=== PATIENT | male | born 1955 | race Caucasian/White ===

== ENCOUNTER 2019-06-03 15:12 | Emergency (ER) | payer OTHER ==
[2019-06-03] MEDS ORDERED: PANTOPRAZOLE 40 MG INJ ONE (15:32)
[2019-06-03] MEDS ORDERED: SUCRALFATE 1 GM TABLET ONE (15:32)
[2019-06-03 15:42] LABS: Absolute Lymphocytes (CBC) 1.7 K/uL (0.7-4.9); Basophils % 0.4 % (0-1.3); Hematocrit 38.8 % (39.6-49.0); Lymphocytes % 14.1 % (15.3-44.8); MPV 7.9 fL (7.6-11.3); RBC Red Blood Cell Count 4.26 M/uL (4.33-5.43)
[2019-06-03 15:44] LABS: Protime INR 1.07
[2019-06-03 16:00] LABS: ALT/SGPT 15 U/L (12-78); AST/SGOT 21 U/L (15-37); Albumin 3.8 g/dL (3.4-5.0); Alkaline Phosphatase 114 U/L (45-117); BUN Blood Urea Nitrogen 15 mg/dL (7-18); Bicarbonate 23 mmol/L (21-32); Bilirubin Direct 0.1 mg/dL (0-0.2); Bilirubin Total 0.3 mg/dL (0.2-1.0); Glucose Level 90 mg/dL (74-106); Potassium 3.5 mmol/L (3.5-5.1); Protein, Total 8.6 g/dL (6.4-8.2); Sodium Level 140 mmol/L (136-145)
[2019-06-03 16:01] LABS: Magnesium 2.2 mg/dL (1.8-2.4); NT PRO-BNP 96 pg/mL (<125); Troponin (Emerg Dept Use Only) < 0.02 ng/mL (0.0-0.045)
--- NOTE | 2019-06-03 16:53 | RAD REPORT ---
EXAM DESCRIPTION: [place] Single View06/03/2019 4:02 pm CLINICAL HISTORY: Chest pain COMPARISON: 2017 FINDINGS: The lungs appear clear of acute infiltrate. The heart is normal size. Elevation right hemidiaphragm is unchanged IMPRESSION: No acute abnormalities displayed
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
[2019-06-03 19:38] VITALS: TEMP 98.2
[2019-06-03 19:42] VITALS: BP 167/98; O2SAT 98
--- NOTE | 2019-06-05 11:47 | EKG ---
Test Date: 2019-06-03 Test Time: 15:18:06 Synchro Assembler: OMAIRA MEASUREMENT RESULTS: Intervals: Rate: 82 WI: 134 QRSD: 142 QT: 424 QTc: 495 [place]: P: 43 WI: 134 QRS: 13 T: 8 INTERPRETIVE STATEMENTS: Normal sinus rhythm Right bundle branch block Abnormal ECG Compared to ECG 01/14/2016 16:12:08 Right bundle-branch block now present ST (T wave) deviation no longer present Possible ischemia no longer present Electronically Signed On 06-05-19 11:42:34 MOISTURE METER READER by Julien Antony
--- NOTE | 2019-06-06 10:22 | EKG ---
Test Date: 2019-06-03 Test Time: 18:05:38 Manager Acquisition: ALFREDO MEASUREMENT RESULTS: Intervals: Rate: 68 ME: 176 QRSD: 138 QT: 442 QTc: 469 [place]: P: 39 ME: 176 QRS: 19 T: 5 INTERPRETIVE STATEMENTS: Normal sinus rhythm Right bundle branch block Abnormal ECG Compared to ECG 06/03/2019 15:18:06 No significant changes Electronically Signed On 06-06-19 10:21:59 GRADE FOREMAN by Faisal May
== END 2019-06-03 19:33 | disposition home or self-care (01) ==
LOC: ER 15:12
DX: K21.9 Gastro-esophageal reflux disease without esophagitis (principal); I10 Essential (primary) hypertension; Z88.0 Allergy status to penicillin
CPT/HCPCS: 93005 ×2; 87040 ×2; 85025; 80048; 36415; 86900; 83735; 86850; 85610; 86901; 80076; 84443; 84484 ×2; 83880; 71045; 96374; 99285; C9113

== ENCOUNTER 2020-08-10 15:21 | Emergency (ER) | payer OTHER ==
[2020-08-10] MEDS ORDERED: IBUPROFEN 400 MG TAB ONE (17:35)
--- NOTE | 2020-08-10 18:16 | RAD REPORT ---
EXAM DESCRIPTION: RAD - Wrist Right 3 View - 08/10/2020 6:01 pm CLINICAL HISTORY: Right wrist pain and swelling FINDINGS: Screws have been placed into the distal radius and ulna. Bones are osteoporotic No acute fracture or dislocation seen. No bony destructive lesion noted.
--- NOTE | 2020-08-10 19:50 | RAD REPORT ---
EXAM DESCRIPTION: USExtremity Venous [employer]08/10/2020 7:42 pm CLINICAL HISTORY: Right arm pain COMPARISON: None FINDINGS: Echogenic material compatible with acute thrombus is present within the right basilic vein . There is diminished flow. The right internal jugular, right subclavian, right cephalic, right axillary, right brachial, right ulnar and right radial veins are generally compressible and demonstrate augmentation. Doppler demons trates good flow. IMPRESSION: Acute thrombus within the right basilic vein
[2020-08-10 20:27] LABS: Absolute Lymphocytes (CBC) 2.4 K/uL (0.7-4.9); Basophils % 0.5 % (0-1.3); Hematocrit 34.5 % (39.6-49.0); Lymphocytes % 27.3 % (15.3-44.8); MPV 8.1 fL (7.6-11.3)
[2020-08-10 20:33] LABS: Protime INR 1.02
[2020-08-10 20:38] LABS: Potassium 3.9 mmol/L (3.5-5.1)
--- NOTE | 2020-08-10 21:13 | EDPHYS ---
Physician Documentation [facility] Name: Giuliano Leyva Age: 64 yrs Sex: Male : 1955 Arrival Date: 08/10/2020 Time: 15:34 Bed 7 Private MD: ED Physician Turner Cohen HPI: 08/10 17:20 This 64 yrs old Male presents to ER via EMS with complaints of Arm Pain - cp right, Wrist Pain. 17:20 The patient or guardian complains of pain, that is acute, swelling, tenderness. The cp complaints affect the right wrist. Context: resulted from unknown cause. Onset: The symptoms/episode began/occurred 3 day(s) ago. 17:20 Treatment prior to arrival includes: no previous treatment. cp 17:20 Associated signs and symptoms: Pertinent negatives: deformity, erythema, fever, cp numbness. Historical: - Allergies: 15:58 PENICILLINS; jd3 - Home Meds: 15:58 vicodin 10 mg Q6H PRN [Active]; losartan Oral [Active]; Lovastatin Oral [Active]; jd3 Pepcid Oral [Active]; - PMHx: 15:58 GERD; High Cholesterol; Hypertension; Paraplegia; jd3 - PSHx: 15:58 Appendectomy; Cholecystectomy; exploratory abd surgery; R wrist; L nephrectomy; jd3 - Immunization history:: Adult Immunizations up to date. - Social history:: Smoking status: Patient/guardian denies using tobacco, the patient reports quitting approximately 15 years ago. ROS: 17:25 Constitutional: Negative for body aches, chills, fever, poor PO intake. cp 17:25 Eyes: Negative for injury, pain, redness, and discharge. cp 17:25 Cardiovascular: Negative for chest pain. 17:25 Respiratory: Negative for cough, shortness of breath, wheezing. 17:25 MS/extremity: Positive for pain, swelling, tenderness, of the right hand and right wrist, Negative for injury or acute deformity, paresthesias. 17:25 Skin: Negative for cellulitis, rash. 17:25 All other systems are negative. Exam: 17:30 Constitutional: The patient appears in no acute distress, alert, awake, non-toxic, well cp developed, well nourished. 17:30 Head/Face: Normocephalic, atraumatic. cp 17:30 Chest/axilla: Inspection: normal. 17:30 Cardiovascular: Rate: normal. 17:30 Respiratory: the patient does not display signs of respiratory distress, Respirations: normal, no use of accessory muscles, no retractions, labored breathing, is not present. 17:30 Musculoskeletal/extremity: Extremities: grossly normal except: noted in the lateral right wrist and dorsum of proximal right hand: pain, tenderness, mild swelling, ROM: full active range of motion, in the right wrist, limited passive range of motion due to pain, in the right wrist, Perfusion: the extremity is normally perfused throughout, Sensation intact. 17:30 Skin: cellulitis, is not appreciated, no rash present. Vital Signs: 15:58 BP 127 / 72; Pulse 76; Resp 17 S; Temp 97.5(TE); Pulse Ox 97% on R/A; Weight 111.13 kg jd3 (R); Height 6 ft. 0 in. (182.88 cm) (R); Pain 8/10; 17:05 BP 117 / 65; Pulse 81; Resp 16 S; Pulse Ox 99% on R/A; ca1 18:10 BP 136 / 83; Pulse 63; Resp 16 S; Pulse Ox 100% on R/A; ca1 19:41 BP 104 / 66; Pulse 66; Resp 17; Pulse Ox 98% ; rr5 20:50 BP 103 / 70; Pulse 69; Resp 16; Pulse Ox 98% ; rr5 15:58 Body Mass Index 33.23 (111.13 kg, 182.88 cm) jd3 MDM: 17:16 Patient medically screened. 20:29 Physician consultation: Malina English MD was called at 20:29, was contacted at 20:29, regarding patient's condition, discussed findings of US showing thrombus of right basilic vein and treatment. Recommends treating with rest, ice and NSAIDs and f/u next week for recheck with primary care physician. 21:05 Data reviewed: vital signs, nurses notes, lab test result(s), radiologic studies, plain cp films, ultrasound, I have discussed the patient's presentation/case with the attending Emergency Department Physician;. 21:10 Counseling: I had a detailed discussion with the patient and/or guardian regarding: the cp historical points, exam findings, and any diagnostic results supporting the discharge/admit diagnosis, lab results, radiology results, the need for outpatient follow up, a family practitioner, to return to the emergency department if symptoms worsen or persist or if there are any questions or concerns that arise at home. 21:10 Response to treatment: the patient's symptoms have markedly improved after treatment. cp ED course: VSS. Discussed results of labs and US showing thrombus of right basilic vein. Patient reports he has appt this Thursday at [place] in which he can f/u for reevaluation. Patient instructed to apply warm compress to area, elevate, NSAIDs for pain. 08/10 20:01 Order name: CBC with Diff cp 08/10 20:01 Order name: BMP cp 08/10 20:01 Order name: PT-INR cp 08/10 20:01 Order name: Ptt, Activated cp 08/10 20:30 Order name: CBC with Automated Diff; Complete Time: 21:04 EDMS 08/10 20:38 Order name: Basic Metabolic Panel; Complete Time: 21:04 EDMS 08/10 17:16 Order name: XRAY Wrist RIGHT 3 view; Complete Time: 19:52 cp 08/10 18:16 Order name: US Extremity Venous Unilateral Ltd cp 08/10 19:51 Order name: US; Complete Time: 19:52 EDMS 08/10 19:52 Interpretation: Report reviewed. cp 08/10 20:39 Order name: Protime (+INR); Complete Time: 21:04 EDMS 08/10 20:39 Order name: PTT, Activated Partial Thromb; Complete Time: 21:04 EDMS 08/10 21:11 Order name: Wrist Splint; Complete Time: 21:36 cp Administered Medications: 17:21 Drug: Ibuprofen 800 mg Route: PO; ca1 20:05 Follow up: Response: No adverse reaction mg2 21:37 Drug: TORadol - Ketorolac 15 mg Route: IVP; Site: left wrist; mg2 21:37 Follow up: Response: No adverse reaction mg2 Disposition: 08/11 06:49 Co-signature as Attending Physician, Turner Cohen MD I agree with the assessment and kdr plan of care. Disposition: 08/10/20 21:12 Discharged to Home. Impression: Acute embolism and thrombosis of superficial veins of right upper extremity. - Condition is Stable. - Discharge Instructions: Elastic Bandage and RICE, Venous Thromboembolism. - Prescriptions for Ibuprofen 800 mg Oral Tablet - take 1 tablet by ORAL route every 8 hours As needed take with food; 30 tablet. - Medication Reconciliation Form, Thank You Letter, Antibiotic Education, Prescription Opioid Use form. - Follow up: Private Physician; When: next week as scheduled; Reason: Recheck today's complaints. - Problem is new. - Symptoms have improved. Signatures: Dispatcher [employer] EDMS Turner Cohen MD MD kdr Eulalio Abraham PA PA cp Davies, Jonathon, RN RN jd3 Jh Castellanos RN RN mg2 Shawna Stanley RN RN ca1 Corrections: (The following items were deleted from the chart) 08/10 21:38 21:12 08/10/2020 21:12 Discharged to Home. Impression: Acute embolism and thrombosis of mg2 superficial veins of right upper extremity. Condition is Stable. Forms are Medication Reconciliation Form, Thank You Letter, Antibiotic Education, Prescription Opioid Use. Follow up: Private Physician; When: next week as scheduled; Reason: Recheck today's complaints. Problem is new. Symptoms have improved. cp 08/11 15:34 08/10 17:20 Onset: The symptoms/episode began/occurred 2 day(s) ago, cp cp
--- NOTE | 2020-08-10 21:13 | ER ---
Nurse's Notes [facility] Name: Giuliano Leyva Age: 64 yrs Sex: Male : 1955 Arrival Date: 08/10/2020 Time: 15:34 Bed 7 Private MD: Diagnosis: Acute embolism and thrombosis of superficial veins of right upper extremity Presentation: 08/10 15:56 Chief complaint: Patient states: Starting Thursday I started to have some swelling and jd3 pain in my right arm/hand. since then it has only gotten worse and more swollen. history of cellulitis, but I don't think that it is that, I don't have any injury, but I think it might be a stress fracture.". Coronavirus screen: At this time, the client does not indicate any symptoms associated with coronavirus-19. Ebola Screen: Patient negative for fever greater than or equal to 101.5 degrees Fahrenheit, and additional compatible Ebola Virus Disease symptoms. Initial Sepsis Screen: Does the patient meet any 2 criteria? No. Patient's initial sepsis screen is negative. Does the patient have a suspected source of infection? No. Patient's initial sepsis screen is negative. Risk Assessment: Do you want to hurt yourself or someone else? Patient reports no desire to harm self or others. Onset of symptoms was August 10, 2020. 15:56 Method Of Arrival: EMS: Home EMS jd3 15:56 Acuity: MISAEL 3 jd3 Historical: - Allergies: 15:58 PENICILLINS; jd3 - Home Meds: 15:58 vicodin 10 mg Q6H PRN [Active]; losartan Oral [Active]; Lovastatin Oral [Active]; jd3 Pepcid Oral [Active]; - PMHx: 15:58 GERD; High Cholesterol; Hypertension; Paraplegia; jd3 - PSHx: 15:58 Appendectomy; Cholecystectomy; exploratory abd surgery; R wrist; L nephrectomy; jd3 - Immunization history:: Adult Immunizations up to date. - Social history:: Smoking status: Patient/guardian denies using tobacco, the patient reports quitting approximately 15 years ago. Screenin:05 Abuse screen: Denies threats or abuse. Denies injuries from another. Nutritional ca1 screening: No deficits noted. Tuberculosis screening: No symptoms or risk factors identified. Fall Risk None identified. Assessment: 17:05 General: Appears in no apparent distress. comfortable, Behavior is calm, cooperative, ca1 appropriate for age. Pain: Complains of pain in right wrist Pain currently is 8 out of 10 on a pain scale. Pain began 4 hours ago. 4 DAYS. Neuro: Level of Consciousness is awake, alert, obeys commands, Oriented to person, place, time, Appropriate for age. Derm: Skin is intact, is healthy with good turgor, Skin is pink, warm \\T\\ dry. Musculoskeletal: Circulation, motion, and sensation intact. Capillary refill < 3 seconds, Range of motion: limited in right wrist Swelling present in right wrist. 18:10 Reassessment: Patient appears in no apparent distress at this time. Patient and/or ca1 family updated on plan of care and expected duration. Pain level reassessed. Patient is alert, oriented x 3, equal unlabored respirations, skin warm/dry/pink. 19:39 General: Appears in no apparent distress. comfortable, Behavior is calm, cooperative, rr5 appropriate for age. Neuro: Level of Consciousness is awake, alert, obeys commands, Oriented to person, place, time. Cardiovascular: Capillary refill < 3 seconds Patient's skin is warm and dry. Respiratory: Airway is patent Respiratory effort is even, unlabored, Respiratory pattern is regular, symmetrical. GI: No signs and/or symptoms were reported involving the gastrointestinal system. : No signs and/or symptoms were reported regarding the genitourinary system. EENT: No signs and/or symptoms were reported regarding the EENT system. Derm: Skin is intact, is healthy with good turgor, Skin temperature is warm. Musculoskeletal: Capillary refill < 3 seconds, Swelling present in right wrist Reports pain in right arm and right wrist. 20:40 Reassessment: Patient appears in no apparent distress at this time. Patient is alert, rr5 oriented x 3, equal unlabored respirations, skin warm/dry/pink. snacks given with good appetite. 21:35 Reassessment: Patient appears in no apparent distress at this time. Patient is alert, rr5 oriented x 3, equal unlabored respirations, skin warm/dry/pink. discharge instruction given and explained without complaints made. Vital Signs: 15:58 BP 127 / 72; Pulse 76; Resp 17 S; Temp 97.5(TE); Pulse Ox 97% on R/A; Weight 111.13 kg jd3 (R); Height 6 ft. 0 in. (182.88 cm) (R); Pain 8/10; 17:05 BP 117 / 65; Pulse 81; Resp 16 S; Pulse Ox 99% on R/A; ca1 18:10 BP 136 / 83; Pulse 63; Resp 16 S; Pulse Ox 100% on R/A; ca1 19:41 BP 104 / 66; Pulse 66; Resp 17; Pulse Ox 98% ; rr5 20:50 BP 103 / 70; Pulse 69; Resp 16; Pulse Ox 98% ; rr5 15:58 Body Mass Index 33.23 (111.13 kg, 182.88 cm) jd3 ED Course: 15:34 Patient arrived in ED. am2 15:57 Triage completed. jd3 16:00 Arm band placed on. jd3 17:05 Patient has correct armband on for positive identification. Bed in low position. Call ca1 light in reach. Side rails up X 1. Pulse ox on. NIBP on. Warm blanket given. 17:07 Eulalio Abraham PA is PHCP. cp 17:07 Turner Cohen MD is Attending Physician. cp 17:10 Shawna Stanley RN is Primary Nurse. ca1 18:10 XRAY Wrist RIGHT 3 view In Process Unspecified. EDMS 19:15 ultrasound at bedside. rr5 19:43 No provider procedures requiring assistance completed. mg2 20:20 Inserted saline lock: 20 gauge in left wrist, using aseptic technique. Blood collected. rr5 21:37 IV discontinued, intact, bleeding controlled, No redness/swelling at site. Pressure mg2 dressing applied. Velcro wrist splint applied to right wrist. Administered Medications: 17:21 Drug: Ibuprofen 800 mg Route: PO; ca1 20:05 Follow up: Response: No adverse reaction mg2 21:37 Drug: TORadol - Ketorolac 15 mg Route: IVP; Site: left wrist; mg2 21:37 Follow up: Response: No adverse reaction mg2 Outcome: 21:12 Discharge ordered by . cp 21:37 Discharged to home via wheelchair. mg2 21:37 Condition: stable 21:37 Discharge instructions given to patient, Instructed on discharge instructions, follow up and referral plans. medication usage, Demonstrated understanding of instructions, follow-up care, medications, Prescriptions given X 1. 21:38 Patient left the ED. mg2 Signatures: Dispatcher [employer] EDMS Eulalio Abraham PA PA cp Moreno, Amanda am2 Oleksandr Grigsby RN RN jd3 Jh Castellanos RN RN mg2 Boris Matias, HAYDEN RN rr5 Shawna Stanley RN RN ca1 Corrections: (The following items were deleted from the chart) 16:01 15:56 Chief complaint: Patient states: Starting Thursday I started to have some swelling jd3 and pain in my right arm/hand. since then it has only gotten worse and more swollen. history of cellulitis." jd3
[2020-08-10] MEDS ORDERED: KETOROLAC 30 MG/ML INJ ONE (21:31)
== END 2020-08-10 21:38 | disposition home or self-care (01) ==
LOC: ER 15:21
DX: I82.611 Acute embolism and thrombosis of superficial veins of right upper extremity (principal); I10 Essential (primary) hypertension; E78.00 Pure hypercholesterolemia, unspecified; Z88.0 Allergy status to penicillin
CPT/HCPCS: 36415; 80048; 85025; 85610; 85730; 93971; 96374; 99284

== ENCOUNTER 2021-01-26 16:06 | Emergency (ER) | payer OTHER ==
[2021-01-26] MEDS ORDERED: ONDANSETRON 4 MG/2 ML VIAL ONE (17:04)
[2021-01-26] MEDS ORDERED: MORPHINE 4 MG/ML SYR ONE ×2 (17:04→18:41)
--- NOTE | 2021-01-26 17:28 | RAD REPORT ---
EXAM DESCRIPTION: RAD - Wrist Right 3 View - 01/26/2021 4:54 pm CLINICAL HISTORY: Right wrist pain FINDINGS: Screws affix old fractures of the distal radius and ulna. An old fracture involves the fifth metacarpal. No acute fracture or dislocation seen. Bones are osteoporotic. Soft tissue swelling is present. 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
--- NOTE | 2021-01-26 18:22 | ER ---
Nurse's Notes [facility] Name: Giuliano Leyva Age: 65 yrs Sex: Male : 1955 Arrival Date: 01/26/2021 Time: 16:12 Bed 9 Private MD: Diagnosis: Pain in right wrist Presentation: 01/26 16:12 Chief complaint: EMS states: Pt c/o Right Arm/wrist pain. Swelling at the Right wrist. vg1 Denies fall or injury. Pt states was here a couple of months ago and was told had clots. Pt then went to [place] and pt was told there had no blood clots. Coronavirus screen: Client denies travel out of the [place] in the last 14 days. Ebola Screen: Patient negative for fever greater than or equal to 101.5 degrees Fahrenheit, and additional compatible Ebola Virus Disease symptoms. Initial Sepsis Screen: Does the patient meet any 2 criteria? No. Patient's initial sepsis screen is negative. Does the patient have a suspected source of infection? No. Patient's initial sepsis screen is negative. Risk Assessment: Do you want to hurt yourself or someone else? Patient reports no desire to harm self or others. Onset of symptoms was January 26, 2021. 16:12 Method Of Arrival: EMS: [facility] 16:12 Acuity: MISAEL 3 vg1 Triage Assessment: 16:14 General: Appears in no apparent distress. uncomfortable, Behavior is cooperative, vg1 anxious. Pain: Complains of pain in right arm Pain radiates to Pain in Right wrist radiates to Right Elbow Pain currently is 10 out of 10 on a pain scale. Quality of pain is described as aching, shooting, Noted to be grimacing, guarding, moaning. EENT: No signs and/or symptoms were reported regarding the EENT system. Neuro: Level of Consciousness is awake, alert, obeys commands, Oriented to person, place, time, situation. Cardiovascular: Patient's skin is warm and dry. Respiratory: Airway is patent Respiratory effort is even, unlabored. GI: No signs and/or symptoms were reported involving the gastrointestinal system. : No signs and/or symptoms were reported regarding the genitourinary system. Derm: Skin is intact, is healthy with good turgor, Bruising that is on Right wrist. Musculoskeletal: Range of motion: limited in right wrist. Historical: - Allergies: 16:14 PENICILLINS; vg1 - Home Meds: 16:14 losartan Oral [Active]; Lovastatin Oral [Active]; Pepcid Oral [Active]; vicodin 10 mg vg1 Q6H PRN [Active]; - PMHx: 16:14 GERD; High Cholesterol; Hypertension; Paraplegia; vg1 - Immunization history:: Adult Immunizations up to date, Client reports receiving the Raudel \T\ Raudel single-dose vaccine. - Social history:: Smoking status: Patient denies any tobacco usage or history of. Screenin:19 Abuse screen: Denies threats or abuse. Nutritional screening: No deficits noted. vg1 Tuberculosis screening: No symptoms or risk factors identified. Fall Risk No fall in past 12 months (0 pts). No secondary diagnosis (0 pts). No IV (0 pts). Ambulatory Aid- Crutches/Cane/Walker (15 pts). Gait- Impaired (20 pts.). Mental Status- Oriented to own ability (0 pts). Total Smith Fall Scale indicates Low Risk Score (25-44 pts). Fall prevention measures have been instituted. Side Rails Up X 2 Placed close to Nursing Station. Assessment: 16:15 Reassessment: see triage. vg1 18:12 Reassessment: Patient appears in no apparent distress at this time. No changes from vg1 previously documented assessment. Patient and/or family updated on plan of care and expected duration. Pain level reassessed. Patient is alert, oriented x 3, equal unlabored respirations, skin warm/dry/pink. Pt states pain is still present. Provider notified. 18:53 Reassessment: Patient appears in no apparent distress at this time. No changes from vg1 previously documented assessment. Patient and/or family updated on plan of care and expected duration. Pain level reassessed. Patient is alert, oriented x 3, equal unlabored respirations, skin warm/dry/pink. Vital Signs: 16:12 BP 183 / 75; Pulse 94; Resp 20; Temp 100.3; Pulse Ox 100% ; Weight 104.33 kg; Height 6 vg1 ft. 0 in. (182.88 cm); Pain 10/10; 18:00 BP 178 / 72; Pulse 90; Resp 18; Pulse Ox 98% ; vg1 16:12 Body Mass Index 31.19 (104.33 kg, 182.88 cm) vg1 ED Course: 16:12 Patient arrived in ED. vg1 16:14 Triage completed. vg1 16:19 Effie Candelario, RN is Primary Nurse. vg1 16:19 Patient has correct armband on for positive identification. Bed in low position. Call vg1 light in reach. Side rails up X2. 16:19 Arm band placed on. vg1 16:22 Grover Ferguson PA is PHCP. [facility] 16:22 Eulalio Eaton MD is Attending Physician. m 16:54 Wrist Right 3 View XRAY In Process Unspecified. EDMS 16:58 No provider procedures requiring assistance completed. Initial lab(s) drawn, by mn, vg1 sent to lab. Inserted saline lock: 20 gauge in left antecubital area, using aseptic technique. Blood collected. 18:06 US Extremity Venous Unilateral Ltd In Process Unspecified. EDMS 18:54 IV discontinued, intact, bleeding controlled, No redness/swelling at site. Pressure vg1 dressing applied. Administered Medications: 17:00 Drug: Zofran (Ondansetron) 4 mg Route: IVP; Site: left antecubital; vg1 18:11 Follow up: Response: No adverse reaction vg1 17:02 Drug: morphine 4 mg Route: IVP; Site: left antecubital; vg1 18:11 Follow up: Response: No adverse reaction vg1 18:20 Drug: Decadron - Dexamethasone 10 mg Route: IVP; Site: left antecubital; vg1 18:54 Follow up: Response: No adverse reaction vg1 18:23 Drug: morphine 4 mg Route: IVP; Site: left antecubital; vg1 18:54 Follow up: Response: No adverse reaction vg1 18:54 Follow up: Response: Marked relief of symptoms vg1 Outcome: 18:22 Discharge ordered by . [facility] 18:53 Discharged to home via wheelchair. vg1 18:53 Condition: stable 18:53 Discharge instructions given to patient, Instructed on discharge instructions, follow up and referral plans. medication usage, Demonstrated understanding of instructions, follow-up care, medications, Prescriptions given X 2. 18:54 Patient left the ED. vg1 Signatures: Dispatcher [employer] EDMS Grover Ferguson PA PA jmm Effie aCndelario, RN RN vg1
--- NOTE | 2021-01-26 18:22 | EDPHYS ---
Physician Documentation [facility] Name: Giuliano Leyva Age: 65 yrs Sex: Male : 1955 Arrival Date: 01/26/2021 Time: 16:12 Bed 9 Private MD: ISAIAH Physician Eulalio Eaton HPI: 01/26 18:19 This 65 yrs old Male presents to ER via EMS with complaints of Arm Pain. jmm 18:19 The patient or guardian complains of pain. Onset: The symptoms/episode began/occurred jmm gradually, 2 day(s) ago. Modifying factors: The symptoms are alleviated by nothing. the symptoms are aggravated by movement. This is a 65-year-old male with a history of hyperlipidemia, hypertension, paraplegia the presents emerged part with complaints of worsening right wrist pain. Patient states the pain has been on and off for the past 6 months. Patient was previously diagnosed with a DVT in the arm but was reevaluated and told the patient did not have a DVT. Patient does have a low-grade fever he attributes to a urinary tract infection.. Historical: - Allergies: 16:14 PENICILLINS; vg1 - Home Meds: 16:14 losartan Oral [Active]; Lovastatin Oral [Active]; Pepcid Oral [Active]; vicodin 10 mg vg1 Q6H PRN [Active]; - PMHx: 16:14 GERD; High Cholesterol; Hypertension; Paraplegia; vg1 - Immunization history:: Adult Immunizations up to date, Client reports receiving the Raudel \T\ Raudel single-dose vaccine. - Social history:: Smoking status: Patient denies any tobacco usage or history of. ROS: 18:19 Constitutional: Negative for fever, chills, and weight loss, Cardiovascular: Negative jmm for chest pain, palpitations, and edema, Respiratory: Negative for shortness of breath, cough, wheezing, and pleuritic chest pain. 18:19 MS/extremity: Positive for pain. 18:19 All other systems are negative. Exam: 18:19 Constitutional: This is a well developed, well nourished patient who is awake, alert, jmm and in no acute distress. Head/Face: atraumatic. Eyes: EOMI, no conjunctival erythema appreciated ENT: Moist Mucus Membranes Neck: Trachea midline, Supple Chest/axilla: Normal chest wall appearance and motion. Cardiovascular: Regular rate and rhythm. No edema appreciated Respiratory: Normal respirations, no respiratory distress appreciated Abdomen/GI: Non distended, soft Back: Normal ROM Skin: General appearance color normal 18:19 Musculoskeletal/extremity: Swelling noted to the right wrist, compartments are soft, exquisitely tender to palpation, no erythema or induration appreciated, full radial pulse, neurovascular intact. 18:19 Neuro: Orientation: is normal, Mentation: is normal, Memory: is normal. 18:19 Psych: Behavior/mood is cooperative, anxious. Vital Signs: 16:12 BP 183 / 75; Pulse 94; Resp 20; Temp 100.3; Pulse Ox 100% ; Weight 104.33 kg; Height 6 vg1 ft. 0 in. (182.88 cm); Pain 10/10; 18:00 BP 178 / 72; Pulse 90; Resp 18; Pulse Ox 98% ; vg1 16:12 Body Mass Index 31.19 (104.33 kg, 182.88 cm) vg1 MDM: 16:28 Patient medically screened. [facility] 18:21 Data reviewed: vital signs, nurses notes. Counseling: I had a detailed discussion with sergo the patient and/or guardian regarding: the historical points, exam findings, and any diagnostic results supporting the discharge/admit diagnosis, lab results, the need for outpatient follow up, to return to the emergency department if symptoms worsen or persist or if there are any questions or concerns that arise at home. ED course: Patient is alert nontoxic in appearance in the ER. I do not suspect a septic joint. There has been no recent instrumentation. No erythema at the joint. Uric acid levels are elevated. I do do have some concerns the patient has a gouty inflammatory process. Will treat with start steroids. Patient has received partial relief in the ER. Patient is otherwise advised to follow-up with orthopedics and otherwise given strict return precautions. Patient understood and agrees plan of care.. 01/26 16:43 Order name: Uric Acid; Complete Time: 18:13 [facility] 01/26 16:35 Order name: Wrist Right 3 View XRAY; Complete Time: 17:34 [facility] 01/26 16:35 Order name: US Extremity Venous Unilateral Ltd; Complete Time: 18:48 [facility] 01/26 16:35 Order name: Saline Lock; Complete Time: 17:02 jmm Administered Medications: 17:00 Drug: Zofran (Ondansetron) 4 mg Route: IVP; Site: left antecubital; vg1 18:11 Follow up: Response: No adverse reaction vg1 17:02 Drug: morphine 4 mg Route: IVP; Site: left antecubital; vg1 18:11 Follow up: Response: No adverse reaction vg1 18:20 Drug: Decadron - Dexamethasone 10 mg Route: IVP; Site: left antecubital; vg1 18:54 Follow up: Response: No adverse reaction vg1 18:23 Drug: morphine 4 mg Route: IVP; Site: left antecubital; vg1 18:54 Follow up: Response: No adverse reaction vg1 18:54 Follow up: Response: Marked relief of symptoms vg1 Disposition: 01/27 09:15 Co-signature as Attending Physician, Eulalio Eaton MD I agree with the assessment and juany plan of care. Disposition Summary: 01/26/21 18:22 Discharge Ordered Location: Home [facility] Condition: Stable [facility] Diagnosis - Pain in right wrist [facility] Followup: [facility] - With: Private Physician - When: 2 - 3 days - Reason: Recheck today's complaints, Continuance of care, Re-evaluation by your physician Discharge Instructions: - Discharge Summary Sheet [facility] - Joint Pain [facility] Forms: - Medication Reconciliation Form [facility] - Thank You Letter [facility] - Antibiotic Education [facility] - Prescription Opioid Use [facility] Prescriptions: - Prednisone 20 mg Oral Tablet - take 3 tablets by ORAL route once daily for 5 days; 15 tablet; Refills: 0, [facility] Product Selection Permitted - Cephalexin 500 mg Oral Capsule - take 1 capsule by ORAL route every 6 hours for 10 days; 40 capsule; Refills: 0, [facility] Product Selection Permitted Signatures: Dispatcher [employer] Eulalio Alonso MD MD cha Mickail, Joel, PA PA jmm Garcia, Victoria, RN RN vg1 Corrections: (The following items were deleted from the chart) 01/26 16:50 16:36 D-DIMER+[id number].BRZ ordered. CATRACHITO WINSTON
--- NOTE | 2021-01-26 18:28 | RAD REPORT ---
EXAM DESCRIPTION: USExtremity Venous Uni Ltd01/26/2021 6:06 pm CLINICAL HISTORY: Right arm swelling COMPARISON: None FINDINGS: The right internal jugular, right subclavian, right cephalic, right axillary, right brach ial, right basilic, right ulnar and right radial veins are generally compressible and demonstrate au gmentation. Doppler demonstrates good flow. IMPRESSION: No evidence of thrombus within the veins of the right upper extremity
[2021-01-26] MEDS ORDERED: dexAMETHasone 10 MG/ML VIAL ONE (18:41)
[2021-01-26 19:04] VITALS: TEMP 100.3
[2021-01-26 19:05] VITALS: BP 178/72; O2SAT 98
== END 2021-01-26 18:54 | disposition home or self-care (01) ==
LOC: ER 16:06
DX: M25.531 Pain in right wrist (principal); I10 Essential (primary) hypertension; Z86.718 Personal history of other venous thrombosis and embolism; Z88.0 Allergy status to penicillin
CPT/HCPCS: 36415; 84550; 73110; 93971; 96375; 96374; 99284; J1100; J2405

== ENCOUNTER 2021-08-30 13:07 | Emergency (ER) | payer OTHER ==
[2021-08-30 13:48] LABS: Hematocrit 33.1 % (39.6-49.0); Lymphocytes % 8.9 % (15.3-44.8); MPV 7.7 fL (7.6-11.3); RBC Red Blood Cell Count 3.51 M/uL (4.33-5.43)
[2021-08-30 13:53] LABS: Protime INR 1.17
[2021-08-30] MEDS ORDERED: ASPIRIN 81 MG CHEWABLE TABLET ONE (13:54)
[2021-08-30] MEDS ORDERED: FAMOTIDINE 20 MG/2 ML VIAL IV ONE (13:54)
[2021-08-30] MEDS ORDERED: ONDANSETRON 4 MG/2 ML VIAL ONE (13:54)
[2021-08-30] MEDS ORDERED: MORPHINE 4 MG/ML SYR ONE (14:03)
--- NOTE | 2021-08-30 14:27 | RAD REPORT ---
EXAM DESCRIPTION: RAD - Chest Single View - 08/30/2021 2:16 pm CLINICAL HISTORY: COUGH COMPARISON: Portable 06/03/2019 TECHNIQUE: AP portable chest image was obtained 08/30/2021 2:16 pm . FINDINGS: Lung volumes are low which accentuates the democrat prominent baseline fibrotic pattern. Incr eased interstitial thickening could be artifact or represent true edema or infiltrate. Interval villagomez e is slightly more prominent on the left. No masslike consolidation seen. Cardiac silhouette is prominent but not clearly different. Central vascular engorgement is seen. No measurable pleural effusion and no pneumothorax. No acute bony abnormality seen. No acute aortic findings suspected. IMPRESSION: No focal consolidations seen typical for bacterial pneumonia. Shallow inspiration accentuates the baseline fibrotic lung pattern. Mild failure, volume overload or acute interstitial infiltrate could be masked.
[2021-08-30 14:31] LABS: Albumin 3.1 g/dL (3.4-5.0); Bilirubin Direct 0.1 mg/dL (0-0.2); Bilirubin Total 0.3 mg/dL (0.2-1.0); Protein, Total 7.8 g/dL (6.4-8.2); Troponin High Sensitivity 40.2 pg/mL (<58.9)
[2021-08-30 14:35] LABS: Magnesium 2.1 mg/dL (1.8-2.4); Potassium 3.5 mmol/L (3.5-5.1)
--- NOTE | 2021-08-30 15:15 | RAD REPORT ---
EXAM DESCRIPTION: CT - Chest For Pe Angio - 08/30/2021 2:56 pm CLINICAL HISTORY: Chest pain;SOB COMPARISON: Chest Single View dated 08/30/2021 TECHNIQUE: Dynamically enhanced 3 mm thick images of the chest were obtained during administration o f approximately 150mL Isovue 370 IV contrast. Coronal and oblique MIP reconstruction images were gene rated and reviewed. Exam utilizes a protocol to evaluate the pulmonary arterial tree. All CT scans are performed using dose optimization technique as appropriate and may include automated exposure control or mA/KV adjustment according to patient size. FINDINGS: No pulmonary emboli are identified. The aorta as imaged shows no acute or suspicious finding. No pericardial thickening or effusion. No suspicious mass and no focal consolidations seen. Fibrotic scarring changes are evident. Interstit ial thickening is present more prominent in the left upper lobe. Most of this is likely interstitial fibrosis. Superimposed interstitial edema or infiltrate is certainly possible. No pleural effusion or pleural thickening. No mediastinal or hilar suspicious masses. No chest wall masses or abnormal axillary lymphadenopathy. No endobronchial lesion or abnormal bronchial wall thickening identifiable. IMPRESSION: No pulmonary emboli identified. Prominent interstitial thickening throughout the lung mar, worse in the left upper lobe. This is m ostly interstitial fibrosis. Concurrent interstitial edema or infiltrate is certainly possible. No suspicious mass or consolidated parenchyma.
[2021-08-30] MEDS ORDERED: IPRATROPIUM BROM 0.5MG/2.5ML ONE (16:20)
[2021-08-30] MEDS ORDERED: METHYLPREDNISOLONE 125 MG INJ ONE (16:20)
[2021-08-30] MEDS ORDERED: ALBUTEROL 2.5 MG/3 ML NEB SOL ONE (16:20)
[2021-08-30] MEDS ORDERED: BENZONATATE 100 MG CAP PO ONE (16:55)
[2021-08-30 17:15] LABS: SARS-COV-2 RT PCR NEGATIVE (NEGATIVE)
[2021-08-30] MEDS ORDERED: HYDROCODONE/CHLORPHEN 5 ML/OSYR ONE (18:06)
--- NOTE | 2021-08-30 18:15 | ER ---
Nurse's Notes [facility] Name: Giuliano Leyva Age: 65 yrs Sex: Male : 1955 Arrival Date: 08/30/2021 Time: 13:15 Bed 13 Private MD: Diagnosis: Chest pain, unspecified;Acute bronchitis, unspecified Presentation: 08/30 13:15 Chief complaint: EMS states: SOB. Coronavirus screen: At this time, the client does not bp indicate any symptoms associated with coronavirus-19. Ebola Screen: No symptoms or risks identified at this time. Initial Sepsis Screen: Does the patient meet any 2 criteria? No. Patient's initial sepsis screen is negative. Does the patient have a suspected source of infection? No. Patient's initial sepsis screen is negative. Risk Assessment: Do you want to hurt yourself or someone else? Patient reports no desire to harm self or others. Onset of symptoms is unknown. 13:15 Method Of Arrival: EMS: [facility] bp 13:15 Acuity: MISAEL 3 bp Triage Assessment: 13:15 General: Appears in no apparent distress. uncomfortable, obese, Behavior is calm, bp cooperative, appropriate for age. Pain: Complains of pain in back. EENT: No deficits noted. Neuro: Level of Consciousness is awake, alert, obeys commands, Oriented to Appropriate for age PARAPLEGIC AT B/S. Cardiovascular: No deficits noted. Respiratory: Reports shortness of breath Breath sounds are clear bilaterally. GI: No signs and/or symptoms were reported involving the gastrointestinal system. : No signs and/or symptoms were reported regarding the genitourinary system. Derm: No deficits noted. Musculoskeletal: No deficits noted. Historical: - Allergies: 15:14 PENICILLINS; bp - Home Meds: 15:14 losartan Oral [Active]; Lovastatin Oral [Active]; Pepcid Oral [Active]; vicodin 10 mg bp Q6H PRN [Active]; - PMHx: 15:14 GERD; High Cholesterol; Hypertension; Paraplegia; bp - Immunization history:: Adult Immunizations up to date. - Social history:: Smoking status: Patient denies any tobacco usage or history of. Screenin:15 Abuse screen: Denies threats or abuse. Denies injuries from another. Nutritional bp screening: No deficits noted. Tuberculosis screening: No symptoms or risk factors identified. Fall Risk None identified. Assessment: 13:15 General: SEE TRIAGE NOTE. bp 15:11 Reassessment: PT RETURNED FROM RADIOLOGY. bp 17:00 Reassessment: No changes from previously documented assessment. Patient and/or family bp updated on plan of care and expected duration. Pain level reassessed. 19:00 Reassessment: PT D/C HOME VIA EMS, DX WITH BRONCHITIS. bp Vital Signs: 13:16 BP 134 / 52; Pulse 77; Temp 98.6; Pulse Ox 96% ; tp1 15:13 BP 120 / 91; Pulse 77; Resp 17; Pulse Ox 95% ; bp 17:00 BP 125 / 90; Pulse 83; Resp 16; Pulse Ox 96% ; bp 19:00 BP 137 / 78; Pulse 81; Resp 17; Temp 98.5; Pulse Ox 95% ; bp ED Course: 13:15 Patient arrived in ED. eb 13:15 Maintain EMS IV. Dressing intact. Good blood return noted. Site clean \T\ dry. Gauge \T\ bp site: 20 G LEFT WRIST. 13:15 Patient has correct armband on for positive identification. Bed in low position. Call bp light in reach. Side rails up X2. 13:16 Eulalio Abraham PA is PHCP. cp 13:16 Bk Dennis MD is Attending Physician. cp 13:21 Car Chaudhari, HAYDEN is Primary Nurse. bp 13:30 Inserted saline lock: 20 gauge in right antecubital area, using aseptic technique. bp Blood collected. 14:18 XRAY Chest (1 view) In Process Unspecified. EDMS 14:58 CT Chest For PE Angio In Process Unspecified. EDMS 15:16 Triage completed. bp 19:11 No provider procedures requiring assistance completed. IV discontinued, intact, bp bleeding controlled, No redness/swelling at site. Pressure dressing applied. Administered Medications: 13:25 Drug: Aspirin Chewable Tablet 324 mg Route: PO; bp 15:18 Follow up: Response: No adverse reaction bp 13:25 Drug: Zofran (Ondansetron) 4 mg Route: IVP; Site: right antecubital; bp 15:18 Follow up: Response: No adverse reaction bp 13:25 Drug: Pepcid (famotidine) 20 mg Route: IVP; Site: right antecubital; bp 15:18 Follow up: Response: No adverse reaction bp 14:00 Drug: morphine 4 mg Route: IVP; Site: right antecubital; bp 15:18 Follow up: Response: Pain is decreased bp 16:20 Drug: SOLU-Medrol (methylPrednisoLONE) 125 mg Route: IVP; Site: right antecubital; bp 16:54 Follow up: Response: No adverse reaction bp 16:20 Drug: Albuterol - atroVENT (ipratropium) (3:1) (2.5 mg - 0.5 mg) 3 ml Route: Nebulizer; bp 16:54 Follow up: Response: Marked relief of symptoms bp 16:56 Drug: Tessalon Perle (benzonatate) 200 mg Route: PO; bp 16:56 Follow up: Response: No adverse reaction bp 18:00 Drug: Tussionex Pennkinetic ER (chlorpheniramine-hydrocodone) Suspension 5 ml Route: PO;bp 19:12 Follow up: Response: No adverse reaction bp Outcome: 18:15 Discharge ordered by MD. cp 19:11 Discharged to home via ambulance. bp 19:11 Condition: stable 19:11 Discharge instructions given to patient, Instructed on discharge instructions, follow up and referral plans. medication usage, Demonstrated understanding of instructions, follow-up care, medications, Prescriptions given X 3. 19:12 Patient left the ED. bp Signatures: Dispatcher [employer] EDMS Eulalio Abraham PA PA cp Peltier, Brian, HAYDEN RN Amber Segal Tiffany tp1
--- NOTE | 2021-08-30 18:15 | EDPHYS ---
Physician Documentation [facility] Name: Giuliano Leyva Age: 65 yrs Sex: Male : 1955 Arrival Date: 08/30/2021 Time: 13:15 Bed 13 Private MD: ED Physician Bk Dennis HPI: 08/30 13:25 This 65 yrs old Male presents to ER via EMS with complaints of Shortness Of Breath. cp 13:25 The patient or guardian reports cough, with productive sputum, difficulty breathing. cp Onset: The symptoms/episode began/occurred 3 day(s) ago. Associated signs and symptoms: Pertinent positives: chest pain, with cough, nausea, vomiting, radiating pain to back, Pertinent negatives: diarrhea, ear ache, sore throat. Historical: - Allergies: 15:14 PENICILLINS; bp - Home Meds: 15:14 losartan Oral [Active]; Lovastatin Oral [Active]; Pepcid Oral [Active]; vicodin 10 mg bp Q6H PRN [Active]; - PMHx: 15:14 GERD; High Cholesterol; Hypertension; Paraplegia; bp - Immunization history:: Adult Immunizations up to date. - Social history:: Smoking status: Patient denies any tobacco usage or history of. ROS: 13:30 Constitutional: Negative for body aches, chills, fever, poor PO intake. cp 13:30 Eyes: Negative for injury, pain, redness, and discharge. cp 13:30 ENT: Negative for drainage from ear(s), ear pain, sore throat, difficulty swallowing, difficulty handling secretions. 13:30 Cardiovascular: Positive for chest pain, with cough, Negative for edema, palpitations. 13:30 Respiratory: Positive for cough, shortness of breath, Negative for wheezing. 13:30 Abdomen/GI: Positive for nausea and vomiting, Negative for abdominal pain, diarrhea, constipation. 13:30 Back: Positive for radiated pain, Negative for injury or acute deformity. 13:30 : Negative for urinary symptoms. 13:30 Neuro: Negative for altered mental status, dizziness, headache, weakness. 13:30 All other systems are negative. Exam: 13:33 Constitutional: The patient appears in no acute distress, alert, awake, cp non-diaphoretic, non-toxic, well developed, well nourished, obese. 13:33 Head/Face: Normocephalic, atraumatic. cp 13:33 Eyes: Periorbital structures: appear normal, Conjunctiva: normal, no exudate, no injection, Sclera: no appreciated abnormality, Lids and lashes: appear normal, bilaterally. 13:33 ENT: External ear(s): are unremarkable, Ear canal(s): are normal, clear, TM's: dullness, bilaterally, Nose: is normal, Mouth: Lips: moist, Oral mucosa: pink and intact, moist, Posterior pharynx: Airway: no evidence of obstruction, patent, Tonsils: are normal in appearance, swelling, is not appreciated, erythema, is not appreciated, exudate, is not appreciated. 13:33 Neck: ROM/movement: is normal, is supple, without pain, no range of motions limitations, no meningismus. 13:33 Chest/axilla: Inspection: normal, Palpation: is normal, no crepitus, no tenderness. 13:33 Cardiovascular: Rate: normal, Rhythm: regular, Edema: is not appreciated, JVD: is not appreciated. 13:33 Respiratory: the patient does not display signs of respiratory distress, Respirations: normal, no use of accessory muscles, no retractions, labored breathing, is not present, Breath sounds: bronchial sounds, that are mild, are heard diffusely, stridor, is not appreciated, wheezing: is not appreciated. 13:33 Abdomen/GI: Inspection: abdomen appears normal, Palpation: abdomen is soft and non-tender, in all quadrants. 13:33 Back: CVA tenderness, is absent. 13:33 Skin: cellulitis, is not appreciated, no rash present. 13:33 Neuro: Orientation: to person, place \\T\\ time. Mentation: is normal. 13:42 ECG was reviewed by the Attending Physician. cp Vital Signs: 13:16 BP 134 / 52; Pulse 77; Temp 98.6; Pulse Ox 96% ; tp1 15:13 BP 120 / 91; Pulse 77; Resp 17; Pulse Ox 95% ; bp 17:00 BP 125 / 90; Pulse 83; Resp 16; Pulse Ox 96% ; bp 19:00 BP 137 / 78; Pulse 81; Resp 17; Temp 98.5; Pulse Ox 95% ; bp MDM: 13:18 Patient medically screened. cp 14:00 Differential Diagnosis: Bronchitis Influenza Viral Syndrome Pneumonia Other acute [place], cp pulmonary embolism, CHF, COPD, COVID-19, pneumonia. 18:15 Data reviewed: vital signs, nurses notes, lab test result(s), EKG, radiologic studies, cp CT scan, plain films. 18:15 Test interpretation: by ED physician or midlevel provider: ECG, plain radiologic cp studies. Counseling: I had a detailed discussion with the patient and/or guardian regarding: the historical points, exam findings, and any diagnostic results supporting the discharge/admit diagnosis, lab results, radiology results, to return to the emergency department if symptoms worsen or persist or if there are any questions or concerns that arise at home. Response to treatment: the patient's symptoms have mildly improved after treatment, VSS, Patient appears non-toxic and no signs of respiratory distress. Will discharge to home for continued monitoring. 08/30 13:18 Order name: Basic Metabolic Panel; Complete Time: 14:36 cp 08/30 15:23 Interpretation: Normal except: GFR 65. cp 08/30 13:18 Order name: CBC with Diff; Complete Time: 14:30 cp 08/30 14:30 Interpretation: Normal except: RBC 3.51; HGB 11.4; HCT 33.1; KATIE% 78.1; LYM% 8.9; NEUT cp A 8.3. 08/30 13:18 Order name: LFT's; Complete Time: 14:36 cp 08/30 13:18 Order name: Magnesium; Complete Time: 14:36 cp 08/30 13:18 Order name: NT PRO-BNP; Complete Time: 14:36 cp 08/30 15:23 Interpretation: Abnormal: NT PRO-BNP 1458. cp 08/30 13:18 Order name: PT-INR; Complete Time: 14:30 cp 08/30 13:18 Order name: Troponin HS; Complete Time: 14:36 cp 08/30 13:18 Order name: XRAY Chest (1 view); Complete Time: 14:30 cp 08/30 14:37 Order name: CT Chest For PE Angio; Complete Time: 15:22 cp 08/30 16:02 Order name: COVID-19/FLU A+B (Document "Date of Onset" if Symptomatic); Complete Time: cp 18:13 08/30 17:03 Order name: Troponin HS; Complete Time: 18:13 cp 08/30 13:18 Order name: EKG; Complete Time: 13:18 cp 08/30 13:18 Order name: Cardiac monitoring; Complete Time: 14:04 cp 08/30 13:18 Order name: EKG - Nurse/Tech; Complete Time: 14:04 cp 08/30 13:18 Order name: IV Saline Lock; Complete Time: 14:04 cp 08/30 13:18 Order name: Labs collected and sent; Complete Time: 14: cp 08/30 13:18 Order name: O2 Per Protocol; Complete Time: 13: cp 08/30 13:18 Order name: O2 Sat Monitoring; Complete Time: 13:22 cp EC:42 Rate is 70 beats/min. Rhythm is regular. IL interval is normal. QRS interval is cp prolonged at 140 msec. QT interval is normal. T waves are Inverted in leads V2, V3. Interpreted by me. Reviewed by me. Administered Medications: 13:25 Drug: Aspirin Chewable Tablet 324 mg Route: PO; bp 15:18 Follow up: Response: No adverse reaction bp 13:25 Drug: Zofran (Ondansetron) 4 mg Route: IVP; Site: right antecubital; bp 15:18 Follow up: Response: No adverse reaction bp 13:25 Drug: Pepcid (famotidine) 20 mg Route: IVP; Site: right antecubital; bp 15:18 Follow up: Response: No adverse reaction bp 14:00 Drug: morphine 4 mg Route: IVP; Site: right antecubital; bp 15:18 Follow up: Response: Pain is decreased bp 16:20 Drug: SOLU-Medrol (methylPrednisoLONE) 125 mg Route: IVP; Site: right antecubital; bp 16:54 Follow up: Response: No adverse reaction bp 16:20 Drug: Albuterol - atroVENT (ipratropium) (3:1) (2.5 mg - 0.5 mg) 3 ml Route: Nebulizer; bp 16:54 Follow up: Response: Marked relief of symptoms bp 16:56 Drug: Tessalon Perle (benzonatate) 200 mg Route: PO; bp 16:56 Follow up: Response: No adverse reaction bp 18:00 Drug: Tussionex Pennkinetic ER (chlorpheniramine-hydrocodone) Suspension 5 ml Route: PO;bp 19:12 Follow up: Response: No adverse reaction bp Disposition Summary: 08/30/21 18:15 Discharge Ordered Location: Home cp Problem: new cp Symptoms: have improved cp Condition: Stable cp Diagnosis - Chest pain, unspecified cp - Acute bronchitis, unspecified cp Followup: cp - With: Private Physician - When: 2 - 3 days - Reason: Recheck today's complaints Discharge Instructions: - Discharge Summary Sheet cp - Acute Bronchitis, Adult cp - Nonspecific Chest Pain, Adult cp - Aspirin and Your Heart cp Forms: - Medication Reconciliation Form cp - Thank You Letter cp - Antibiotic Education cp - Prescription Opioid Use cp Prescriptions: - Bromfed DM 2-30-10 mg/5 mL Oral syrup - take 10 milliliter by ORAL route every 6 hours; 180 milliliter; Refills: 0, cp Product Selection Permitted - albuterol sulfate 90 mcg/actuation Inhalation HFA aerosol inhaler - inhale 1 puff by INHALATION route every 6 hours; 1 Inhaler; Refills: 0, Product cp Selection Permitted - Zithromax Z-Vicente 250 mg Oral Tablet - take 1 tablet by ORAL route as directed for 5 days Day 1 - take two (2) tablets cp one time. Day 2, 3, 4 , 5 take one (1) tablet once daily.; 6 tablet; Refills: 0, Product Selection Permitted - Prednisone 20 mg Oral Tablet - take 2 tablets by ORAL route once daily for 5 days; 10 tablet; Refills: 0, cp Product Selection Permitted Addendum: 09/02/2021 19:25 Co-signature as Attending Physician, Bk Dennis MD. r n Signatures: Dispatcher [employer] EDBk Lovett MD MD rn Page, Corey, PA PA Car Hutchinson, RN RN bp
[2021-08-30 19:21] VITALS: BP 137/78; TEMP 98.5; O2SAT 95
--- NOTE | 2021-09-02 09:30 | EKG ---
Test Date: 2021-08-30 Test Time: 13:35:56 Court Bailiff Or Sheriff: BP MEASUREMENT RESULTS: Intervals: Rate: 70 DE: 174 QRSD: 140 QT: 424 QTc: 457 [place]: P: 60 DE: 174 QRS: 37 T: 25 INTERPRETIVE STATEMENTS: Normal sinus rhythm Right bundle branch block Abnormal ECG Compared to ECG 06/03/2019 18:05:38 No significant changes Electronically Signed On 09-02-21 09:26:10 CDT by Julien Antony
== END 2021-08-30 19:12 | disposition home or self-care (01) ==
LOC: ER 13:07
DX: J20.9 Acute bronchitis, unspecified (principal); R05.9 Cough, unspecified; I10 Essential (primary) hypertension; G82.20 Paraplegia, unspecified; E78.00 Pure hypercholesterolemia, unspecified; K21.9 Gastro-esophageal reflux disease without esophagitis; Z20.822 Contact with and (suspected) exposure to COVID-19; Z88.0 Allergy status to penicillin
CPT/HCPCS: 93005; 85025; 80048; 36415; 83735; 85610; 80076; 84484 ×2; 83880; 0240U; 71275; 71045; 94640; 96375; 96374; 99284; Q9967; J2930; J2405

== ENCOUNTER 2021-09-01 02:38 | Emergency (ER) | payer OTHER ==
--- NOTE | 2021-09-01 06:55 | EDPHYS ---
Physician Documentation [facility] Name: Giuliano Leyva Age: 65 yrs Sex: Male : 1955 Arrival Date: 09/01/2021 Time: 02:44 Bed 19 Private MD: ED Physician Ray Kulkarni HPI: 09/01 04:30 This 65 yrs old Male presents to ER via EMS with complaints of Fall.. mh7 04:30 Details of fall: The patient fell from seated position, while transferring, and struck [facility] a tile surface. 04:30 Onset: The symptoms/episode began/occurred today. mh7 04:30 Associated injuries: The patient sustained left leg and left knee, painful injury. mh7 Severity of symptoms: At their worst the symptoms were moderate, earlier today, in the emergency department the symptoms have improved, moderately. Historical: - Allergies: 02:46 PENICILLINS; sm5 - Home Meds: 02:46 losartan Oral [Active]; Lovastatin Oral [Active]; Pepcid Oral [Active]; vicodin 10 mg sm5 Q6H PRN [Active]; - PMHx: 02:46 GERD; High Cholesterol; Hypertension; Paraplegia; sm5 - Immunization history:: Client reports receiving the 2nd dose of the Covid vaccine, Flu vaccine is up to date. - Social history:: Smoking status: Patient/guardian denies using tobacco, but has a distant history of tobacco abuse. ROS: 04:30 Constitutional: Negative for fever, chills, and weight loss, Eyes: Negative for injury, mh7 pain, redness, and discharge, ENT: Negative for injury, pain, and discharge, Neck: Negative for injury, pain, and swelling, Cardiovascular: Negative for chest pain, palpitations, and edema, Respiratory: Negative for shortness of breath, cough, wheezing, and pleuritic chest pain, Abdomen/GI: Negative for abdominal pain, nausea, vomiting, diarrhea, and constipation, Back: Negative for injury and pain, : Negative for injury, bleeding, discharge, and swelling, Skin: Negative for injury, rash, and discoloration, Neuro: Negative for headache, weakness, numbness, tingling, and seizure, Psych: Negative for depression, anxiety, suicide ideation, homicidal ideation, and hallucinations, Allergy/Immunology: Negative for hives, rash, and allergies, Endocrine: Negative for neck swelling, polydipsia, polyuria, polyphagia, and marked weight changes, Hematologic/Lymphatic: Negative for swollen nodes, abnormal bleeding, and unusual bruising. Exam: 04:30 Constitutional: This is a well developed, well nourished patient who is awake, alert, mh7 and in no acute distress. Head/Face: Normocephalic, atraumatic. Eyes: Pupils equal round and reactive to light, extra-ocular motions intact. Lids and lashes normal. Conjunctiva and sclera are non-icteric and not injected. Cornea within normal limits. Periorbital areas with no swelling, redness, or edema. Neck: Trachea midline, no thyromegaly or masses palpated, and no cervical lymphadenopathy. Supple, full range of motion without nuchal rigidity, or vertebral point tenderness. No Meningismus. Chest/axilla: Normal chest wall appearance and motion. Nontender with no deformity. No lesions are appreciated. Cardiovascular: Regular rate and rhythm with a normal S1 and S2. No gallops, murmurs, or rubs. Normal PMI, no JVD. No pulse deficits. Respiratory: Lungs have equal breath sounds bilaterally, clear to auscultation and percussion. No rales, rhonchi or wheezes noted. No increased work of breathing, no retractions or nasal flaring. Abdomen/GI: Soft, non-tender, with normal bowel sounds. No distension or tympany. No guarding or rebound. No evidence of tenderness throughout. Back: No spinal tenderness. No costovertebral tenderness. Full range of motion. 04:30 Psych: Awake, alert, with orientation to person, place and time. Behavior, mood, and affect are within normal limits. 04:30 Musculoskeletal/extremity: Extremities: noted in the left leg and left knee: abrasion, contusion, ROM: the patient is contracted, paraplegia, baseline, Circulation is intact in all extremities. Sensation intact. Joints: the left knee displays contusion, paraplegia, baseline. 04:30 Skin: injury, abrasion(s), small abrasion noted, of the left leg and left knee, contusion(s), that are superficial, of the left leg and left knee. 04:30 Neuro: Orientation: is normal, Mentation: is normal, Memory: is normal, Cranial nerves: grossly normal, Cerebellar function: is grossly normal, Motor: paraplegia, bilateral, seizure activity, is not displayed by the patient, Abnormal movements: there are no abnormal movements. Vital Signs: 02:44 BP 187 / 86; Pulse 71; Resp 18; Temp 97.9(TE); Pulse Ox 96% on R/A; Weight 113.4 kg; 5 Height 6 ft. 1 in. (185.42 cm); Pain 7/10; 06:59 BP 162 / 85; Pulse 78; Resp 19; Pulse Ox 100% on R/A; sm5 02:44 Body Mass Index 32.98 (113.40 kg, 185.42 cm) 5 MDM: 06:51 Differential diagnosis: abrasion, contusion, fracture, sprain, strain. Data reviewed: [facility] vital signs, nurses notes, radiologic studies, plain films. Data interpreted: Pulse oximetry: on room air is 96 %. Interpretation: normal. Counseling: I had a detailed discussion with the patient and/or guardian regarding: the historical points, exam findings, and any diagnostic results supporting the discharge/admit diagnosis, the presence of at least one elevated blood pressure reading (>120/80) during this emergency department visit, radiology results, the need for outpatient follow up, to return to the emergency department if symptoms worsen or persist or if there are any questions or concerns that arise at home. Response to treatment: the patient's symptoms have markedly improved after treatment. 06:53 Patient medically screened. [facility] 09/01 04:28 Order name: XRAY Knee LEFT 3 view 5 09/01 04:28 Order name: XRAY Tib Fib LEFT 5 Administered Medications: 05:16 CANCELLED (Physician Discretion): Abiquiu (HYDROcodone-acetaminophen) 5 mg-325 mg 1 tabs sm5 PO once; RASS on ADMIN: Combtv4, Very Agttd3, Agttd2, Rstlss1, AlertClm0, Drwsy-1, Lt Sdtn-2, Mod Sdtn-3, Dp Sdtn-4, UnArsble-5 Disposition Summary: 09/01/21 06:53 Discharge Ordered Location: Home [facility] Problem: new [facility] Symptoms: have improved [facility] Condition: Stable [facility] Diagnosis - Contusion, Left knee and leg [facility] Followup: [facility] - With: Private Physician - When: 1 - 2 days - Reason: Worsening of condition, Recheck today's complaints, Continuance of care, Re-evaluation by your physician Followup: [facility] - With: Teo Naqvi MD - When: 1 - 2 days - Reason: Worsening of condition, Recheck today's complaints Discharge Instructions: - Discharge Summary Sheet [facility] - Contusion, [id number] [facility] - Acute Knee Pain, Adult, [id number] [facility] Forms: - Medication Reconciliation Form [facility] - Thank You Letter [facility] - Antibiotic Education [facility] - Prescription Opioid Use [facility] Signatures: Dispatcher [employer] EDRay Branch MD MD 7 Rachel Nielson RN RN 5 Corrections: (The following items were deleted from the chart) 05:16 05:15 Abiquiu (HYDROcodone-acetaminophen) 5 mg-325 mg 1 tabs PO once; RASS on ADMIN: sm5 Combtv4, Very Agttd3, Agttd2, Rstlss1, AlertClm0, Drwsy-1, Lt Sdtn-2, Mod Sdtn-3, Dp Sdtn-4, UnArsble-5 ordered. [facility]
--- NOTE | 2021-09-01 06:55 | ER ---
Nurse's Notes [facility] Name: Giuliano Leyva Age: 65 yrs Sex: Male : 1955 Arrival Date: 09/01/2021 Time: 02:44 Bed 19 Private MD: Diagnosis: Contusion, Left knee and leg Presentation: 09/01 02:44 Chief complaint: EMS states: pt was transferring from bed to wheelchair and he fell on sm5 his left leg and bent it backwards. states his left leg is rotated out more than normal. complaining of knee pain. Coronavirus screen: Vaccine status: Patient reports receiving the 2nd dose of the covid vaccine. Ebola Screen: No symptoms or risks identified at this time. Initial Sepsis Screen: Does the patient meet any 2 criteria? No. Patient's initial sepsis screen is negative. Does the patient have a suspected source of infection? No. Patient's initial sepsis screen is negative. Risk Assessment: Do you want to hurt yourself or someone else? Patient reports no desire to harm self or others. Onset of symptoms was September 01, 2021. 02:44 Method Of Arrival: EMS: [facility] 02:44 Acuity: MISAEL 4 sm5 Triage Assessment: 02:46 General: Appears in no apparent distress. Behavior is cooperative. Pain: Complains of sm5 pain in left knee. Neuro: No deficits noted. Level of Consciousness is awake, alert, obeys commands, Oriented to person, place, time, situation. Cardiovascular: No deficits noted. Capillary refill < 3 seconds Patient's skin is warm and dry. GI: Reports nausea, vomiting. Musculoskeletal: Reports pain in left knee. Historical: - Allergies: 02:46 PENICILLINS; sm5 - Home Meds: 02:46 losartan Oral [Active]; Lovastatin Oral [Active]; Pepcid Oral [Active]; vicodin 10 mg sm5 Q6H PRN [Active]; - PMHx: 02:46 GERD; High Cholesterol; Hypertension; Paraplegia; sm5 - Immunization history:: Client reports receiving the 2nd dose of the Covid vaccine, Flu vaccine is up to date. - Social history:: Smoking status: Patient/guardian denies using tobacco, but has a distant history of tobacco abuse. Screenin:48 Abuse screen: Denies threats or abuse. Denies injuries from another. Nutritional sm5 screening: No deficits noted. Tuberculosis screening: No symptoms or risk factors identified. Fall Risk Fall in past 12 months (25 points). Secondary diagnosis (15 points) impaired mobility, No IV (0 pts). Ambulatory Aid- None/Bed Rest/Nurse Assist (0 pts). Gait- Normal/Bed Rest/Wheelchair (0 pts) Mental Status- Oriented to own ability (0 pts). Total Smith Fall Scale indicates Low Risk Score (25-44 pts). Fall prevention measures have been instituted. Side Rails Up X 2 Placed close to Nursing Station Frequent Obs/Assesments occuring As available Patient and Family Educated on Fall Prevention Program and strategies. Assessment: 03:03 Reassessment: pt asking to be straight cathed since he caths himself at home. pt sm5 straight cathed and tolerated well. 03:26 Reassessment: pt took his own hydrocodone. sm5 06:41 Reassessment: Patient and/or family updated on plan of care and expected duration. Pain sm5 level reassessed. Vital Signs: 02:44 BP 187 / 86; Pulse 71; Resp 18; Temp 97.9(TE); Pulse Ox 96% on R/A; Weight 113.4 kg; sm5 Height 6 ft. 1 in. (185.42 cm); Pain 7/10; 06:59 BP 162 / 85; Pulse 78; Resp 19; Pulse Ox 100% on R/A; sm5 02:44 Body Mass Index 32.98 (113.40 kg, 185.42 cm) sm5 ED Course: 02:44 Patient arrived in ED. sm5 02:45 Triage completed. sm5 02:48 Arm band placed on right wrist. sm5 02:49 Rachel Nielson, HAYDEN is Primary Nurse. sm5 02:49 Patient has correct armband on for positive identification. Placed in gown. Bed in low sm5 position. Side rails up X2. 03:03 Straight cath inserted, using sterile technique, 16 Fr. Returned clear yellow urine. sm5 Patient tolerated well. 03:58 Ray Kulkarni MD is Attending Physician. 7 05:50 XRAY Knee LEFT 3 view In Process Unspecified. EDMS 05:50 XRAY Tib Fib LEFT In Process Unspecified. EDMS 06:52 Teo Naqvi MD is Referral Physician. [facility] 07:00 No provider procedures requiring assistance completed. Patient did not have IV access [facility] during this emergency room visit. Administered Medications: 05:16 CANCELLED (Physician Discretion): Tyler (HYDROcodone-acetaminophen) 5 mg-325 mg 1 tabs sm5 PO once; RASS on ADMIN: Combtv4, Very Agttd3, Agttd2, Rstlss1, AlertClm0, Drwsy-1, Lt Sdtn-2, Mod Sdtn-3, Dp Sdtn-4, UnArsble-5 Outcome: 06:53 Discharge ordered by . [facility] 07:00 Discharged to home via ambulance. [facility] 07:00 Condition: stable 07:00 Discharge instructions given to patient, Instructed on discharge instructions, follow up and referral plans. Demonstrated understanding of instructions, follow-up care. 07:00 Patient left the ED. [facility] Signatures: Dispatcher [employer] Ray Calloway MD MD [facility] Rachel Nielson, RN RN [facility]
[2021-09-01 07:06] VITALS: TEMP 97.9
[2021-09-01 07:07] VITALS: BP 162/85; O2SAT 100
--- NOTE | 2021-09-01 21:51 | RAD REPORT ---
EXAM DESCRIPTION: RAD - Tib Fib Left - 09/01/2021 5:48 am CLINICAL HISTORY: The patient is 65 years old and is Male; fall TECHNIQUE: Two views of the left tibia and fibula. COMPARISON: No relevant prior studies available. FINDINGS: Bones/joints: Diffuse bone demineralization. Severe degenerative changes in the left knee. No acute fracture. No dislocation. Soft tissues: Unremarkable. No radiopaque foreign body. IMPRESSION: No acute fracture. Electronically signed by: Brittany Fenton MD 09/01/2021 6:18 AM CDT Due to temporary technical issues with the PACS/Fluency reporting system, reports are being signed by the in house radiologists without review as a courtesy to insure prompt reporting. The interpreting radiologist is fully responsible for the content of the report. Farhana quiros cc
--- NOTE | 2021-09-01 21:57 | RAD REPORT ---
EXAM DESCRIPTION: RAD - Knee Left 3 View - 09/01/2021 5:48 am CLINICAL HISTORY: The patient is 65 years old and is Male; fall TECHNIQUE: Three views of the left knee. COMPARISON: No relevant prior studies available. FINDINGS: Bones/joints: Severe tricompartmental degenerative changes. No definite acute fracture v isualized. No effusion. Old fractures in the distal femur and proximal tibia. No dislocation. Soft tissues: Unremarkable. IMPRESSION: Severe tricompartmental degenerative changes. No definite acute fracture visualized. Electronically signed by: Brittany Fenton MD 09/01/2021 6:16 AM CDT Due to temporary technical issues with the PACS/Fluency reporting system, reports are being signed by the in house radiologists without review as a courtesy to insure prompt reporting. The interpreting radiologist is fully responsible for the content of the report.
== END 2021-09-01 07:00 | disposition home or self-care (01) ==
LOC: ER 02:38
DX: S80.02XA Contusion of left knee, initial encounter (principal); S80.12XA Contusion of left lower leg, initial encounter; W06.XXXA Fall from bed, initial encounter; Y93.89 Activity, other specified; Y92.013 Bedroom of single-family (private) house as the place of occurrence of the external cause
CPT/HCPCS: 51702; 99283

== ENCOUNTER 2021-09-03 14:49 | Inpatient (IN) | payer OTHER ==
[2021-09-03] MEDS ORDERED: NA CHLORIDE 0.9% 1,000 ML ONE (14:56)
[2021-09-03 15:49] LABS: Absolute Lymphocytes (CBC) 1.6 K/uL (0.7-4.9); Hematocrit 31.8 % (39.6-49.0); Lymphocytes % 6.2 % (15.3-44.8); MPV 8.3 fL (7.6-11.3); RBC Red Blood Cell Count 3.31 M/uL (4.33-5.43)
[2021-09-03 16:15] LABS: Urine Blood 2+ (Negative); Urine Glucose Negative (Negative); Urine Protein 2+ (Negative)
--- NOTE | 2021-09-03 16:19 | RAD REPORT ---
EXAM DESCRIPTION: RAD - Chest Single View - 09/03/2021 4:13 pm CLINICAL HISTORY: CHEST PAIN Chest pain. COMPARISON: Chest Single View dated 08/30/2021; Chest Single View dated 06/03/2019; Chest Single View dated 08/07/2016; Chest Single View dated 01/14/2016 FINDINGS: Portable technique limits examination quality. Moderate bilateral pulmonary opacities are present, essentially unchanged since comparative study. Th is likely represents pulmonary edema or infection/ pneumonia. The heart is mildly enlarged in size. N o displaced fractures.
[2021-09-03 16:23] LABS: Troponin High Sensitivity 4.4 pg/mL (<58.9)
[2021-09-03 16:25] LABS: Potassium 3.7 mmol/L (3.5-5.1)
[2021-09-03 16:33] LABS: SARS-COV-2 RT PCR NEGATIVE (NEGATIVE)
[2021-09-03 16:35] LABS: Urine Bacteria LOADED /HPF (NONE SEEN)
[2021-09-03] MEDS ORDERED: NA CHLORIDE 0.9% 2,000 ML ONE (16:47)
[2021-09-03] MEDS ORDERED: Levofloxacin 750mg IV 750 MG/150 ML BAG IV ONE (16:54)
--- NOTE | 2021-09-03 16:54 | ER ---
Nurse's Notes [facility] Name: Giuliano Leyva Age: 65 yrs Sex: Male : 1955 Arrival Date: 09/03/2021 Time: 14:51 Bed 15 Private MD: Diagnosis: Severe sepsis with septic shock;Other pneumonia, unspecified organism;UTI/ Urinary tract infection, site not specified Presentation: 09/03 14:40 Chief complaint: EMS states: Patient was seen here a couple days ago and diagnosed with jg9 bronchitis, patient prescribed some medication but it's not helping and he is having continued sob with SpO2 of 98% on room air. Patient also c/o generalized weakness, patient blood pressure 70's systolic in ED per EMS blood pressure was 130's systolic at home. Coronavirus screen: Vaccine status:. Ebola Screen: Patient negative for fever greater than or equal to 101.5 degrees Fahrenheit, and additional compatible Ebola Virus Disease symptoms Patient denies exposure to infectious person. Patient denies travel to an Ebola-affected area in the 21 days before illness onset. Initial Sepsis Screen: Does the patient meet any 2 criteria? Systolic BP < 90 mmHg. Does the patient have a suspected source of infection? No. Patient's initial sepsis screen is negative. Risk Assessment: Do you want to hurt yourself or someone else? Patient reports no desire to harm self or others. Onset of symptoms is unknown. 14:40 Method Of Arrival: EMS: [facility] 9 14:40 Acuity: MISAEL 3 jg9 Triage Assessment: 14:40 General: Appears in no apparent distress. Behavior is calm, cooperative. Pain: 9 Complains of pain in chest-acute onset and right leg-right hip chronic. Historical: - Allergies: 15:11 PENICILLINS; jg9 - Home Meds: 15:11 losartan Oral [Active]; Lovastatin Oral [Active]; Pepcid Oral [Active]; vicodin 10 mg jg9 Q6H PRN [Active]; - PMHx: 15:11 GERD; High Cholesterol; Hypertension; Paraplegia; jg9 - Immunization history:: Adult Immunizations up to date. - Social history:: Smoking status: Patient/guardian denies using tobacco, the patient reports quitting approximately 15 years ago. Screenin:13 Abuse screen: Denies threats or abuse. Denies injuries from another. Nutritional jg9 screening: No deficits noted. Tuberculosis screening: No symptoms or risk factors identified. Fall Risk Fall in past 12 months (25 points). Secondary diagnosis (15 points) impaired mobility, IV access (20 points). Assessment: 19:36 Reassessment: Report called and given to ICU nurse. ke1 Vital Signs: 14:40 BP 68 / 52 LA; Pulse 72; Resp 18; Temp 97.9; Pulse Ox 97% on R/A; Weight 113.4 kg; jg9 Height 6 ft. 0 in. (182.88 cm) (R); Pain 6/10; 14:45 BP 72 / 40; Pulse 98; Resp 22 S; Pulse Ox 95% on R/A; jg9 15:00 BP 77 / 60; Pulse 100; Resp 20 S; Pulse Ox 92% on R/A; jg9 15:15 BP 79 / 48; Pulse 89; Resp 19 S; Pulse Ox 99% on R/A; jg9 15:30 BP 89 / 55; Pulse 90; Resp 19 S; Pulse Ox 100% on R/A; jg9 15:45 BP 100 / 59; Pulse 84; Resp 12 S; Pulse Ox 100% on R/A; jg9 16:00 BP 96 / 53; Pulse 79; Resp 14 S; Pulse Ox 100% on R/A; jg9 16:15 BP 95 / 57; Pulse 80; Resp 13 S; Pulse Ox 99% on R/A; jg9 16:30 BP 87 / 55; Pulse 84; Resp 19; Pulse Ox 98% on R/A; jg9 16:45 BP 107 / 61; Pulse 84; Resp 18; Pulse Ox 99% ; jg9 17:00 BP 106 / 64; Pulse 88; Resp 16 S; Pulse Ox 95% on R/A; jg9 19:52 BP 93 / 57; Pulse 90; Resp 18; Pulse Ox 95% on R/A; ke1 14:40 Body Mass Index 33.91 (113.40 kg, 182.88 cm) jg9 ED Course: 14:50 Inserted saline lock: 20 gauge in right antecubital area, using aseptic technique. jg9 14:51 Patient arrived in ED. jg9 14:54 Kidd, Joao, DO is Attending Physician. ms3 15:06 Ginny Shields, RN is Primary Nurse. jg9 15:11 Triage completed. jg9 15:13 Arm band placed on right wrist. jg9 15:13 Patient has correct armband on for positive identification. Bed in low position. Call jg9 light in reach. Side rails up X 1. 15:55 Inserted saline lock: 22 gauge in right hand, using aseptic technique. Blood collected. jg9 16:00 Velasquez cath inserted, using sterile technique, 16 Fr., by oh, balloon inflated, returned jg9 seth urine. Patient tolerated well. 16:15 XRAY Chest (1 view) In Process Unspecified. EDMS 16:52 Boris Dennis MD is Hospitalizing Provider. ms3 19:16 Attending Physician role handed off by Joao Kidd DO juany 19:16 Eulalio Eaton MD is Attending Physician. [facility] 19:19 Primary Nurse role handed off by Ginny Shields, HAYDEN 2 19:20 Kedar Campos RN is Primary Nurse. ke1 19:36 No provider procedures requiring assistance completed. Patient admitted, IV remains in ke1 place. Administered Medications: 15:00 Drug: NS 0.9% 1000 ml {Note: patient bp low, awaiting provider orders, starting liter jg9 bolus.} Route: IV; Rate: 1 bolus; Site: right antecubital; 17:24 Follow up: IV Status: Completed infusion; IV Intake: 1000ml jg9 16:41 Not Given (order changedd): LevaQUIN (levofloxacin) 750 mg 150 ml IVPB once over 90 minsms3 16:43 Drug: NS 0.9% 2000 ml Route: IV; Rate: bolus; Site: right antecubital; jg9 19:09 Follow up: Rate change bolus; IV Status: Completed infusion; IV Intake: 1000ml ke1 16:46 Not Given (Duplicate Order): NS 0.9% 1000 ml IV at 1000 ml once jg9 17:00 Drug: LevaQUIN (levofloxacin) 750 mg Volume: 150 ml; Route: IVPB; Infused Over: 90 jg9 mins; Site: right antecubital; 19:09 Follow up: IV Status: Completed infusion; IV Intake: 150ml ke1 18:46 Drug: vancoMYCIN 2 grams Route: IVPB; Rate: calculated rate; Site: right hand; jg9 Intake: 17:24 IV: 1000ml; Total: 1000ml. jg9 19:09 IV: 150ml; Total: 1150ml. ke1 19:09 IV: 1000ml; Total: 2150ml. ke1 Outcome: 16:53 Decision to Hospitalize by Provider. ms3 19:37 Admitted to ICU accompanied by nurse. ke1 19:37 Condition: stable 19:37 Instructed on the need for admit. 21:12 Patient left the ED. vc1 Signatures: Dispatcher [employer] EDMS Eulalio Eaton MD MD cha [place], MyKena mw2 Joao Kidd DO DO ms3 Ginny Shields RN RN jg9 Hailey Alas RN RN vc1 Kedar Campos RN RN ke1 Corrections: (The following items were deleted from the chart) 17:08 16:15 NS 0.9% 1000 ml IV at 1 bolus in right antecubital jg9 jg9
--- NOTE | 2021-09-03 16:54 | EDPHYS ---
Physician Documentation [facility] Name: Giuliano Leyva Age: 65 yrs Sex: Male : 1955 Arrival Date: 09/03/2021 Time: 14:51 Bed 15 Private MD: ED Physician Eulalio Eaton HPI: 09/03 14:56 This 65 yrs old Male presents to ER via EMS with complaints of General Weakness. ms3 14:56 Patient states he was recently seen in the ED and dx with bronchitis. Patient states he ms3 is having some moderate chest pain. Patient states he has gradually become worse and is weak. Patient denies alleviating or inciting factors. . Severity of symptoms: At their worst the symptoms were moderate in the emergency department the symptoms are unchanged. Historical: - Allergies: 15:11 PENICILLINS; jg9 - Home Meds: 15:11 losartan Oral [Active]; Lovastatin Oral [Active]; Pepcid Oral [Active]; vicodin 10 mg jg9 Q6H PRN [Active]; - PMHx: 15:11 GERD; High Cholesterol; Hypertension; Paraplegia; jg9 - Immunization history:: Adult Immunizations up to date. - Social history:: Smoking status: Patient/guardian denies using tobacco, the patient reports quitting approximately 15 years ago. ROS: 14:56 Constitutional: Negative for fever, and chills. ms3 14:56 Abdomen/GI: Negative for abdominal pain, nausea, vomiting, diarrhea, and constipation, MS/Extremity: Negative for injury and deformity, Skin: Negative for injury, rash, and discoloration. 14:56 Cardiovascular: Positive for chest pain. 14:56 Respiratory: Positive for shortness of breath. 14:56 All other systems are negative. Exam: 14:56 ECG was reviewed by the Attending Physician. ms3 14:56 Constitutional: This is a well developed, well nourished patient who is awake, alert, ms3 and in no acute distress. Head/Face: Normocephalic, atraumatic. Neck: Trachea midline, no cervical lymphadenopathy. Supple, full range of motion without nuchal rigidity, or vertebral point tenderness. No Meningismus. Cardiovascular: Regular rate and rhythm with a normal S1 and S2. No gallops, murmurs, or rubs. Normal PMI, no JVD. No pulse deficits. Respiratory: Lungs have equal breath sounds bilaterally, clear to auscultation and percussion. No rales, rhonchi or wheezes noted. No increased work of breathing, no retractions or nasal flaring. Abdomen/GI: Soft, non-tender, with normal bowel sounds. No distension or tympany. No guarding or rebound. No evidence of tenderness throughout. Back: No spinal tenderness. No costovertebral tenderness. Full range of motion. Skin: Warm, dry with normal turgor. Normal color with no rashes, no lesions, and no evidence of cellulitis. Psych: Awake, alert, with orientation to person, place and time. Behavior, mood, and affect are within normal limits. Vital Signs: 14:40 BP 68 / 52 LA; Pulse 72; Resp 18; Temp 97.9; Pulse Ox 97% on R/A; Weight 113.4 kg; jg9 Height 6 ft. 0 in. (182.88 cm) (R); Pain 6/10; 14:45 BP 72 / 40; Pulse 98; Resp 22 S; Pulse Ox 95% on R/A; jg9 15:00 BP 77 / 60; Pulse 100; Resp 20 S; Pulse Ox 92% on R/A; jg9 15:15 BP 79 / 48; Pulse 89; Resp 19 S; Pulse Ox 99% on R/A; jg9 15:30 BP 89 / 55; Pulse 90; Resp 19 S; Pulse Ox 100% on R/A; jg9 15:45 BP 100 / 59; Pulse 84; Resp 12 S; Pulse Ox 100% on R/A; jg9 16:00 BP 96 / 53; Pulse 79; Resp 14 S; Pulse Ox 100% on R/A; jg9 16:15 BP 95 / 57; Pulse 80; Resp 13 S; Pulse Ox 99% on R/A; jg9 16:30 BP 87 / 55; Pulse 84; Resp 19; Pulse Ox 98% on R/A; jg9 16:45 BP 107 / 61; Pulse 84; Resp 18; Pulse Ox 99% ; jg9 17:00 BP 106 / 64; Pulse 88; Resp 16 S; Pulse Ox 95% on R/A; jg9 19:52 BP 93 / 57; Pulse 90; Resp 18; Pulse Ox 95% on R/A; ke1 14:40 Body Mass Index 33.91 (113.40 kg, 182.88 cm) jg9 MDM: 14:56 Differential Diagnosis altered mental status, sepsis, flu. Data reviewed: vital signs, tx3 nurses notes, lab test result(s), radiologic studies. 15:30 Patient medically screened. ms3 16:31 ED course: Patient meets severe sepsis criteria at this time. A. Pneumonia B. HR >90, ms3 WBC >12k. C. SBP < 90 mm Hg x1. LA > 2. Patient LA ordered. Blood cultures ordered. Levaquin Ordered.. 16:38 ED course: Patient with additional SBP < 90. Patient meets septic shock at this time. ms3 Will give patient 3 L NS instead of 30 ml/kg due to concern for fluid overload.. 16:44 ED course: Sepsis re-evaluation complete. tx3 09/03 15:24 Order name: COVID-19/FLU A+B (Document "Date of Onset" if Symptomatic); Complete Time: 16:47 09/03 15:25 Order name: CBC with Diff 09/03 15:25 Order name: Troponin HS; Complete Time: 17:26 09/03 15:25 Order name: Blood Culture Adult (2) 09/03 15:25 Order name: Lactate; Complete Time: 16:28 09/03 15:31 Order name: Blood Culture Adult (2) [facility] [place] 09/03 15:31 Order name: Protime (+inr) [facility] 09/03 15:31 Order name: Ptt, Activated [facility] 09/03 15:31 Order name: Urine Microscopic Only; Complete Time: 16:47 [facility] 09/03 16:15 Order name: Urine Dipstick-Ancillary; Complete Time: 16:28 [facility] 09/03 16:37 Order name: Urine Culture [facility] 09/03 16:44 Order name: Comprehensive Metabolic Panel; Complete Time: 17:26 [facility] 09/03 15:25 Order name: XRAY Chest (1 view); Complete Time: 16:28 09/03 15:25 Order name: EKG; Complete Time: 15:26 09/03 15:25 Order name: Cardiac monitoring; Complete Time: 15:26 09/03 17:14 Order name: Diet Heart Healthy; Complete Time: 17:15 3 09/03 17:48 Order name: Chest Abdomen Pelvis Wo Con CT la1 09/03 18:27 Order name: Manual Differential EDMS 09/03 18:51 Order name: CT EDMS 09/03 19:05 Order name: Femur Left XRAY la1 09/03 20:09 Order name: RAD EDMS 09/03 20:39 Order name: Lactate Sepsis 2 HR Follow-up EDMS 09/03 15:25 Order name: EKG - Nurse/Tech; Complete Time: 15:26 ss 09/03 15:25 Order name: IV Saline Lock; Complete Time: 15:26 ss 09/03 15:25 Order name: Labs collected and sent; Complete Time: 15:26 ss 09/03 15:31 Order name: Accucheck; Complete Time: 16:36 ms3 09/03 15:31 Order name: IV Saline Lock - Large Bore; Complete Time: 16:07 ms3 EC:56 Rate is 99 beats/min. Rhythm is regular. ME interval is normal. Clinical impression: ms3 NSR with RBBB. Interpreted by me. Administered Medications: 15:00 Drug: NS 0.9% 1000 ml {Note: patient bp low, awaiting provider orders, starting liter jg9 bolus.} Route: IV; Rate: 1 bolus; Site: right antecubital; 17:24 Follow up: IV Status: Completed infusion; IV Intake: 1000ml jg9 16:41 Not Given (order changedd): LevaQUIN (levofloxacin) 750 mg 150 ml IVPB once over 90 minsms3 16:43 Drug: NS 0.9% 2000 ml Route: IV; Rate: bolus; Site: right antecubital; jg9 19:09 Follow up: Rate change bolus; IV Status: Completed infusion; IV Intake: 1000ml ke1 16:46 Not Given (Duplicate Order): NS 0.9% 1000 ml IV at 1000 ml once jg9 17:00 Drug: LevaQUIN (levofloxacin) 750 mg Volume: 150 ml; Route: IVPB; Infused Over: 90 jg9 mins; Site: right antecubital; 19:09 Follow up: IV Status: Completed infusion; IV Intake: 150ml ke1 18:46 Drug: vancoMYCIN 2 grams Route: IVPB; Rate: calculated rate; Site: right hand; jg9 Disposition Summary: 09/03/21 16:53 Hospitalization Ordered Hospitalization Status: Inpatient Admission ms3 Provider: Boris Dennis ms3 Condition: Stable ms3 Problem: new ms3 Symptoms: are unchanged ms3 Bed/Room Type: Standard ms3 Location: Intensive Care Unit(09/03/21 17:39) la1 Room Assignment: 6-(09/03/21 18:34) dw Diagnosis - Severe sepsis with septic shock ms3 - Other pneumonia, unspecified organism ms3 - UTI/ Urinary tract infection, site not specified ms3 Forms: - Medication Reconciliation Form ms3 - SBAR form ms3 Critical care time excluding procedures: 16:49 Critical care time: Bedside Care: 30 minutes, Consultation: 10 minutes. Total time: 40 ms3 minutes Signatures: Dispatcher [employer] EDMS Sharon Morse, RN HAYDEN dw Romi Argueta, RN RN ss Samson Payan, CLIENT INTEGRATION MANAGER-C CLIENT INTEGRATION MANAGER-Cla1 Joao Kidd, DO ms3 Ginny Shields RN RN jg9 Kedar Campos RN ke1 Corrections: (The following items were deleted from the chart) 16:44 15:26 BASIC METABOLIC PANEL+C.LAB.BRZ ordered. EDMS EDMS 16:44 15:32 COMPREHENSIVE METABOLIC PANEL+C.LAB.BRZ ordered. EDMS EDMS 16:44 16:28 BASIC METABOLIC PANEL+C.LAB.BRZ reviewed. ms3 EDMS 17:39 16:53 Telemetry/MedSurg (Inpatient) ms3 la1 17:39 16:53 ms3 la1 18:34 17:39 la1 dw
[2021-09-03 17:14] LABS: Protein, Total 7.1 g/dL (6.4-8.2)
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
[2021-09-03 18:27] LABS: Blood Morphology Comment NOT SEEN (NOT SEEN); Toxic Granulation 2+
[2021-09-03 18:29] LABS: Platelet Estimate ADEQ
--- NOTE | 2021-09-03 18:51 | RAD REPORT ---
EXAM DESCRIPTION: CT - Chest Abd Pelvis Wo Con - 09/03/2021 6:41 pm CLINICAL HISTORY: Chest and abdomen pain. septic shock, ARF, Acute hepatitis, abdominal pain/chest pa COMPARISON: Chest For Pe Angio dated 08/30/2021 TECHNIQUE: A limited noncontrast study was performed. All CT scans are performed using dose optimization technique as appropriate and may include automated exposure control or mA/KV adjustment according to patient size. FINDINGS: The lung mar appear emphysematous with areas of linear scarring in the left apex.No ple ural or pericardial effusion.No intrathoracic adenopathy. The liver appears normal size. 3.6 cm cyst is suspected anterior right lobe. No intra or extrahepatic biliary tree dilatation is seen. The spleen, pancreas and adrenal glands are normal. Left nephrectomy noted. Punctate calculi calices of the right kidney without hydronephrosis. No bowel obstruction, free air, free fluid or abscess. Nonvisualized appendix. Moderate stool retaine d throughout the colon to No pathologic lymphadenopathy in the abdomen or pelvis. There is evidence of an oblique fracture involving the proximal left femur. IMPRESSION: There is evidence of an oblique fracture of the proximal left femur. Moderate stool is retained throughout the colon. Tiny punctate right renal calculi without hydronephrosis.
[2021-09-03] MEDS ORDERED: VANCOMYCIN 2 GM in NA CHLORIDE 0.9% 500 ML IV ONE (19:00)
--- NOTE | 2021-09-03 20:07 | RAD REPORT ---
EXAM DESCRIPTION: RAD - Femur Left - 09/03/2021 7:49 pm CLINICAL HISTORY: fall COMPARISON: No comparisons FINDINGS: Diffuse osteopenia is seen. Oblique fracture seen of the proximal left femur.
[2021-09-03 20:25] LABS: Protime INR 3.34
[2021-09-03] MEDS ORDERED: VANCOMYCIN 1 GM in NA CHLORIDE 0.9% 250 ML IVPB SCH (21:07)
[2021-09-03] MEDS ORDERED: ONDANSETRON 4 MG/2 ML VIAL IV PRN (21:07)
[2021-09-03] MEDS ORDERED: Levofloxacin500mg IV 500 MG/100 ML BAG IV SCH (22:00)
[2021-09-03] MEDS: NA CHLORIDE 0.9% 1,000 ML IV SCH (22:26)
[2021-09-03] MEDS: FAMOTIDINE 20 MG/2 ML VIAL IV SCH (22:27)
[2021-09-03] MEDS: GABAPENTIN 300 MG CAP PO SCH (22:27)
[2021-09-03] MEDS: HEPARIN 5000 UNIT/ML 1 ML VIAL SQ SCH (22:28)
[2021-09-03] MEDS: HYDROCODONE/APAP 10/325 TAB PO PRN (22:28)
[2021-09-03 23:20] LABS: UR SODIUM < 15 mmol/L (27-287)
[2021-09-03 23:29] LABS: UR PROTEIN 108.9 mg/dL (<11.9); Urine Protein/Creatinine Ratio 1.4 ratio (<0.15)
[2021-09-03 23:47] LABS: Urine Appearance Cloudy (Clear); Urine Bilirubin Negative (Negative); Urine Blood 2+ (Negative); Urine Color Yellow (Yellow); Urine Glucose Negative (Negative); Urine Protein 2+ (Negative); Urine Specific Gravity 1.015 (1.005-1.030)
[2021-09-03 23:48] LABS: Urine Microscopic Reflex ORDER UMIC
[2021-09-04 00:15] LABS: Urine Bacteria 20-50 /HPF (NONE SEEN); Urine Mucus SLIGHT /HPF (NONE SEEN); Urine RBC <5 /HPF (NONE SEEN)
[2021-09-04 00:16] LABS: Urine Urothelial Cells <5 /HPF (NONE SEEN)
[2021-09-04 00:17] VITALS: BMI 32.5
[2021-09-04 04:49] LABS: Absolute Lymphocytes (CBC) 0.9 K/uL (0.7-4.9); Hematocrit 25.4 % (39.6-49.0); MPV 7.7 fL (7.6-11.3); RBC Red Blood Cell Count 2.65 M/uL (4.33-5.43)
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
[2021-09-04 06:45] LABS: Albumin 2.2 g/dL (3.4-5.0); Alkaline Phosphatase 163 U/L (45-117); BUN Blood Urea Nitrogen 61 mg/dL (7-18); Bicarbonate 20 mmol/L (21-32); Bilirubin Total 1.5 mg/dL (0.2-1.0); Glucose Level 120 mg/dL (74-106); HDL Cholesterol 27 mg/dL (40-60); Magnesium 2.5 mg/dL (1.8-2.4); Phosphorus 2.8 mg/dL (2.5-4.9); Potassium 3.6 mmol/L (3.5-5.1); Protein, Total 5.3 g/dL (6.4-8.2); Sodium Level 142 mmol/L (136-145); Thyroid Stimulating Hormone 0.094 uIU/mL (0.360-3.740); Uric Acid 15.3 mg/dL (3.5-7.2)
[2021-09-04 06:51] LABS: LDL Cholesterol, Calculated 14 (<130)
[2021-09-04 06:53] LABS: ALT/SGPT 3341 U/L (12-78); AST/SGOT 6432 U/L (15-37)
--- NOTE | 2021-09-04 07:32 | RAD REPORT ---
EXAM DESCRIPTION: US - Abdomen Exam Limited - 09/04/2021 5:45 am CLINICAL HISTORY: Eval solitary kidney (right) ARF, Liver (shock) COMPARISON: Abdomen Pelvis Wo Contrast dated 01/14/2016; Chest Abd Pelvis Wo Con dated 09/03/2021 FINDINGS: The liver demonstrates diffuse fatty infiltration.Simple appearing cyst in the right hepat ic lobe measuring up to 2.6 cm with increased through transmission. The right kidney is poorly visual ized. No hydronephrosis is seen.No evidence of portal vein thrombosis. Cholecystectomy. IMPRESSION: 1. Hepatic steatosis. 2. Right hepatic lobe cyst. 3. Limited visualization of the right kidney. Severe hydronephrosis not visualized. Correlating with the CT from 09/03/2021, no hydronephrosis was present on 09/03/2021.
--- NOTE | 2021-09-04 07:54 | EKG ---
Test Date: 2021-09-03 Test Time: 14:56:05 Breakfast Manager: SHAKA MEASUREMENT RESULTS: Intervals: Rate: 99 MA: 146 QRSD: 126 QT: 388 QTc: 497 [place]: P: 69 MA: 146 QRS: 57 T: 19 INTERPRETIVE STATEMENTS: Normal sinus rhythm Right bundle branch block Abnormal ECG Compared to ECG 08/30/2021 13:35:56 No significant changes Electronically Signed On 09-04-21 07:52:34 CDT by Julien Antony
[2021-09-04] MEDS: NA CHLORIDE 0.9% 1,000 ML IV SCH (08:14)
[2021-09-04] MEDS: HEPARIN 5000 UNIT/ML 1 ML VIAL SQ SCH ×2 (08:15→20:34)
[2021-09-04] MEDS: GABAPENTIN 300 MG CAP PO SCH ×3 (08:15→20:34)
[2021-09-04] MEDS: FAMOTIDINE 20 MG/2 ML VIAL IV SCH ×2 (08:15→20:35)
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
[2021-09-04] MEDS: NACHLORIDE 0.45% 1,000 ML IV SCH ×2 (11:14→20:38)
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
[2021-09-04] MEDS ORDERED: POTASSIUM 25 MEQ EFFERV TAB PO ONE (15:00)
[2021-09-04] MEDS ORDERED: Levofloxacin500mg IV 500 MG/100 ML BAG IV SCH (17:00)
[2021-09-04] MEDS ORDERED: VANCOMYCIN 2 GM in NA CHLORIDE 0.9% 500 ML IV SCH ×3 (18:00→23:00)
[2021-09-05] MEDS: HYDROCODONE/APAP 10/325 TAB PO PRN ×2 (03:01→20:12)
[2021-09-05 05:29] LABS: Absolute Lymphocytes (CBC) 1.7 K/uL (0.7-4.9); Hematocrit 25.9 % (39.6-49.0); MPV 7.6 fL (7.6-11.3); RBC Red Blood Cell Count 2.75 M/uL (4.33-5.43)
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
[2021-09-05 06:06] LABS: Albumin 2.3 g/dL (3.4-5.0); Bilirubin Total 2.3 mg/dL (0.2-1.0); Magnesium 2.3 mg/dL (1.8-2.4); Potassium 3.4 mmol/L (3.5-5.1); Protein, Total 5.5 g/dL (6.4-8.2)
[2021-09-05] MEDS ORDERED: VANCOMYCIN 2 GM in NA CHLORIDE 0.9% 500 ML IV SCH (06:30)
[2021-09-05] MEDS: HEPARIN 5000 UNIT/ML 1 ML VIAL SQ SCH ×2 (08:16→20:11)
[2021-09-05] MEDS: FAMOTIDINE 20 MG/2 ML VIAL IV SCH ×2 (08:16→20:12)
[2021-09-05] MEDS: GABAPENTIN 300 MG CAP PO SCH ×3 (08:16→20:13)
[2021-09-05] MEDS: NACHLORIDE 0.45% 1,000 ML IV SCH (08:17)
[2021-09-05] MEDS ORDERED: POTASSIUM 25 MEQ EFFERV TAB PO ONE (09:00)
--- NOTE | 2021-09-05 10:13 | P.PN ---
Date of Service: 09/05/21 Vital Signs Temp Pulse Resp BP Pulse Ox 98.5 F 92 H 20 121/49 L 100 09/05/21 08:00 09/05/21 09:00 09/05/21 09:00 09/05/21 09:00 09/05/21 09:00 Medications Hydrocodone Bitart/Acetaminophen (Hydrocodone/Apap 10/325 Tab) 1 tab PO Q6H PRN PRN Reason: Pain scale 5-7 (Moderate) Last Admin: 09/05/21 03:01 Dose: 1 tab Documented by: Famotidine (Famotidine 20 Mg/2 Ml Vial) 20 mg IV BID [facility]; Protocol Last Admin: 09/05/21 08:16 Dose: 20 mg Documented by: Gabapentin (Gabapentin 300 Mg Cap) 300 mg PO TID [facility] Last Admin: 09/05/21 08:16 Dose: 300 mg Documented by: Heparin Sodium (Porcine) (Heparin 5000 Unit/Ml 1 Ml Vial) 5,000 unit SQ Q12HR [facility] Last Admin: 09/05/21 08:16 Dose: 5,000 unit Documented by: Vancomycin HCl 2 gm/ Sodium (Chloride) 500 mls @ 250 mls/hr IV Q24H [facility] Last Admin: 09/04/21 18:02 Dose: 500 mls Documented by: Levofloxacin/Dextrose (Levaquin 750 Mg/150 Ml Ivpb (Premix)) 750 mg in 150 mls @ 100 mls/hr IV Q48H [facility]; Protocol Ondansetron HCl (Ondansetron 4 Mg/2 Ml Vial) 4 mg IV Q6HP PRN PRN Reason: NAUSEA / VOMITING Sodium Chloride (Flush Normal Saline 10 Ml) 10 ml IV BID [facility] Last Admin: 09/05/21 08:12 Dose: 10 ml Documented by: Microbiology Results 09/03/21 16:00 Clean Catch Urine [place] Count - Preliminary >100,000 CFU/ML. 09/03/21 16:00 Clean Catch Urine - Preliminary Klebsiella Pneumoniae 09/03/21 15:15 Blood - Blood Aerobic Blood Culture - Preliminary Gram Neg Matt 09/03/21 15:15 Blood - Blood Blood Culture Gram Stain - Final 09/03/21 15:15 Blood - Blood Anaerobic Blood Culture - Preliminary No growth in 24 hours. 09/03/21 15:50 Blood - Blood Aerobic Blood Culture - Preliminary Gram Neg Matt 09/03/21 15:50 Blood - Blood Blood Culture Gram Stain - Final 09/03/21 15:50 Blood - Blood Anaerobic Blood Culture - Preliminary No growth in 24 hours. Assessment/ Plan: Nephrology Malaise and weakness. Reports labored breathing. No chest pain No acute events overnight Vitals, medications, blood work and imaging reviewed in the chart. General: Oriented x3, Cooperative HEENT: Atraumatic Neck: Supple Respiratory: Normal air movement Cardiovascular: Regular rate/rhythm, Edema Gastrointestinal: Soft and benign, Non-distended Musculoskeletal: No clubbing Integumentary: No rashes, No cyanosis Neurological: Normal speech, Abnormal strength, Abnormal tone, Abnormal reflexes Laboratory Data (last 24 hrs) 09/03/21 15:31: Sodium Cancelled, Potassium Cancelled, BUN Cancelled, Creatinine Cancelled, Glucose Cancelled, Total Bilirubin Cancelled, AST Cancelled, ALT Cancelled, Alkaline Phosphatase Cancelled 09/03/21 15:15: WBC 25.6 H* D, Hgb 10.5 L, Hct 31.8 L, Plt Count 312 09/03/21 15:15: Sodium 137, Potassium 3.7, BUN 63 H D, Creatinine 2.70 H D, Glucose 76, Total Bilirubin 2.0 H, AST 5303 H* D, ALT 2592 H* D, Alkaline Phosphatase 149 H 09/03/21 05:00: Uric Acid Cancelled Imagings Data: EXAM DESCRIPTION: US - Abdomen Exam Limited - 09/04/2021 5:45 am CLINICAL HISTORY: Eval solitary kidney (right) ARF, Liver (shock) COMPARISON: Abdomen Pelvis Wo Contrast dated 01/14/2016; Chest Abd Pelvis Wo Con dated 09/03/2021 FINDINGS: The liver demonstrates diffuse fatty infiltration.Simple appearing cyst in the right hepatic lobe measuring up to 2.6 cm with increased through transmission. The right kidney is poorly visualized. No hydronephrosis is seen.No evidence of portal vein thrombosis. Cholecystectomy. IMPRESSION: 1. Hepatic steatosis. 2. Right hepatic lobe cyst. 3. Limited visualization of the right kidney. Severe hydronephrosis not visualized. Correlating with the CT from 09/03/2021, no hydronephrosis was present on 09/03/2021. EXAM DESCRIPTION: CT - Chest Abd Pelvis Wo Con - 09/03/2021 6:41 pm CLINICAL HISTORY: Chest and abdomen pain. septic shock, ARF, Acute hepatitis, abdominal pain/chest pa COMPARISON: Chest For Pe Angio dated 08/30/2021 TECHNIQUE: A limited noncontrast study was performed. All CT scans are performed using dose optimization technique as appropriate and may include automated exposure control or mA/KV adjustment according to patient size. FINDINGS: The lung mar appear emphysematous with areas of linear scarring in the left apex.No pleural or pericardial effusion.No intrathoracic adenopathy The liver appears normal size. 3.6 cm cyst is suspected anterior right lobe. No intra or extrahepatic biliary tree dilatation is seen. The spleen, pancreas and adrenal glands are normal. Left nephrectomy noted. Punctate calculi calices of the right kidney without hydronephrosis. No bowel obstruction, free air, free fluid or abscess. Nonvisualized appendix. Moderate stool retained throughout the colon to No pathologic lymphadenopathy in the abdomen or pelvis. There is evidence of an oblique fracture involving the proximal left femur. IMPRESSION: There is evidence of an oblique fracture of the proximal left femur. Moderate stool is retained throughout the colon. Tiny punctate right renal calculi without hydronephrosis. EXAM DESCRIPTION: RAD - Chest Single View - 09/03/2021 4:13 pm CLINICAL HISTORY: CHEST PAIN Chest pain. COMPARISON: Chest Single View dated 08/30/2021; Chest Single View dated 06/03/2019; Chest Single View dated 08/07/2016; Chest Single View dated 01/14/2016 FINDINGS: Portable technique limits examination quality. Moderate bilateral pulmonary opacities are present, essentially unchanged since comparative study. This likely represents pulmonary edema or infection/ pneumonia. The heart is mildly enlarged in size. No displaced fractures. Conclusions/Impression: ILANA likely due to hypovolemia/ sepsis CKD III with proteinuria Left nephrectomy -No NSAIDs -Discontinue IVF Hypokalemia -Replete potassium Acidosis, resolved Hyperuricemia Hyperglycemia -A1C pending -No sugar diet Acute hepatitis likely due to shock -Monitor LFT Moderate malnutrition -Encourage nutrition Anemia in chronic illness -Monitor H&H Acute infective cystitis Sepsis/ Septic shock -Contnue Abx -Discontinue IVF; IVF bolus as needed Case reviewed with Dr. Dennis Consider a CXR if persistent dyspnea
[2021-09-05] MEDS: VITAMIN D 5,000 UNIT CAP PO SCH (12:00)
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
[2021-09-05] MEDS: ACETAMINOPHEN 500 MG TAB PO PRN (15:39)
[2021-09-05] MEDS ORDERED: Levofloxacin 750mg IV 750 MG/150 ML BAG IV SCH (17:00)
[2021-09-05] MEDS: MELATONIN 5 MG TABLET PO PRN (22:23)
[2021-09-05] MEDS ORDERED: POTASSIUM CL SA 10 MEQ TAB PO ONE (23:53)
[2021-09-06 05:21] LABS: Absolute Lymphocytes (CBC) 1.5 K/uL (0.7-4.9); Lymphocytes % 14.1 % (15.3-44.8); MPV 7.5 fL (7.6-11.3); RBC Red Blood Cell Count 2.41 M/uL (4.33-5.43)
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
[2021-09-06 06:37] LABS: Albumin 2.1 g/dL (3.4-5.0); Alkaline Phosphatase 257 U/L (45-117); BUN Blood Urea Nitrogen 23 mg/dL (7-18); Bicarbonate 25 mmol/L (21-32); Bilirubin Total 2.1 mg/dL (0.2-1.0); Folic Acid, (Folate) > 20.0 ng/mL (3.1-17.5); Glucose Level 140 mg/dL (74-106); Magnesium 2.3 mg/dL (1.8-2.4); Potassium 3.4 mmol/L (3.5-5.1); Protein, Total 5.4 g/dL (6.4-8.2); Sodium Level 145 mmol/L (136-145); Transferrin 158 mg/dL (200-360); Uric Acid 8.9 mg/dL (3.5-7.2)
[2021-09-06 06:42] LABS: ALT/SGPT 1755 U/L (12-78); AST/SGOT 748 U/L (15-37)
[2021-09-06 06:44] LABS: Phosphorus 0.6 mg/dL (2.5-4.9)
--- NOTE | 2021-09-06 07:57 | RAD REPORT ---
EXAM DESCRIPTION: [place] Single View09/06/2021 6:54 am CLINICAL HISTORY: Hypoxia COMPARISON: September 03, 2021 FINDINGS: Mild bilateral interstitial opacities are unchanged. Heart remains enlarged. Chronic elevation of the right hemidiaphragm IMPRESSION: No change in mild bilateral interstitial lung opacities
[2021-09-06] MEDS: ACETAMINOPHEN 500 MG TAB PO PRN (08:10)
[2021-09-06] MEDS: GABAPENTIN 300 MG CAP PO SCH ×3 (08:11→20:01)
[2021-09-06] MEDS: VITAMIN D 5,000 UNIT CAP PO SCH (08:11)
[2021-09-06] MEDS: FAMOTIDINE 20 MG/2 ML VIAL IV SCH ×2 (08:11→20:01)
[2021-09-06] MEDS: HEPARIN 5000 UNIT/ML 1 ML VIAL SQ SCH ×2 (08:11→20:03)
[2021-09-06] MEDS: POTASS/SODIUM PHOSPHATE 1 PKT POWD.PACK PO SCH ×5 (08:45→22:56)
[2021-09-06] MEDS ORDERED: POTASSIUM 25 MEQ EFFERV TAB PO ONE (09:00)
--- NOTE | 2021-09-06 13:29 | P.PN ---
Subjective Date of Service: 09/06/21 Primary Care Provider: FADIA Chief Complaint: Septic shock Still having low-grade fever, T-max today of 100.5. Continue to monitor closely. Review of Systems 10-point ROS is otherwise unremarkable Physical Examination - Vital Signs Temperature: 97.5 F Blood Pressure: 135/61 Pulse: 80 Respirations: 15 Pulse Ox (%): 96 - Studies Laboratory Last Values WBC 25.6 K/uL (4.3-10.9) H* D 09/03/21 15:15 RBC 3.31 M/uL (4.33-5.43) L 09/03/21 15:15 Hgb 10.5 g/dL (13.6-17.9) L 09/03/21 15:15 Hct 31.8 % (39.6-49.0) L 09/03/21 15:15 MCV 96.3 fL (80-100) 09/03/21 15:15 MCH 31.8 pg (27.0-35.0) 09/03/21 15:15 MCHC 33.0 g/dL (32.0-36.0) 09/03/21 15:15 RDW 15.1 % (12.1-15.2) 09/03/21 15:15 Plt Count 312 K/uL (152-406) 09/03/21 15:15 MPV 8.3 fL (7.6-11.3) 09/03/21 15:15 Neutrophils % 88.5 % (41.7-73.7) H 09/03/21 15:15 Lymphocytes % 6.2 % (15.3-44.8) L 09/03/21 15:15 Monocytes % 4.4 % (3.3-12.3) 09/03/21 15:15 Eosinophils % 0.4 % (0-4.4) 09/03/21 15:15 Basophils % 0.5 % (0-1.3) 09/03/21 15:15 Absolute Neutrophils 22.7 K/uL (1.8-8.0) H 09/03/21 15:15 Segmented Neutrophils 84 % (40-80) H 09/03/21 15:15 Band Neutrophils 2 % (0-1) H 09/03/21 15:15 Absolute Lymphocytes 1.6 K/uL (0.7-4.9) 09/03/21 15:15 Lymphocytes 5 % (15-42) L 09/03/21 15:15 Monocytes 4 % (0-10) 09/03/21 15:15 Absolute Monocytes 1.1 K/uL (0.1-1.3) 09/03/21 15:15 Absolute Eosinophils 0.1 K/uL (0-0.5) 09/03/21 15:15 Absolute Basophils 0.1 K/uL (0-0.5) 09/03/21 15:15 Toxic Granulation 2+ 09/03/21 15:15 Platelet Estimate Adeq 09/03/21 15:15 Morphology Comment Not seen (NOT SEEN) 09/03/21 15:15 Sodium Cancelled 09/03/21 15:31 Potassium Cancelled 09/03/21 15:31 Chloride Cancelled 09/03/21 15:31 Carbon Dioxide Cancelled 09/03/21 15:31 BUN Cancelled 09/03/21 15:31 Creatinine Cancelled 09/03/21 15:31 Estimated GFR Cancelled 09/03/21 15:31 Glucose Cancelled 09/03/21 15:31 Lactic Acid 3.9 mmol/L (0.4-2.0) H 09/03/21 15:50 Uric Acid Cancelled 09/03/21 05:00 Calcium Cancelled 09/03/21 15:31 Total Bilirubin Cancelled 09/03/21 15:31 AST Cancelled 09/03/21 15:31 ALT Cancelled 09/03/21 15:31 Alkaline Phosphatase Cancelled 09/03/21 15:31 Troponin I High Sens 4.4 pg/mL (<58.9) 09/03/21 15:15 Serum Total Protein Cancelled 09/03/21 15:31 Albumin Cancelled 09/03/21 15:31 Globulin Cancelled 09/03/21 15:31 Albumin/Globulin Ratio Cancelled 09/03/21 15:31 Urine pH 6.0 (5.0-7.0) 09/03/21 16:12 Ur Specific [place] 1.020 (1.005-1.030) 09/03/21 16:12 Glucose (UA)(Auto) Negative (Negative) 09/03/21 16:12 Urine Ketones Trace (Negative) H 09/03/21 16:12 Urine Blood 2+ (Negative) H 09/03/21 16:12 Urine Nitrite Negative (Negative) 09/03/21 16:12 Ur Leukocyte Esterase 1+ (Negative) H 09/03/21 16:12 Urine RBC 5-10 /HPF (NONE SEEN) H 09/03/21 16:00 Urine WBC 20-50 /HPF (<5) H 09/03/21 16:00 Ur Squamous Epith Cells <5 /HPF (NONE SEEN) 09/03/21 16:00 Urine Bacteria Loaded /HPF (NONE SEEN) H 09/03/21 16:00 Urine Culture Reflexed Reflexed 09/03/21 16:00 Urine Total Protein 2+ (Negative) H 09/03/21 16:12 Influenza Type A RNA Negative (NEGATIVE) 09/03/21 13:28 Influenza Type B RNA Negative (NEGATIVE) 09/03/21 13:28 SARS-CoV-2 RNA (RT-PCR) Negative (NEGATIVE) 09/03/21 13:28 Microbiology Data (last 24 hrs): 09/03/21 15:15 Blood - Blood Aerobic Blood Culture - Final Gram Neg Amtt Klebsiella Pneumoniae 09/03/21 15:15 Blood - Blood Blood Culture Gram Stain - Final 09/03/21 15:50 Blood - Blood Aerobic Blood Culture - Final Gram Neg Matt Klebsiella Pneumoniae 09/03/21 15:50 Blood - Blood Blood Culture Gram Stain - Final Assessment And Plan - Plan Physical Exam: General: Alert, In no apparent distress, Obese HEENT: Atraumatic, Normocephalic Neck: Supple, JVD not distended Respiratory: Clear to auscultation bilaterally, Normal air movement Cardiovascular: No edema, Regular rate/rhythm Capillary refill: <2 Seconds Gastrointestinal: Soft and benign Integumentary: No rashes, No breakdown Conclusions/Impression: Antibiotics: Levaquin: 3/13current Vancomycin: Assessment/plan Urosepsis -Blood and urine culture growing Klebsiella, both sensitive to fluoroquinolones. Recommend continuing Levaquin at this time, patient has history of penicillin allergy however type of reaction not specified. CT abdomen pelvis showed nonobstructing right kidney stone. Patient may benefit from outpatient urology consultation. Oblique fracture of proximal left femur Ortho consulted Leukocytosis Related to sepsis. Continue antibiotics and continue to monitor. Pneumonia? -Chest x-ray showed bilateral pulmonary opacities representing edema versus inflammation/infection. Lungs clear to auscultation, patient aerating well on room air. Low clinical suspicion for pneumonia. Plan of care discussed with Dr. Pandya Thank you for consultation
--- NOTE | 2021-09-06 20:56 | P.PN ---
Date of Service: 09/06/21 Vital Signs Temp Pulse Resp BP Pulse Ox 98 F 85 17 154/74 H 98 09/06/21 19:00 09/06/21 19:00 09/06/21 19:00 09/06/21 19:00 09/06/21 18:00 Medications Acetaminophen (Acetaminophen 500 Mg Tab) 500 mg PO Q8HP PRN PRN Reason: TEMP > 100.4' F Last Admin: 09/06/21 08:10 Dose: 500 mg Documented by: Hydrocodone Bitart/Acetaminophen (Hydrocodone/Apap 10/325 Tab) 1 tab PO Q6H PRN PRN Reason: Pain scale 5-7 (Moderate) Last Admin: 09/05/21 20:12 Dose: 1 tab Documented by: Cholecalciferol (Vitamin D 5,000 Unit Cap) 5,000 unit PO DAILY [facility] Last Admin: 09/06/21 08:11 Dose: 5,000 unit Documented by: Famotidine (Famotidine 20 Mg/2 Ml Vial) 20 mg IV BID [facility]; Protocol Last Admin: 09/06/21 20:01 Dose: 20 mg Documented by: Gabapentin (Gabapentin 300 Mg Cap) 300 mg PO TID [facility] Last Admin: 09/06/21 20:01 Dose: 300 mg Documented by: Heparin Sodium (Porcine) (Heparin 5000 Unit/Ml 1 Ml Vial) 5,000 unit SQ Q12HR [facility] Last Admin: 09/06/21 20:03 Dose: 5,000 unit Documented by: Levofloxacin/Dextrose (Levaquin 750 Mg/150 Ml Ivpb (Premix)) 750 mg in 150 mls @ 100 mls/hr IV Q48H [facility]; Protocol Last Admin: 09/05/21 17:11 Dose: 150 mls Documented by: Melatonin (Melatonin 5 Mg Tablet) 5 mg PO BEDTIME PRN PRN PRN Reason: INSOMNIA Last Admin: 09/05/21 22:23 Dose: 5 mg Documented by: Ondansetron HCl (Ondansetron 4 Mg/2 Ml Vial) 4 mg IV Q6HP PRN PRN Reason: NAUSEA / VOMITING Sodium Chloride (Flush Normal Saline 10 Ml) 10 ml IV BID [facility] Last Admin: 09/06/21 20:01 Dose: 10 ml Documented by: Microbiology Results 09/03/21 16:00 Clean Catch Urine [place] Count - Preliminary >100,000 CFU/ML. 09/03/21 16:00 Clean Catch Urine - Preliminary Klebsiella Pneumoniae 09/03/21 15:15 Blood - Blood Aerobic Blood Culture - Final Gram Neg Matt Klebsiella Pneumoniae 09/03/21 15:15 Blood - Blood Blood Culture Gram Stain - Final 09/03/21 15:15 Blood - Blood Anaerobic Blood Culture - Preliminary No growth in 24 hours. 09/03/21 15:50 Blood - Blood Aerobic Blood Culture - Final Gram Neg Matt Klebsiella Pneumoniae 09/03/21 15:50 Blood - Blood Blood Culture Gram Stain - Final 09/03/21 15:50 Blood - Blood Anaerobic Blood Culture - Preliminary No growth in 24 hours. Assessment/ Plan: Nephrology Cough and congestion today No chest pain No acute events overnight Vitals, medications, blood work and imaging reviewed in the chart. General: Oriented x3, Cooperative HEENT: Atraumatic Neck: Supple Respiratory: Normal air movement Cardiovascular: Regular rate/rhythm, Edema Gastrointestinal: Soft and benign, Non-distended Musculoskeletal: No clubbing Integumentary: No rashes, No cyanosis Neurological: Normal speech, Abnormal strength, Abnormal tone, Abnormal reflexes Laboratory Data (last 24 hrs) 09/03/21 15:31: Sodium Cancelled, Potassium Cancelled, BUN Cancelled, Creatinine Cancelled, Glucose Cancelled, Total Bilirubin Cancelled, AST Cancelled, ALT Cancelled, Alkaline Phosphatase Cancelled 09/03/21 15:15: WBC 25.6 H* D, Hgb 10.5 L, Hct 31.8 L, Plt Count 312 09/03/21 15:15: Sodium 137, Potassium 3.7, BUN 63 H D, Creatinine 2.70 H D, Glucose 76, Total Bilirubin 2.0 H, AST 5303 H* D, ALT 2592 H* D, Alkaline Phosphatase 149 H 09/03/21 05:00: Uric Acid Cancelled Imagings Data: EXAM DESCRIPTION: US - Abdomen Exam Limited - 09/04/2021 5:45 am CLINICAL HISTORY: Eval solitary kidney (right) ARF, Liver (shock) COMPARISON: Abdomen Pelvis Wo Contrast dated 01/14/2016; Chest Abd Pelvis Wo Con dated 09/03/2021 FINDINGS: The liver demonstrates diffuse fatty infiltration.Simple appearing cyst in the right hepatic lobe measuring up to 2.6 cm with increased through transmission. The right kidney is poorly visualized. No hydronephrosis is seen.No evidence of portal vein thrombosis. Cholecystectomy. IMPRESSION: 1. Hepatic steatosis. 2. Right hepatic lobe cyst. 3. Limited visualization of the right kidney. Severe hydronephrosis not visualized. Correlating with the CT from 09/03/2021, no hydronephrosis was present on 09/03/2021. EXAM DESCRIPTION: CT - Chest Abd Pelvis Wo Con - 09/03/2021 6:41 pm CLINICAL HISTORY: Chest and abdomen pain. septic shock, ARF, Acute hepatitis, abdominal pain/chest pa COMPARISON: Chest For Pe Angio dated 08/30/2021 TECHNIQUE: A limited noncontrast study was performed. All CT scans are performed using dose optimization technique as appropriate and may include automated exposure control or mA/KV adjustment according to patient size. FINDINGS: The lung mar appear emphysematous with areas of linear scarring in the left apex.No pleural or pericardial effusion.No intrathoracic adenopathy The liver appears normal size. 3.6 cm cyst is suspected anterior right lobe. No intra or extrahepatic biliary tree dilatation is seen. The spleen, pancreas and adrenal glands are normal. Left nephrectomy noted. Punctate calculi calices of the right kidney without hydronephrosis. No bowel obstruction, free air, free fluid or abscess. Nonvisualized appendix. Moderate stool retained throughout the colon to No pathologic lymphadenopathy in the abdomen or pelvis. There is evidence of an oblique fracture involving the proximal left femur. IMPRESSION: There is evidence of an oblique fracture of the proximal left femur. Moderate stool is retained throughout the colon. Tiny punctate right renal calculi without hydronephrosis. EXAM DESCRIPTION: RAD - Chest Single View - 09/03/2021 4:13 pm CLINICAL HISTORY: CHEST PAIN Chest pain. COMPARISON: Chest Single View dated 08/30/2021; Chest Single View dated 06/03/2019; Chest Single View dated 08/07/2016; Chest Single View dated 01/14/2016 FINDINGS: Portable technique limits examination quality. Moderate bilateral pulmonary opacities are present, essentially unchanged since comparative study. This likely represents pulmonary edema or infection/ pneu monia. The heart is mildly enlarged in size. No displaced fractures. Conclusions/Impression: ILANA likely due to hypovolemia/ sepsis CKD III with proteinuria Left nephrectomy -No NSAIDs Hypokalemia -Replete potassium Acidosis, resolved HypoPO4 -Replete PO4 Hyperuricemia IFG -No sugar diet Acute hepatitis likely due to shock -Monitor LFT Moderate malnutrition -Encourage nutrition Anemia in chronic illness -Monitor H&H Acute infective cystitis Sepsis/ Septic shock -Contnue Abx Case reviewed with Dr. Dennis
[2021-09-06] MEDS: MELATONIN 5 MG TABLET PO PRN (22:02)
[2021-09-06 22:10] LABS: Phosphorus 1.3 mg/dL (2.5-4.9); Potassium 4.3 mmol/L (3.5-5.1)
[2021-09-07] MEDS: POTASS/SODIUM PHOSPHATE 1 PKT POWD.PACK PO SCH ×2 (00:04→01:03)
[2021-09-07] MEDS: HYDROCODONE/APAP 10/325 TAB PO PRN ×3 (03:09→23:35)
[2021-09-07 06:16] LABS: Absolute Lymphocytes (CBC) 1.8 K/uL (0.7-4.9); Hematocrit 21.5 % (39.6-49.0); Lymphocytes % 16.5 % (15.3-44.8); MPV 7.6 fL (7.6-11.3); RBC Red Blood Cell Count 2.25 M/uL (4.33-5.43)
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
[2021-09-07 06:35] LABS: Bilirubin Total 1.9 mg/dL (0.2-1.0); Magnesium 1.9 mg/dL (1.8-2.4); Phosphorus 2.6 mg/dL (2.5-4.9); Potassium 4.3 mmol/L (3.5-5.1); Protein, Total 5.2 g/dL (6.4-8.2)
[2021-09-07] MEDS: FAMOTIDINE 20 MG/2 ML VIAL IV SCH (08:13)
[2021-09-07] MEDS: GABAPENTIN 300 MG CAP PO SCH ×3 (08:14→20:03)
[2021-09-07] MEDS: HEPARIN 5000 UNIT/ML 1 ML VIAL SQ SCH ×2 (08:14→20:04)
[2021-09-07] MEDS: VITAMIN D 5,000 UNIT CAP PO SCH (08:14)
[2021-09-07 09:43] LABS: Blood Morphology Comment NOTED (NOT SEEN); Platelet Estimate ADEQ; Polychromasia 1+; Toxic Granulation 1+
[2021-09-07 11:19] LABS: Protime INR 1.24
[2021-09-07] MEDS: VANCOMYCIN 2 GM in NA CHLORIDE 0.9% 500 ML IV SCH ×2 (13:00→13:38)
[2021-09-07] MEDS ORDERED: VANCOMYCIN 1.5 GM in NA CHLORIDE 0.9% 500 ML IVPB SCH (13:00)
[2021-09-07 14:03] LABS: Hematocrit 22.8 % (39.6-49.0)
[2021-09-07] MEDS: Levofloxacin 750mg IV 750 MG/150 ML BAG IV SCH (17:00)
--- NOTE | 2021-09-07 19:14 | PN ---
Date of Progress Note: 09/07/2021 Subjective: The patient was seen and examined at bedside. He is doing okay. Denies any complaints other than the weakness in his arm. Physical Examination: Vital Signs: Have been reviewed and are stable. General: He appears in no acute distress. Lungs: Clear to auscultation. Abdomen: Soft. Neurologic: He is alert, awake, and oriented x3. Extremities: Showed no evidence of edema. Laboratory Data: Showing improving LFTs, which are trending down. Creatinine is stable. ILANA has re solved and high potassium is also improving to 4.3. His phosphorus has improved to 2.6 this morning. CBC showing stable hemoglobin and hematocrit. WBC count is also improving and platelet count is st able. Current Medications: Have been reviewed in detail. Impression: 1.Acute renal failure secondary to acute tubular necrosis, currently with improving function. 2.Elevated LFTs secondary to septic shock, currently improving, trending down. 3.Urine culture showing Enterococcus. The patient currently is on vancomycin. 4.Hypophosphatemia, improving. 5.Left femur fracture. The patient is needing surgery. Orthopedics is consulted. The patient may need surgery in a few days. Plan: Overall the patient is clinically stable. Monitor hemoglobin and hematocrit closely. Renal f unction is improving and shock liver is also improving. He remains on Levaquin and vancomycin curren tly for urinary tract infection. Blood pressure medicines are currently on hold. Avoid further hypotension, nephrotoxins, and we will continue to follow up. VV/MODL Voice ID: [id number] Report ID: [id number]
[2021-09-07] MEDS: ACETAMINOPHEN 500 MG TAB PO PRN (20:03)
[2021-09-08] MEDS: FAMOTIDINE 20 MG/2 ML VIAL IV SCH ×2 (01:31→09:35)
[2021-09-08] MEDS: VANCOMYCIN 2 GM in NA CHLORIDE 0.9% 500 ML IV SCH (01:34)
[2021-09-08] MEDS: Levofloxacin 750mg IV 750 MG/150 ML BAG IV SCH ×2 (01:40→16:27)
[2021-09-08 05:59] LABS: RBC Red Blood Cell Count 2.22 M/uL (4.33-5.43)
[2021-09-08 06:00] LABS: Hematocrit 21.2 % (39.6-49.0); Lymphocytes % 14.6 % (15.3-44.8); MPV 7.9 fL (7.6-11.3)
[2021-09-08 06:31] LABS: AST/SGOT 107 U/L (15-37); Albumin 2.2 g/dL (3.4-5.0); Alkaline Phosphatase 247 U/L (45-117); BUN Blood Urea Nitrogen 13 mg/dL (7-18); Bicarbonate 29 mmol/L (21-32); Bilirubin Total 1.2 mg/dL (0.2-1.0); Glucose Level 125 mg/dL (74-106); Phosphorus 2.8 mg/dL (2.5-4.9); Potassium 4.6 mmol/L (3.5-5.1); Protein, Total 5.7 g/dL (6.4-8.2); Sodium Level 141 mmol/L (136-145)
[2021-09-08 06:33] LABS: ALT/SGPT 760 U/L (12-78)
[2021-09-08] MEDS: HEPARIN 5000 UNIT/ML 1 ML VIAL SQ SCH ×2 (09:35→21:38)
[2021-09-08] MEDS: VITAMIN D 5,000 UNIT CAP PO SCH (09:36)
[2021-09-08] MEDS: GABAPENTIN 300 MG CAP PO SCH ×3 (09:36→21:38)
--- NOTE | 2021-09-08 10:06 | PN ---
Date of Progress Note: 09/08/2021 The patient is seen today and appears to be relatively comfortable, lying in the bed. His white blood cell count is now 13.8 with a hemoglobin of 7.0. He still has high neutrophils. I came back to see him as he is doing quite a bit better than he was when I saw him in the ICU and there was a question of how to manage his proximal femur fracture. This is an excellent question as the standard of proximal femur fracture is generally fixation probably with intramedullary mitra; however, he does have complicated fractures including acute hepatitis, acute renal failure, septic shot, hypertension, anemia, and paraplegia. The benefit of repairing the femur may make easier for him to move and manipulate his extremity and may also assist some and sitting balance; however, the risks are obviously evident and this was discussed with him in great detail. He is unsure when he would like to do this, when he would like to speak with his neurosurgeon whom he says is his primary doctor with regard to questions such as these. Also, he was seen with Dr. Dennis. He will need to make a decision fairly soon as discharge may be approaching and if this treatment is delayed for some time, most likely will make it very advisable to proceed with surgery. He has some questions with regard to having surgery; however, I am not sure how he will see them or how they will schedule this, but he was told that I am here to perform procedure if he is still here and desires and is cleared for surgery medically. If he does decide we need to know somewhat soon because he will obviously need further medical management including most probably transfusion, cessation of mild blood thinners and continued monitoring. He says he understands things as presented, but he is not sure exactly what they like to do at this point. All his questions have otherwise been answered today. /ANTONINA Voice ID: [id number] Report ID: [id number] ALICIA
--- NOTE | 2021-09-08 12:47 | P.PN ---
Subjective Date of Service: 09/08/21 Primary Care Provider: FADIA Chief Complaint: Sepsis Subjective: Improving (Patient is doing well no new complaints he has been paraplegic for a long time patient has an oblique fracture in the left femur still has some decub ulcers in his feet) Review of Systems 10-point ROS is otherwise unremarkable General: Weakness Physical Examination - Vital Signs Temperature: 97.8 F Blood Pressure: 162/82 Pulse: 81 Respirations: 18 Pulse Ox (%): 98 - Physical Exam General: Alert, In no apparent distress, Oriented x3 Neck: Supple Respiratory: Clear to auscultation bilaterally Cardiovascular: Normal S1 S2, Edema - Studies Microbiology Data (last 24 hrs): 09/03/21 15:15 Blood - Blood Aerobic Blood Culture - Final Gram Neg Matt Klebsiella Pneumoniae 09/03/21 15:15 Blood - Blood Blood Culture Gram Stain - Final 09/03/21 15:15 Blood - Blood Anaerobic Blood Culture - Final No growth in 5 days. 09/03/21 15:50 Blood - Blood Aerobic Blood Culture - Final Gram Neg Matt Klebsiella Pneumoniae 09/03/21 15:50 Blood - Blood Blood Culture Gram Stain - Final 09/03/21 15:50 Blood - Blood Anaerobic Blood Culture - Final No growth in 5 days. 09/03/21 16:00 Clean Catch Urine [place] Count - Final >100,000 CFU/ML. 09/03/21 16:00 Clean Catch Urine - Final Klebsiella Pneumoniae Enterococcus Faecalis Assessment And Plan - Current Problems (Diagnosis) (1) Sepsis Current Visit: Yes Status: Acute Qualifiers: Sepsis acute organ dysfunction status: with acute organ dysfunction Severe sepsis shock status: with septic shock - Plan Patient is 65 years of age admitted he admitted in septic shock FCL isolated in the urine he is currently more stable recovered from the sepsis vital signs oxygenation all stable her function tests are improving renal function is normal white count is slightly elevated patient's blood cultures were positive for Klebsiella and Enterococcus continue with IV antibiotics levofloxacin and vancomycin patient is also mildly anemic so far no orthopedic intervention is planned for his fracture and is also paraplegic I suspect he may be cleared in a couple of days have surgery done
[2021-09-08] MEDS: HYDROCODONE/APAP 10/325 TAB PO PRN (21:37)
[2021-09-08] MEDS: MELATONIN 5 MG TABLET PO PRN (21:38)
[2021-09-09] MEDS: VANCOMYCIN 2 GM in NA CHLORIDE 0.9% 500 ML IV SCH (01:40)
[2021-09-09 04:05] LABS: Absolute Lymphocytes (CBC) 2.1 K/uL (0.7-4.9); Hematocrit 21.9 % (39.6-49.0); Lymphocytes % 13.9 % (15.3-44.8); MPV 8.7 fL (7.6-11.3); RBC Red Blood Cell Count 2.25 M/uL (4.33-5.43)
[2021-09-09 04:33] LABS: Magnesium 1.8 mg/dL (1.8-2.4); Phosphorus 3.3 mg/dL (2.5-4.9); Potassium 4.7 mmol/L (3.5-5.1); Protein, Total 5.5 g/dL (6.4-8.2)
[2021-09-09] MEDS ORDERED: MAGNESIUM SULFATE 1 gm IVPB 1 GM/100 ML BAG IV ONE (09:00)
[2021-09-09] MEDS: GABAPENTIN 300 MG CAP PO SCH ×3 (09:25→21:59)
[2021-09-09] MEDS: VITAMIN D 5,000 UNIT CAP PO SCH (09:25)
[2021-09-09] MEDS: HEPARIN 5000 UNIT/ML 1 ML VIAL SQ SCH ×2 (09:25→21:59)
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
[2021-09-09] MEDS ORDERED: NA CHLORIDE 0.9% 250 ML IV SCH (15:00)
--- NOTE | 2021-09-09 15:25 | P.PN ---
Subjective Date of Service: 09/09/21 Primary Care Provider: [place] Chief Complaint: Sepsis Still having low-grade fever, slight increase in WBC. Repeat urine analysis and urine culture ordered. Review of Systems 10-point ROS is otherwise unremarkable Physical Examination - Vital Signs Temperature: 97 F Blood Pressure: 116/54 Pulse: 80 Respirations: 18 Pulse Ox (%): 96 - Studies Laboratory Last Values WBC 25.6 K/uL (4.3-10.9) H* D 09/03/21 15:15 RBC 3.31 M/uL (4.33-5.43) L 09/03/21 15:15 Hgb 10.5 g/dL (13.6-17.9) L 09/03/21 15:15 Hct 31.8 % (39.6-49.0) L 09/03/21 15:15 MCV 96.3 fL (80-100) 09/03/21 15:15 MCH 31.8 pg (27.0-35.0) 09/03/21 15:15 MCHC 33.0 g/dL (32.0-36.0) 09/03/21 15:15 RDW 15.1 % (12.1-15.2) 09/03/21 15:15 Plt Count 312 K/uL (152-406) 09/03/21 15:15 MPV 8.3 fL (7.6-11.3) 09/03/21 15:15 Neutrophils % 88.5 % (41.7-73.7) H 09/03/21 15:15 Lymphocytes % 6.2 % (15.3-44.8) L 09/03/21 15:15 Monocytes % 4.4 % (3.3-12.3) 09/03/21 15:15 Eosinophils % 0.4 % (0-4.4) 09/03/21 15:15 Basophils % 0.5 % (0-1.3) 09/03/21 15:15 Absolute Neutrophils 22.7 K/uL (1.8-8.0) H 09/03/21 15:15 Segmented Neutrophils 84 % (40-80) H 09/03/21 15:15 Band Neutrophils 2 % (0-1) H 09/03/21 15:15 Absolute Lymphocytes 1.6 K/uL (0.7-4.9) 09/03/21 15:15 Lymphocytes 5 % (15-42) L 09/03/21 15:15 Monocytes 4 % (0-10) 09/03/21 15:15 Absolute Monocytes 1.1 K/uL (0.1-1.3) 09/03/21 15:15 Absolute Eosinophils 0.1 K/uL (0-0.5) 09/03/21 15:15 Absolute Basophils 0.1 K/uL (0-0.5) 09/03/21 15:15 Toxic Granulation 2+ 09/03/21 15:15 Platelet Estimate Adeq 09/03/21 15:15 Morphology Comment Not seen (NOT SEEN) 09/03/21 15:15 Sodium Cancelled 09/03/21 15:31 Potassium Cancelled 09/03/21 15:31 Chloride Cancelled 09/03/21 15:31 Carbon Dioxide Cancelled 09/03/21 15:31 BUN Cancelled 09/03/21 15:31 Creatinine Cancelled 09/03/21 15:31 Estimated GFR Cancelled 09/03/21 15:31 Glucose Cancelled 09/03/21 15:31 Lactic Acid 3.9 mmol/L (0.4-2.0) H 09/03/21 15:50 Uric Acid Cancelled 09/03/21 05:00 Calcium Cancelled 09/03/21 15:31 Total Bilirubin Cancelled 09/03/21 15:31 AST Cancelled 09/03/21 15:31 ALT Cancelled 09/03/21 15:31 Alkaline Phosphatase Cancelled 09/03/21 15:31 Troponin I High Sens 4.4 pg/mL (<58.9) 09/03/21 15:15 Serum Total Protein Cancelled 09/03/21 15:31 Albumin Cancelled 09/03/21 15:31 Globulin Cancelled 09/03/21 15:31 Albumin/Globulin Ratio Cancelled 09/03/21 15:31 Urine pH 6.0 (5.0-7.0) 09/03/21 16:12 Ur Specific [place] 1.020 (1.005-1.030) 09/03/21 16:12 Glucose (UA)(Auto) Negative (Negative) 09/03/21 16:12 Urine Ketones Trace (Negative) H 09/03/21 16:12 Urine Blood 2+ (Negative) H 09/03/21 16:12 Urine Nitrite Negative (Negative) 09/03/21 16:12 Ur Leukocyte Esterase 1+ (Negative) H 09/03/21 16:12 Urine RBC 5-10 /HPF (NONE SEEN) H 09/03/21 16:00 Urine WBC 20-50 /HPF (<5) H 09/03/21 16:00 Ur Squamous Epith Cells <5 /HPF (NONE SEEN) 09/03/21 16:00 Urine Bacteria Loaded /HPF (NONE SEEN) H 09/03/21 16:00 Urine Culture Reflexed Reflexed 09/03/21 16:00 Urine Total Protein 2+ (Negative) H 09/03/21 16:12 Influenza Type A RNA Negative (NEGATIVE) 09/03/21 13:28 Influenza Type B RNA Negative (NEGATIVE) 09/03/21 13:28 SARS-CoV-2 RNA (RT-PCR) Negative (NEGATIVE) 09/03/21 13:28 Assessment And Plan - Plan Physical Exam: General: Alert, In no apparent distress, Obese HEENT: Atraumatic, Normocephalic Neck: Supple, JVD not distended Respiratory: Clear to auscultation bilaterally, Normal air movement Cardiovascular: No edema, Regular rate/rhythm Capillary refill: <2 Seconds Gastrointestinal: Soft and benign Integumentary: No rashes, No breakdown Conclusions/Impression: Antibiotics: vancomcyin: /4-current Levaquin: 3/13current Vancomycin: Assessment/plan Urosepsis -Blood cultures growing Klebsiella sensitive to Levaquin Urine culture growing Klebsiella and Enterococcus faecalis. Enterococcus faecalis is resistant to Levaquin, as such vancomycin has been added to antibiotic regimen. CT abdomen pelvis showed nonobstructing right kidney stone. Patient may benefit from outpatient urology consultation. Oblique fracture of proximal left femur Ortho consulted. Opted for nonsurgical approach. Leukocytosis -Repeat urine analysis and urine culture pending. Continue to trend.. Pneumonia? -Chest x-ray showed bilateral pulmonary opacities representing edema versus inflammation/infection. Lungs clear to auscultation, patient aerating well on room air. Low clinical suspicion for pneumonia. Plan of care discussed with Dr. Pandya Thank you for consultation
[2021-09-09] MEDS: HYDROCODONE/APAP 10/325 TAB PO PRN ×2 (15:31→21:59)
[2021-09-09] MEDS: Levofloxacin 750mg IV 750 MG/150 ML BAG IV SCH (16:50)
--- NOTE | 2021-09-09 17:09 | P.PN ---
Date of Service: 09/09/21 Vital Signs Temp Pulse Resp BP Pulse Ox 97 F 80 18 116/54 L 96 09/09/21 15:25 09/09/21 15:25 09/09/21 15:25 09/09/21 15:25 09/09/21 15:25 Medications Acetaminophen (Acetaminophen 500 Mg Tab) 500 mg PO Q8HP PRN PRN Reason: TEMP > 100.4' F Last Admin: 09/07/21 20:03 Dose: 500 mg Documented by: Hydrocodone Bitart/Acetaminophen (Hydrocodone/Apap 10/325 Tab) 1 tab PO Q6H PRN PRN Reason: Pain scale 5-7 (Moderate) Last Admin: 09/09/21 15:31 Dose: 1 tab Documented by: Cholecalciferol (Vitamin D 5,000 Unit Cap) 5,000 unit PO DAILY [facility] Last Admin: 09/09/21 09:25 Dose: 5,000 unit Documented by: Gabapentin (Gabapentin 300 Mg Cap) 300 mg PO TID [facility] Last Admin: 09/09/21 15:28 Dose: 300 mg Documented by: Heparin Sodium (Porcine) (Heparin 5000 Unit/Ml 1 Ml Vial) 5,000 unit SQ Q12HR [facility] Last Admin: 09/09/21 09:25 Dose: 5,000 unit Documented by: Levofloxacin/Dextrose (Levaquin 750 Mg/150 Ml Ivpb (Premix)) 750 mg in 150 mls @ 100 mls/hr IV Q24H [facility]; Protocol Last Admin: 09/09/21 16:50 Dose: 150 mls Documented by: Vancomycin HCl 2 gm/ Sodium (Chloride) 500 mls @ 250 mls/hr IV Q24H [facility] Last Admin: 09/09/21 01:40 Dose: 500 mls Documented by: Sodium Chloride (Sodium Chloride) 250 mls @ 0 mls/hr IV .Q0M [facility] Melatonin (Melatonin 5 Mg Tablet) 5 mg PO BEDTIME PRN PRN PRN Reason: INSOMNIA Last Admin: 09/08/21 21:38 Dose: 5 mg Documented by: Ondansetron HCl (Ondansetron 4 Mg/2 Ml Vial) 4 mg IV Q6HP PRN PRN Reason: NAUSEA / VOMITING Sodium Chloride (Flush Normal Saline 10 Ml) 10 ml IV BID [facility] Last Admin: 09/09/21 09:00 Dose: 10 ml Documented by: Microbiology Results 03/29/22 15:15 Blood - Blood Aerobic Blood Culture - Final Gram Neg Matt Klebsiella Pneumoniae 09/03/21 15:15 Blood - Blood Blood Culture Gram Stain - Final 09/03/21 15:15 Blood - Blood Anaerobic Blood Culture - Final No growth in 5 days. 09/03/21 15:50 Blood - Blood Aerobic Blood Culture - Final Gram Neg Matt Klebsiella Pneumoniae 09/03/21 15:50 Blood - Blood Blood Culture Gram Stain - Final 09/03/21 15:50 Blood - Blood Anaerobic Blood Culture - Final No growth in 5 days. 09/03/21 16:00 Clean Catch Urine [place] Count - Final >100,000 CFU/ML. 09/03/21 16:00 Clean Catch Urine - Final Klebsiella Pneumoniae Enterococcus Faecalis Assessment/ Plan: Nephrology No dyspnea No chest pain No acute events overnight Vitals, medications, blood work and imaging reviewed in the chart. General: Oriented x3, Cooperative HEENT: Atraumatic Neck: Supple Respiratory: Normal air movement Cardiovascular: Regular rate/rhythm, Edema Gastrointestinal: Soft and benign, Non-distended Musculoskeletal: No clubbing Integumentary: No rashes, No cyanosis Neurological: Normal speech, Abnormal strength, Abnormal tone, Abnormal reflexes Laboratory Data (last 24 hrs) 09/03/21 15:31: Sodium Cancelled, Potassium Cancelled, BUN Cancelled, Creatinine Cancelled, Glucose Cancelled, Total Bilirubin Cancelled, AST Cancelled, ALT Cancelled, Alkaline Phosphatase Cancelled 09/03/21 15:15: WBC 25.6 H* D, Hgb 10.5 L, Hct 31.8 L, Plt Count 312 09/03/21 15:15: Sodium 137, Potassium 3.7, BUN 63 H D, Creatinine 2.70 H D, Glucose 76, Total Bilirubin 2.0 H, AST 5303 H* D, ALT 2592 H* D, Alkaline Phosphatase 149 H 09/03/21 05:00: Uric Acid Cancelled Imagings Data: EXAM DESCRIPTION: US - Abdomen Exam Limited - 09/04/2021 5:45 am CLINICAL HISTORY: Eval solitary kidney (right) ARF, Liver (shock) COMPARISON: Abdomen Pelvis Wo Contrast dated 01/14/2016; Chest Abd Pelvis Wo Con dated 09/03/2021 FINDINGS: The liver demonstrates diffuse fatty infiltration.Simple appearing cyst in the right hepatic lobe measuring up to 2.6 cm with increased through transmission. The right kidney is poorly visualized. No hydronephrosis is seen.No evidence of portal vein thrombosis. Cholecystectomy. IMPRESSION: 1. Hepatic steatosis. 2. Right hepatic lobe cyst. 3. Limited visualization of the right kidney. Severe hydronephrosis not visualized. Correlating with the CT from 09/03/2021, no hydronephrosis was present on 09/03/2021. EXAM DESCRIPTION: CT - Chest Abd Pelvis Wo Con - 09/03/2021 6:41 pm CLINICAL HISTORY: Chest and abdomen pain. septic shock, ARF, Acute hepatitis, abdominal pain/chest pa COMPARISON: Chest For Pe Angio dated 08/30/2021 TECHNIQUE: A limited noncontrast study was performed. All CT scans are performed using dose optimization technique as appropriate and may include automated exposure control or mA/KV adjustment according to patient size. FINDINGS: The lung mar appear emphysematous with areas of linear scarring in the left apex.No pleural or pericardial effusion.No intrathoracic adenopathy The liver appears normal size. 3.6 cm cyst is suspected anterior right lobe. No intra or extrahepatic biliary tree dilatation is seen. The spleen, pancreas and adrenal glands are normal. Left nephrectomy noted. Punctate calculi calices of the right kidney without hydronephrosis. No bowel obstruction, free air, free fluid or abscess. Nonvisualized appendix. Moderate stool retained throughout the colon to No pathologic lymphadenopathy in the abdomen or pelvis. There is evidence of an oblique fracture involving the proximal left femur. IMPRESSION: There is evidence of an oblique fracture of the proximal left femur. Moderate stool is retained throughout the colon. Tiny punctate right renal calculi without hydronephrosis. EXAM DESCRIPTION: RAD - Chest Single View - 09/03/2021 4:13 pm CLINICAL HISTORY: CHEST PAIN Chest pain. COMPARISON: Chest Single View dated 08/30/2021; Chest Single View dated 06/03/2019; Chest Single View dated 08/07/2016; Chest Single View dated 01/14/2016 FINDINGS: Portable technique limits examination quality. Moderate bilateral pulmonary opacities are present, essentially unchanged since comparative study. This likely represents pulmonary edema or infection/ pneumonia. The heart is mildly enlarged in size. No displaced fractures. Conclusions/Impression: ILANA likely due to hypovolemia/ sepsis CKD III with proteinuria Left nephrectomy -No NSAIDs Hypokalemia -Replete potassium prn Acidosis, resolved HypoPO4 -Replete PO4 prn Hyperuricemia Hip Edema -Start HCTZ 12.5mg daily IFG -No sugar diet Acute hepatitis likely due to shock -Monitor LFT Moderate malnutrition -Encourage nutrition Anemia in chronic illness -Monitor H&H -Plan for PRBCs today Acute infective cystitis Sepsis/ Septic shock -Contnue Abx Case reviewed with Dr. Samson
[2021-09-09] MEDS: hydroCHLOROthiazide 12.5 MG CAP PO SCH (17:57)
[2021-09-10] MEDS: VANCOMYCIN 2 GM in NA CHLORIDE 0.9% 500 ML IV SCH (02:00)
[2021-09-10] MEDS: HYDROCODONE/APAP 10/325 TAB PO PRN ×3 (04:33→20:23)
[2021-09-10] MEDS ORDERED: VANCOMYCIN 2 GM in NA CHLORIDE 0.9% 500 ML IV SCH (06:00)
[2021-09-10 06:10] LABS: Absolute Lymphocytes (CBC) 2.1 K/uL (0.7-4.9); Hematocrit 28.8 % (39.6-49.0); Lymphocytes % 16.8 % (15.3-44.8); MPV 7.8 fL (7.6-11.3)
[2021-09-10 06:33] LABS: Albumin 2.1 g/dL (3.4-5.0); Magnesium 2.2 mg/dL (1.8-2.4); Phosphorus 3.4 mg/dL (2.5-4.9); Potassium 4.4 mmol/L (3.5-5.1); Protein, Total 6.3 g/dL (6.4-8.2)
[2021-09-10 08:57] LABS: Hematocrit 29.6 % (39.6-49.0)
[2021-09-10] MEDS: hydroCHLOROthiazide 12.5 MG CAP PO SCH (10:11)
[2021-09-10] MEDS: VITAMIN D 5,000 UNIT CAP PO SCH (10:11)
[2021-09-10] MEDS: HEPARIN 5000 UNIT/ML 1 ML VIAL SQ SCH ×2 (10:11→20:23)
[2021-09-10] MEDS: GABAPENTIN 300 MG CAP PO SCH ×3 (10:11→20:23)
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
--- NOTE | 2021-09-10 11:21 | P.PN ---
Subjective Date of Service: 09/10/21 Primary Care Provider: FADIA Chief Complaint: Sepsis Still having low-grade fever, repeat urine culture/urine analysis pending. Patient states that he has not had a bowel movement since admission. Recommend starting laxative. Review of Systems 10-point ROS is otherwise unremarkable Physical Examination - Vital Signs Temperature: 97.9 F Blood Pressure: 156/73 Pulse: 80 Respirations: 18 Pulse Ox (%): 100 - Studies Active Medications Acetaminophen (Acetaminophen 500 Mg Tab) 500 mg PO Q8HP PRN PRN Reason: TEMP > 100.4' F Last Admin: 09/07/21 20:03 Dose: 500 mg Documented by: Hydrocodone Bitart/Acetaminophen (Hydrocodone/Apap 10/325 Tab) 1 tab PO Q6H PRN PRN Reason: Pain scale 5-7 (Moderate) Last Admin: 09/10/21 04:33 Dose: 1 tab Documented by: Cholecalciferol (Vitamin D 5,000 Unit Cap) 5,000 unit PO DAILY [facility] Last Admin: 09/10/21 10:11 Dose: 5,000 unit Documented by: Gabapentin (Gabapentin 300 Mg Cap) 300 mg PO TID [facility] Last Admin: 09/10/21 10:11 Dose: 300 mg Documented by: Heparin Sodium (Porcine) (Heparin 5000 Unit/Ml 1 Ml Vial) 5,000 unit SQ Q12HR [facility] Last Admin: 09/10/21 10:11 Dose: 5,000 unit Documented by: Hydrochlorothiazide (Hydrochlorothiazide 12.5 Mg Cap) 12.5 mg PO DAILY [facility] Last Admin: 09/10/21 10:11 Dose: 12.5 mg Documented by: Levofloxacin/Dextrose (Levaquin 750 Mg/150 Ml Ivpb (Premix)) 750 mg in 150 mls @ 100 mls/hr IV Q24H [facility]; Protocol Last Admin: 09/09/21 16:50 Dose: 150 mls Documented by: Sodium Chloride (Sodium Chloride) 250 mls @ 0 mls/hr IV .Q0M [facility] Vancomycin HCl 2 gm/ Sodium (Chloride) 500 mls @ 250 mls/hr IV Q24H [facility] Melatonin (Melatonin 5 Mg Tablet) 5 mg PO BEDTIME PRN PRN PRN Reason: INSOMNIA Last Admin: 09/08/21 21:38 Dose: 5 mg Documented by: Ondansetron HCl (Ondansetron 4 Mg/2 Ml Vial) 4 mg IV Q6HP PRN PRN Reason: NAUSEA / VOMITING Sodium Chloride (Flush Normal Saline 10 Ml) 10 ml IV BID [facility] Last Admin: 09/10/21 09:00 Dose: Not Given Documented by: Assessment And Plan - Plan Physical Exam: General: Alert, In no apparent distress, Obese HEENT: Atraumatic, Normocephalic Neck: Supple, JVD not distended Respiratory: Clear to auscultation bilaterally, Normal air movement Cardiovascular: No edema, Regular rate/rhythm Capillary refill: <2 Seconds Gastrointestinal: Soft and benign Integumentary: No rashes, No breakdown Conclusions/Impression: Antibiotics: vancomcyin: 09/09-current Levaquin: 13current Vancomycin: Assessment/plan Urosepsis -Blood cultures growing Klebsiella sensitive to Levaquin Urine culture growing Klebsiella and Enterococcus faecalis. Enterococcus faecalis is resistant to Levaquin, as such vancomycin has been added to antibiotic regimen. CT abdomen pelvis showed nonobstructing right kidney stone. Patient may benefit from outpatient urology consultation. Oblique fracture of proximal left femur Ortho consulted. Opted for nonsurgical approach. Leukocytosis -Repeat urine analysis and urine culture pending. Continue to trend. Pneumonia? -Chest x-ray showed bilateral pulmonary opacities representing edema versus inflammation/infection. Lungs clear to auscultation, patient aerating well on room air. Low clinical suspicion for pneumonia. Plan of care discussed with Dr. Pandya Thank you for consultation
[2021-09-10] MEDS: Levofloxacin 750mg IV 750 MG/150 ML BAG IV SCH (16:11)
--- NOTE | 2021-09-10 20:23 | P.PN ---
Date of Service: 09/10/21 Vital Signs Temp Pulse Resp BP Pulse Ox 98.3 F 80 20 145/77 H 100 09/10/21 16:00 09/10/21 16:00 09/10/21 16:00 09/10/21 16:00 09/10/21 16:00 Medications Acetaminophen (Acetaminophen 500 Mg Tab) 500 mg PO Q8HP PRN PRN Reason: TEMP > 100.4' F Last Admin: 09/07/21 20:03 Dose: 500 mg Documented by: Hydrocodone Bitart/Acetaminophen (Hydrocodone/Apap 10/325 Tab) 1 tab PO Q6H PRN PRN Reason: Pain scale 5-7 (Moderate) Last Admin: 09/10/21 13:29 Dose: 1 tab Documented by: Cholecalciferol (Vitamin D 5,000 Unit Cap) 5,000 unit PO DAILY [facility] Last Admin: 09/10/21 10:11 Dose: 5,000 unit Documented by: Gabapentin (Gabapentin 300 Mg Cap) 300 mg PO TID [facility] Last Admin: 09/10/21 13:29 Dose: 300 mg Documented by: Heparin Sodium (Porcine) (Heparin 5000 Unit/Ml 1 Ml Vial) 5,000 unit SQ Q12HR [facility] Last Admin: 09/10/21 10:11 Dose: 5,000 unit Documented by: Hydrochlorothiazide (Hydrochlorothiazide 12.5 Mg Cap) 12.5 mg PO DAILY [facility] Last Admin: 09/10/21 10:11 Dose: 12.5 mg Documented by: Levofloxacin/Dextrose (Levaquin 750 Mg/150 Ml Ivpb (Premix)) 750 mg in 150 mls @ 100 mls/hr IV Q24H [facility]; Protocol Last Admin: 09/10/21 16:11 Dose: 150 mls Documented by: Sodium Chloride (Sodium Chloride) 250 mls @ 0 mls/hr IV .Q0M [facility] Vancomycin HCl 2 gm/ Sodium (Chloride) 500 mls @ 250 mls/hr IV Q24H [facility] Melatonin (Melatonin 5 Mg Tablet) 5 mg PO BEDTIME PRN PRN PRN Reason: INSOMNIA Last Admin: 09/08/21 21:38 Dose: 5 mg Documented by: Ondansetron HCl (Ondansetron 4 Mg/2 Ml Vial) 4 mg IV Q6HP PRN PRN Reason: NAUSEA / VOMITING Sodium Chloride (Flush Normal Saline 10 Ml) 10 ml IV BID [facility] Last Admin: 09/10/21 09:00 Dose: Not Given Documented by: Microbiology Results 09/03/21 15:15 Blood - Blood Aerobic Blood Culture - Final Gram Neg Matt Klebsiella Pneumoniae 09/03/21 15:15 Blood - Blood Blood Culture Gram Stain - Final 09/03/21 15:15 Blood - Blood Anaerobic Blood Culture - Final No growth in 5 days. 09/03/21 15:50 Blood - Blood Aerobic Blood Culture - Final Gram Neg Matt Klebsiella Pneumoniae 09/03/21 15:50 Blood - Blood Blood Culture Gram Stain - Final 09/03/21 15:50 Blood - Blood Anaerobic Blood Culture - Final No growth in 5 days. 09/03/21 16:00 Clean Catch Urine [place] Count - Final >100,000 CFU/ML. 09/03/21 16:00 Clean Catch Urine - Final Klebsiella Pneumoniae Enterococcus Faecalis Assessment/ Plan: Nephrology No dyspnea No chest pain No acute events overnight Vitals, medications, blood work and imaging reviewed in the chart. General: Oriented x3, Cooperative HEENT: Atraumatic Neck: Supple Respiratory: Normal air movement Cardiovascular: Regular rate/rhythm, Edema Gastrointestinal: Soft and benign, Non-distended Musculoskeletal: No clubbing Integumentary: No rashes, No cyanosis Neurological: Normal speech, Abnormal strength, Abnormal tone, Abnormal reflexes Laboratory Data (last 24 hrs) 09/03/21 15:31: Sodium Cancelled, Potassium Cancelled, BUN Cancelled, Creatinine Cancelled, Glucose Cancelled, Total Bilirubin Cancelled, AST Cancelled, ALT Cancelled, Alkaline Phosphatase Cancelled 09/03/21 15:15: WBC 25.6 H* D, Hgb 10.5 L, Hct 31.8 L, Plt Count 312 09/03/21 15:15: Sodium 137, Potassium 3.7, BUN 63 H D, Creatinine 2.70 H D, Glucose 76, Total Bilirubin 2.0 H, AST 5303 H* D, ALT 2592 H* D, Alkaline Phosphatase 149 H 09/03/21 05:00: Uric Acid Cancelled Imagings Data: EXAM DESCRIPTION: US - Abdomen Exam Limited - 09/04/2021 5:45 am CLINICAL HISTORY: Eval solitary kidney (right) ARF, Liver (shock) COMPARISON: Abdomen Pelvis Wo Contrast dated 01/14/2016; Chest Abd Pelvis Wo Con dated 09/03/2021 FINDINGS: The liver demonstrates diffuse fatty infiltration.Simple appearing cyst in the right hepatic lobe measuring up to 2.6 cm with increased through transmission. The right kidney is poorly visualized. No hydronephrosis is seen.No evidence of portal vein thrombosis. Cholecystectomy. IMPRESSION: 1. Hepatic steatosis. 2. Right hepatic lobe cyst. 3. Limited visualization of the right kidney. Severe hydronephrosis not visualized. Correlating with the CT from 09/03/2021, no hydronephrosis was present on 09/03/2021. EXAM DESCRIPTION: CT - Chest Abd Pelvis Wo Con - 09/03/2021 6:41 pm CLINICAL HISTORY: Chest and abdomen pain. septic shock, ARF, Acute hepatitis, abdominal pain/chest pa COMPARISON: Chest For Pe Angio dated 08/30/2021 TECHNIQUE: A limited noncontrast study was performed. All CT scans are performed using dose optimization technique as appropriate and may include automated exposure control or mA/KV adjustment according to patient size. FINDINGS: The lung mar appear emphysematous with areas of linear scarring in the left apex.No pleural or pericardial effusion.No intrathoracic adenopathy The liver appears normal size. 3.6 cm cyst is suspected anterior right lobe. No intra or extrahepatic biliary tree dilatation is seen. The spleen, pancreas and adrenal glands are normal. Left nephrectomy noted. Punctate calculi calices of the right kidney without hydronephrosis. No bowel obstruction, free air, free fluid or abscess. Nonvisualized appendix. Moderate stool retained throughout the colon to No pathologic lymphadenopathy in the abdomen or pelvis. There is evidence of an oblique fracture involving the proximal left femur. IMPRESSION: There is evidence of an oblique fracture of the proximal left femur. Moderate stool is retained throughout the colon. Tiny punctate right renal calculi without hydronephrosis. EXAM DESCRIPTION: RAD - Chest Single View - 09/03/2021 4:13 pm CLINICAL HISTORY: CHEST PAIN Chest pain. COMPARISON: Chest Single View dated 08/30/2021; Chest Single View dated 06/03/2019; Chest Single View dated 08/07/2016; Chest Single View dated 01/14/2016 FINDINGS: Portable technique limits examination quality. Moderate bilateral pulmonary opacities are present, essentially unchanged since comparative study. This likely represents pulmonary edema or infection/ pneumonia. The heart is mildly enlarged in size. No displaced fractures. Conclusions/Impression: ILANA likely due to hypovolemia/ sepsis CKD III with proteinuria Left nephrectomy -No NSAIDs Hypokalemia -Replete potassium prn Acidosis, resolved HypoPO4 -Replete PO4 prn Hyperuricemia Hip Edema -Continue HCTZ 12.5mg daily IFG -No sugar diet Acute hepatitis likely due to shock -Monitor LFT Moderate malnutrition -Encourage nutrition Anemia in chronic illness -Monitor H&H -Plan for PRBCs today Acute infective cystitis Sepsis/ Septic shock -Contnue Abx
[2021-09-11] MEDS: HYDROCODONE/APAP 10/325 TAB PO PRN ×3 (03:17→19:12)
[2021-09-11] MEDS: hydroCHLOROthiazide 12.5 MG CAP PO SCH (09:50)
[2021-09-11] MEDS: GABAPENTIN 300 MG CAP PO SCH ×3 (09:50→21:01)
[2021-09-11] MEDS: HEPARIN 5000 UNIT/ML 1 ML VIAL SQ SCH ×2 (09:50→21:01)
[2021-09-11] MEDS: VITAMIN D 5,000 UNIT CAP PO SCH (09:50)
[2021-09-11] MEDS: VANCOMYCIN 2 GM in NA CHLORIDE 0.9% 500 ML IV SCH (10:12)
--- NOTE | 2021-09-11 11:23 | P.PN ---
Subjective Date of Service: 09/11/21 Primary Care Provider: [place] Chief Complaint: Sepsis Patient seen and examined at bedside, vitals stable. Review of Systems 10-point ROS is otherwise unremarkable Physical Examination - Vital Signs Temperature: 97.6 F Blood Pressure: 142/71 Pulse: 73 Respirations: 16 Pulse Ox (%): 97 - Studies Laboratory Last Values WBC 25.6 K/uL (4.3-10.9) H* D 09/03/21 15:15 RBC 3.31 M/uL (4.33-5.43) L 09/03/21 15:15 Hgb 10.5 g/dL (13.6-17.9) L 09/03/21 15:15 Hct 31.8 % (39.6-49.0) L 09/03/21 15:15 MCV 96.3 fL (80-100) 09/03/21 15:15 MCH 31.8 pg (27.0-35.0) 09/03/21 15:15 MCHC 33.0 g/dL (32.0-36.0) 09/03/21 15:15 RDW 15.1 % (12.1-15.2) 09/03/21 15:15 Plt Count 312 K/uL (152-406) 09/03/21 15:15 MPV 8.3 fL (7.6-11.3) 09/03/21 15:15 Neutrophils % 88.5 % (41.7-73.7) H 09/03/21 15:15 Lymphocytes % 6.2 % (15.3-44.8) L 09/03/21 15:15 Monocytes % 4.4 % (3.3-12.3) 09/03/21 15:15 Eosinophils % 0.4 % (0-4.4) 09/03/21 15:15 Basophils % 0.5 % (0-1.3) 09/03/21 15:15 Absolute Neutrophils 22.7 K/uL (1.8-8.0) H 09/03/21 15:15 Segmented Neutrophils 84 % (40-80) H 09/03/21 15:15 Band Neutrophils 2 % (0-1) H 09/03/21 15:15 Absolute Lymphocytes 1.6 K/uL (0.7-4.9) 09/03/21 15:15 Lymphocytes 5 % (15-42) L 09/03/21 15:15 Monocytes 4 % (0-10) 09/03/21 15:15 Absolute Monocytes 1.1 K/uL (0.1-1.3) 09/03/21 15:15 Absolute Eosinophils 0.1 K/uL (0-0.5) 09/03/21 15:15 Absolute Basophils 0.1 K/uL (0-0.5) 09/03/21 15:15 Toxic Granulation 2+ 09/03/21 15:15 Platelet Estimate Adeq 09/03/21 15:15 Morphology Comment Not seen (NOT SEEN) 09/03/21 15:15 Sodium Cancelled 09/03/21 15:31 Potassium Cancelled 09/03/21 15:31 Chloride Cancelled 09/03/21 15:31 Carbon Dioxide Cancelled 09/03/21 15:31 BUN Cancelled 09/03/21 15:31 Creatinine Cancelled 09/03/21 15:31 Estimated GFR Cancelled 09/03/21 15:31 Glucose Cancelled 09/03/21 15:31 Lactic Acid 3.9 mmol/L (0.4-2.0) H 09/03/21 15:50 Uric Acid Cancelled 09/03/21 05:00 Calcium Cancelled 09/03/21 15:31 Total Bilirubin Cancelled 09/03/21 15:31 AST Cancelled 09/03/21 15:31 ALT Cancelled 09/03/21 15:31 Alkaline Phosphatase Cancelled 09/03/21 15:31 Troponin I High Sens 4.4 pg/mL (<58.9) 09/03/21 15:15 Serum Total Protein Cancelled 09/03/21 15:31 Albumin Cancelled 09/03/21 15:31 Globulin Cancelled 09/03/21 15:31 Albumin/Globulin Ratio Cancelled 09/03/21 15:31 Urine pH 6.0 (5.0-7.0) 09/03/21 16:12 Ur Specific [place] 1.020 (1.005-1.030) 09/03/21 16:12 Glucose (UA)(Auto) Negative (Negative) 09/03/21 16:12 Urine Ketones Trace (Negative) H 09/03/21 16:12 Urine Blood 2+ (Negative) H 09/03/21 16:12 Urine Nitrite Negative (Negative) 09/03/21 16:12 Ur Leukocyte Esterase 1+ (Negative) H 09/03/21 16:12 Urine RBC 5-10 /HPF (NONE SEEN) H 09/03/21 16:00 Urine WBC 20-50 /HPF (<5) H 09/03/21 16:00 Ur Squamous Epith Cells <5 /HPF (NONE SEEN) 09/03/21 16:00 Urine Bacteria Loaded /HPF (NONE SEEN) H 09/03/21 16:00 Urine Culture Reflexed Reflexed 09/03/21 16:00 Urine Total Protein 2+ (Negative) H 09/03/21 16:12 Influenza Type A RNA Negative (NEGATIVE) 09/03/21 13:28 Influenza Type B RNA Negative (NEGATIVE) 09/03/21 13:28 SARS-CoV-2 RNA (RT-PCR) Negative (NEGATIVE) 09/03/21 13:28 Assessment And Plan - Plan Physical Exam: General: Alert, In no apparent distress, Obese HEENT: Atraumatic, Normocephalic Neck: Supple, JVD not distended Respiratory: Clear to auscultation bilaterally, Normal air movement Cardiovascular: No edema, Regular rate/rhythm Capillary refill: <2 Seconds Gastrointestinal: Soft and benign Integumentary: No rashes, No breakdown Conclusions/Impression: Antibiotics: vancomcyin: 4-current Levaquin: 3/13current Vancomycin: Assessment/plan Urosepsis -Blood cultures growing Klebsiella sensitive to Levaquin Urine culture growing Klebsiella and Enterococcus faecalis. Enterococcus faecalis is resistant to Levaquin, as such vancomycin has been added to antibiotic regimen. Recommend de-escalating IV vancomycin to Macrobid. CT abdomen pelvis showed nonobstructing right kidney stone. Patient may benefit from outpatient urology consultation. Oblique fracture of proximal left femur Ortho consulted. Opted for nonsurgical approach. Leukocytosis -Repeat urine analysis and urine culture pending. Continue to trend. Pneumonia? -Chest x-ray showed bilateral pulmonary opacities representing edema versus inflammation/infection. Lungs clear to auscultation, patient aerating well on room air. Low clinical suspicion for pneumonia. Plan of care discussed with Dr. Pandya Thank you for consultation
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
[2021-09-11] MEDS: levoFLOXacin 750 MG TAB PO SCH (15:13)
--- NOTE | 2021-09-11 19:39 | P.PN ---
Date of Service: 09/11/21 Vital Signs Temp Pulse Resp BP Pulse Ox 97.4 F 73 16 146/74 H 97 09/11/21 13:44 09/11/21 13:44 09/11/21 19:12 09/11/21 13:44 09/11/21 13:44 Medications Acetaminophen (Acetaminophen 500 Mg Tab) 500 mg PO Q8HP PRN PRN Reason: TEMP > 100.4' F Last Admin: 09/07/21 20:03 Dose: 500 mg Documented by: Hydrocodone Bitart/Acetaminophen (Hydrocodone/Apap 10/325 Tab) 1 tab PO Q6H PRN PRN Reason: Pain scale 5-7 (Moderate) Last Admin: 09/11/21 19:12 Dose: 1 tab Documented by: Cholecalciferol (Vitamin D 5,000 Unit Cap) 5,000 unit PO DAILY [facility] Last Admin: 09/11/21 09:50 Dose: 5,000 unit Documented by: Gabapentin (Gabapentin 300 Mg Cap) 300 mg PO TID [facility] Last Admin: 09/11/21 14:40 Dose: 300 mg Documented by: Heparin Sodium (Porcine) (Heparin 5000 Unit/Ml 1 Ml Vial) 5,000 unit SQ Q12HR [facility] Last Admin: 09/11/21 09:50 Dose: 5,000 unit Documented by: Hydrochlorothiazide (Hydrochlorothiazide 12.5 Mg Cap) 12.5 mg PO DAILY [facility] Last Admin: 09/11/21 09:50 Dose: 12.5 mg Documented by: Sodium Chloride (Sodium Chloride) 250 mls @ 0 mls/hr IV .Q0M [facility] Vancomycin HCl 2 gm/ Sodium (Chloride) 500 mls @ 250 mls/hr IV Q24H [facility] Last Admin: 09/11/21 10:12 Dose: 500 mls Documented by: Levofloxacin (Levofloxacin 750 Mg Tab) 750 mg PO DAILY [facility] Stop: 09/20/21 09:01 Last Admin: 09/11/21 15:13 Dose: 750 mg Documented by: Melatonin (Melatonin 5 Mg Tablet) 5 mg PO BEDTIME PRN PRN PRN Reason: INSOMNIA Last Admin: 09/08/21 21:38 Dose: 5 mg Documented by: Ondansetron HCl (Ondansetron 4 Mg/2 Ml Vial) 4 mg IV Q6HP PRN PRN Reason: NAUSEA / VOMITING Sodium Chloride (Flush Normal Saline 10 Ml) 10 ml IV BID [facility] Last Admin: 09/11/21 09:00 Dose: 10 ml Documented by: Microbiology Results 09/03/21 15:15 Blood - Blood Aerobic Blood Culture - Final Gram Neg Matt Klebsiella Pneumoniae 09/03/21 15:15 Blood - Blood Blood Culture Gram Stain - Final 09/03/21 15:15 Blood - Blood Anaerobic Blood Culture - Final No growth in 5 days. 09/03/21 15:50 Blood - Blood Aerobic Blood Culture - Final Gram Neg Matt Klebsiella Pneumoniae 09/03/21 15:50 Blood - Blood Blood Culture Gram Stain - Final 09/03/21 15:50 Blood - Blood Anaerobic Blood Culture - Final No growth in 5 days. 09/03/21 16:00 Clean Catch Urine [place] Count - Final >100,000 CFU/ML. 09/03/21 16:00 Clean Catch Urine - Final Klebsiella Pneumoniae Enterococcus Faecalis Assessment/ Plan: Nephrology No dyspnea No chest pain No acute events overnight Vitals, medications, blood work and imaging reviewed in the chart. General: Oriented x3, Cooperative HEENT: Atraumatic Neck: Supple Respiratory: Normal air movement Cardiovascular: Regular rate/rhythm, Edema Gastrointestinal: Soft and benign, Non-distended Musculoskeletal: No clubbing Integumentary: No rashes, No cyanosis Neurological: Normal speech, Abnormal strength, Abnormal tone, Abnormal reflexes Laboratory Data (last 24 hrs) 09/03/21 15:31: Sodium Cancelled, Potassium Cancelled, BUN Cancelled, Creatinine Cancelled, Glucose Cancelled, Total Bilirubin Cancelled, AST Cancelled, ALT Cancelled, Alkaline Phosphatase Cancelled 09/03/21 15:15: WBC 25.6 H* D, Hgb 10.5 L, Hct 31.8 L, Plt Count 312 09/03/21 15:15: Sodium 137, Potassium 3.7, BUN 63 H D, Creatinine 2.70 H D, Glucose 76, Total Bilirubin 2.0 H, AST 5303 H* D, ALT 2592 H* D, Alkaline Phosphatase 149 H 09/03/21 05:00: Uric Acid Cancelled Imagings Data: EXAM DESCRIPTION: US - Abdomen Exam Limited - 09/04/2021 5:45 am CLINICAL HISTORY: Eval solitary kidney (right) ARF, Liver (shock) COMPARISON: Abdomen Pelvis Wo Contrast dated 01/14/2016; Chest Abd Pelvis Wo Con dated 09/03/2021 FINDINGS: The liver demonstrates diffuse fatty infiltration.Simple appearing cyst in the right hepatic lobe measuring up to 2.6 cm with increased through transmission. The right kidney is poorly visualized. No hydronephrosis is seen.No evidence of portal vein thrombosis. Cholecystectomy. IMPRESSION: 1. Hepatic steatosis. 2. Right hepatic lobe cyst. 3. Limited visualization of the right kidney. Severe hydronephrosis not visualized. Correlating with the CT from 09/03/2021, no hydronephrosis was present on 09/03/2021. EXAM DESCRIPTION: CT - Chest Abd Pelvis Wo Con - 09/03/2021 6:41 pm CLINICAL HISTORY: Chest and abdomen pain. septic shock, ARF, Acute hepatitis, abdominal pain/chest pa COMPARISON: Chest For Pe Angio dated 08/30/2021 TECHNIQUE: A limited noncontrast study was performed. All CT scans are performed using dose optimization technique as appropriate and may include automated exposure control or mA/KV adjustment according to patient size. FINDINGS: The lung mar appear emphysematous with areas of linear scarring in the left apex.No pleural or pericardial effusion.No intrathoracic adenopathy The liver appears normal size. 3.6 cm cyst is suspected anterior right lobe. No intra or extrahepatic biliary tree dilatation is seen. The spleen, pancreas and adrenal glands are normal. Left nephrectomy noted. Punctate calculi calices of the right kidney without hydronephrosis. No bowel obstruction, free air, free fluid or abscess. Nonvisualized appendix. Moderate stool retained throughout the colon to No pathologic lymphadenopathy in the abdomen or pelvis. There is evidence of an oblique fracture involving the proximal left femur. IMPRESSION: There is evidence of an oblique fracture of the proximal left femur. Moderate stool is retained throughout the colon. Tiny punctate right renal calculi without hydronephrosis. EXAM DESCRIPTION: RAD - Chest Single View - 09/03/2021 4:13 pm CLINICAL HISTORY: CHEST PAIN Chest pain. COMPARISON: Chest Single View dated 08/30/2021; Chest Single View dated 06/03/2019; Chest Single View dated 08/07/2016; Chest Single View dated 01/14/2016 FINDINGS: Portable technique limits examination quality. Moderate bilateral pulmonary opacities are present, essentially unchanged since comparative study. This likely represents pulmonary edema or infection/ pneumonia. The heart is mildly enlarged in size. No displaced fractures. Conclusions/Impression: ILANA likely due to hypovolemia/ sepsis CKD III with proteinuria Left nephrectomy -No NSAIDs Hypokalemia -Replete potassium prn Acidosis, resolved HypoPO4 -Replete PO4 prn -Encourage nutrition Hyperuricemia Hip Edema -Continue HCTZ 12.5mg daily IFG -No sugar diet Acute hepatitis likely due to shock -Monitor LFT Moderate malnutrition -Encourage nutrition Anemia in chronic illness -Monitor H&H -Plan for PRBCs today Acute infective cystitis Sepsis/ Septic shock -Contnue Abx
[2021-09-12] MEDS: HYDROCODONE/APAP 10/325 TAB PO PRN ×4 (01:20→20:48)
[2021-09-12] MEDS ORDERED: HYDROMORPHONE HCL 1 MG/ML INJ IV ONE (03:38)
[2021-09-12 06:32] LABS: Absolute Lymphocytes (CBC) 1.6 K/uL (0.7-4.9); Hematocrit 44.1 % (39.6-49.0); Lymphocytes % 15.4 % (15.3-44.8); MPV 8.4 fL (7.6-11.3); RBC Red Blood Cell Count 4.57 M/uL (4.33-5.43)
[2021-09-12 07:28] LABS: Albumin 2.5 g/dL (3.4-5.0); Bilirubin Total 1.1 mg/dL (0.2-1.0); Potassium 4.1 mmol/L (3.5-5.1); Protein, Total 7.9 g/dL (6.4-8.2)
[2021-09-12] MEDS: VANCOMYCIN 2 GM in NA CHLORIDE 0.9% 500 ML IV SCH ×2 (09:21→10:00)
[2021-09-12] MEDS: hydroCHLOROthiazide 12.5 MG CAP PO SCH (09:25)
[2021-09-12] MEDS: GABAPENTIN 300 MG CAP PO SCH ×3 (09:25→20:48)
[2021-09-12] MEDS: VITAMIN D 5,000 UNIT CAP PO SCH (09:26)
[2021-09-12] MEDS: levoFLOXacin 750 MG TAB PO SCH (09:26)
[2021-09-12] MEDS: HEPARIN 5000 UNIT/ML 1 ML VIAL SQ SCH ×2 (09:26→20:49)
--- NOTE | 2021-09-12 09:36 | PN ---
This is clarification for interactions that had for Mr. Leyva. There are some questions from his [facility] care physician. I did speak with Mr. Leyva again on Thursday. He is clinically improved. We h ad a long discussion regarding risks, benefits, and alternatives to different methods of treating his femur fracture. After this discussion, it is selected that we will continue to treat this nonoperat ively. At this time, I believe he can go head and pursue transfer training as [facility] He really only needs to follow up with me with any problems. We would continue to treat th is as this was a femur fracture with regard to anticoagulation and other issues. Otherwise, all of h is questions have been answered. /ANTONINA Voice ID: [id number] Report ID: [id number]
--- NOTE | 2021-09-12 10:36 | P.PN ---
Subjective Date of Service: 09/12/21 Primary Care Provider: [place] Chief Complaint: Sepsis Patient seen and examined at bedside, patient frustrated with inability for us to transfer him to [facility]. Review of Systems 10-point ROS is otherwise unremarkable Physical Examination - Vital Signs Temperature: 98.3 F Blood Pressure: 133/63 Pulse: 78 Respirations: 18 Pulse Ox (%): 99 - Studies Laboratory Last Values WBC 25.6 K/uL (4.3-10.9) H* D 09/03/21 15:15 RBC 3.31 M/uL (4.33-5.43) L 09/03/21 15:15 Hgb 10.5 g/dL (13.6-17.9) L 09/03/21 15:15 Hct 31.8 % (39.6-49.0) L 09/03/21 15:15 MCV 96.3 fL (80-100) 09/03/21 15:15 MCH 31.8 pg (27.0-35.0) 09/03/21 15:15 MCHC 33.0 g/dL (32.0-36.0) 09/03/21 15:15 RDW 15.1 % (12.1-15.2) 09/03/21 15:15 Plt Count 312 K/uL (152-406) 09/03/21 15:15 MPV 8.3 fL (7.6-11.3) 09/03/21 15:15 Neutrophils % 88.5 % (41.7-73.7) H 09/03/21 15:15 Lymphocytes % 6.2 % (15.3-44.8) L 09/03/21 15:15 Monocytes % 4.4 % (3.3-12.3) 09/03/21 15:15 Eosinophils % 0.4 % (0-4.4) 09/03/21 15:15 Basophils % 0.5 % (0-1.3) 09/03/21 15:15 Absolute Neutrophils 22.7 K/uL (1.8-8.0) H 09/03/21 15:15 Segmented Neutrophils 84 % (40-80) H 09/03/21 15:15 Band Neutrophils 2 % (0-1) H 09/03/21 15:15 Absolute Lymphocytes 1.6 K/uL (0.7-4.9) 09/03/21 15:15 Lymphocytes 5 % (15-42) L 09/03/21 15:15 Monocytes 4 % (0-10) 09/03/21 15:15 Absolute Monocytes 1.1 K/uL (0.1-1.3) 09/03/21 15:15 Absolute Eosinophils 0.1 K/uL (0-0.5) 09/03/21 15:15 Absolute Basophils 0.1 K/uL (0-0.5) 09/03/21 15:15 Toxic Granulation 2+ 09/03/21 15:15 Platelet Estimate Adeq 09/03/21 15:15 Morphology Comment Not seen (NOT SEEN) 09/03/21 15:15 Sodium Cancelled 09/03/21 15:31 Potassium Cancelled 09/03/21 15:31 Chloride Cancelled 09/03/21 15:31 Carbon Dioxide Cancelled 09/03/21 15:31 BUN Cancelled 09/03/21 15:31 Creatinine Cancelled 09/03/21 15:31 Estimated GFR Cancelled 09/03/21 15:31 Glucose Cancelled 09/03/21 15:31 Lactic Acid 3.9 mmol/L (0.4-2.0) H 09/03/21 15:50 Uric Acid Cancelled 09/03/21 05:00 Calcium Cancelled 09/03/21 15:31 Total Bilirubin Cancelled 09/03/21 15:31 AST Cancelled 09/03/21 15:31 ALT Cancelled 09/03/21 15:31 Alkaline Phosphatase Cancelled 09/03/21 15:31 Troponin I High Sens 4.4 pg/mL (<58.9) 09/03/21 15:15 Serum Total Protein Cancelled 09/03/21 15:31 Albumin Cancelled 09/03/21 15:31 Globulin Cancelled 09/03/21 15:31 Albumin/Globulin Ratio Cancelled 09/03/21 15:31 Urine pH 6.0 (5.0-7.0) 09/03/21 16:12 Ur Specific [place] 1.020 (1.005-1.030) 09/03/21 16:12 Glucose (UA)(Auto) Negative (Negative) 09/03/21 16:12 Urine Ketones Trace (Negative) H 09/03/21 16:12 Urine Blood 2+ (Negative) H 09/03/21 16:12 Urine Nitrite Negative (Negative) 09/03/21 16:12 Ur Leukocyte Esterase 1+ (Negative) H 09/03/21 16:12 Urine RBC 5-10 /HPF (NONE SEEN) H 09/03/21 16:00 Urine WBC 20-50 /HPF (<5) H 09/03/21 16:00 Ur Squamous Epith Cells <5 /HPF (NONE SEEN) 09/03/21 16:00 Urine Bacteria Loaded /HPF (NONE SEEN) H 09/03/21 16:00 Urine Culture Reflexed Reflexed 09/03/21 16:00 Urine Total Protein 2+ (Negative) H 09/03/21 16:12 Influenza Type A RNA Negative (NEGATIVE) 09/03/21 13:28 Influenza Type B RNA Negative (NEGATIVE) 09/03/21 13:28 SARS-CoV-2 RNA (RT-PCR) Negative (NEGATIVE) 09/03/21 13:28 Assessment And Plan - Plan Physical Exam: General: Alert, In no apparent distress, Obese HEENT: Atraumatic, Normocephalic Neck: Supple, JVD not distended Respiratory: Clear to auscultation bilaterally, Normal air movement Cardiovascular: No edema, Regular rate/rhythm Capillary refill: <2 Seconds Gastrointestinal: Soft and benign Integumentary: No rashes, No breakdown Conclusions/Impression: Antibiotics: macrobid: 09/12-current vancomcyin: 09/09-09/12 Levaquin: 09/05-09/12 Vancomycin: Assessment/plan Urosepsis -Blood cultures growing Klebsiella sensitive to Levaquin. Patient has completed 7-day course of Levaquin. Urine culture growing Klebsiella and Enterococcus faecalis. Enterococcus faecalis is resistant to Levaquin, as such vancomycin has been added to antibiotic regimen. IV vancomycin deescalated to oral Macrobid. CT abdomen pelvis showed nonobstructing right kidney stone. Patient may benefit from outpatient urology consultation. Oblique fracture of proximal left femur Ortho consulted. Opted for nonsurgical approach. Leukocytosis -Repeat urine analysis and urine culture pending. Continue to trend. Pneumonia? -Chest x-ray showed bilateral pulmonary opacities representing edema versus inflammation/infection. Lungs clear to auscultation, patient aerating well on room air. Low clinical suspicion for pneumonia. Plan of care discussed with Dr. Pandya Thank you for consultation
--- NOTE | 2021-09-12 10:44 | P.PN ---
Date of Service: 09/12/21 Vital Signs Temp Pulse Resp BP Pulse Ox 98.3 F 78 18 133/63 99 09/12/21 10:36 09/12/21 10:36 09/12/21 10:36 09/12/21 10:36 09/12/21 10:36 Medications Acetaminophen (Acetaminophen 500 Mg Tab) 500 mg PO Q8HP PRN PRN Reason: TEMP > 100.4' F Last Admin: 09/07/21 20:03 Dose: 500 mg Documented by: Hydrocodone Bitart/Acetaminophen (Hydrocodone/Apap 10/325 Tab) 1 tab PO Q6H PRN PRN Reason: Pain scale 5-7 (Moderate) Last Admin: 09/12/21 09:21 Dose: 1 tab Documented by: Cholecalciferol (Vitamin D 5,000 Unit Cap) 5,000 unit PO DAILY [facility] Last Admin: 09/12/21 09:26 Dose: 5,000 unit Documented by: Gabapentin (Gabapentin 300 Mg Cap) 300 mg PO TID [facility] Last Admin: 09/12/21 09:25 Dose: 300 mg Documented by: Heparin Sodium (Porcine) (Heparin 5000 Unit/Ml 1 Ml Vial) 5,000 unit SQ Q12HR [facility] Last Admin: 09/12/21 09:26 Dose: 5,000 unit Documented by: Hydrochlorothiazide (Hydrochlorothiazide 12.5 Mg Cap) 12.5 mg PO DAILY [facility] Last Admin: 09/12/21 09:25 Dose: 12.5 mg Documented by: Sodium Chloride (Sodium Chloride) 250 mls @ 0 mls/hr IV .Q0M [facility] Melatonin (Melatonin 5 Mg Tablet) 5 mg PO BEDTIME PRN PRN PRN Reason: INSOMNIA Last Admin: 09/08/21 21:38 Dose: 5 mg Documented by: Nitrofurantoin Macrocrystals (Nitrofuran Macro 100 Mg Cap) 100 mg PO BID [facility]; Protocol Stop: 09/15/21 11:01 Ondansetron HCl (Ondansetron 4 Mg/2 Ml Vial) 4 mg IV Q6HP PRN PRN Reason: NAUSEA / VOMITING Sodium Chloride (Flush Normal Saline 10 Ml) 10 ml IV BID [facility] Last Admin: 09/12/21 09:00 Dose: 10 ml Documented by: Microbiology Results 09/03/21 15:15 Blood - Blood Aerobic Blood Culture - Final Gram Neg Matt Klebsiella Pneumoniae 09/03/21 15:15 Blood - Blood Blood Culture Gram Stain - Final 09/03/21 15:15 Blood - Blood Anaerobic Blood Culture - Final No growth in 5 days. 09/03/21 15:50 Blood - Blood Aerobic Blood Culture - Final Gram Neg Matt Klebsiella Pneumoniae 09/03/21 15:50 Blood - Blood Blood Culture Gram Stain - Final 09/03/21 15:50 Blood - Blood Anaerobic Blood Culture - Final No growth in 5 days. 09/03/21 16:00 Clean Catch Urine [place] Count - Final >100,000 CFU/ML. 09/03/21 16:00 Clean Catch Urine - Final Klebsiella Pneumoniae Enterococcus Faecalis Assessment/ Plan: Nephrology No dyspnea No chest pain No acute events overnight Vitals, medications, blood work and imaging reviewed in the chart. General: Oriented x3, Cooperative HEENT: Atraumatic Neck: Supple Respiratory: Normal air movement Cardiovascular: Regular rate/rhythm, Edema Gastrointestinal: Soft and benign, Non-distended Musculoskeletal: No clubbing Integumentary: No rashes, No cyanosis Neurological: Normal speech, Abnormal strength, Abnormal tone, Abnormal reflexes Laboratory Data (last 24 hrs) 09/03/21 15:31: Sodium Cancelled, Potassium Cancelled, BUN Cancelled, Creatinine Cancelled, Glucose Cancelled, Total Bilirubin Cancelled, AST Cancelled, ALT Cancelled, Alkaline Phosphatase Cancelled 09/03/21 15:15: WBC 25.6 H* D, Hgb 10.5 L, Hct 31.8 L, Plt Count 312 09/03/21 15:15: Sodium 137, Potassium 3.7, BUN 63 H D, Creatinine 2.70 H D, Glucose 76, Total Bilirubin 2.0 H, AST 5303 H* D, ALT 2592 H* D, Alkaline Phosphatase 149 H 09/03/21 05:00: Uric Acid Cancelled Imagings Data: EXAM DESCRIPTION: US - Abdomen Exam Limited - 09/04/2021 5:45 am CLINICAL HISTORY: Eval solitary kidney (right) ARF, Liver (shock) COMPARISON: Abdomen Pelvis Wo Contrast dated 01/14/2016; Chest Abd Pelvis Wo Con dated 09/03/2021 FINDINGS: The liver demonstrates diffuse fatty infiltration.Simple appearing cyst in the right hepatic lobe measuring up to 2.6 cm with increased through transmission. The right kidney is poorly visualized. No hydronephrosis is seen.No evidence of portal vein thrombosis. Cholecystectomy. IMPRESSION: 1. Hepatic steatosis. 2. Right hepatic lobe cyst. 3. Limited visualization of the right kidney. Severe hydronephrosis not visualized. Correlating with the CT from 09/03/2021, no hydronephrosis was present on 09/03/2021. EXAM DESCRIPTION: CT - Chest Abd Pelvis Wo Con - 09/03/2021 6:41 pm CLINICAL HISTORY: Chest and abdomen pain. septic shock, ARF, Acute hepatitis, abdominal pain/chest pa COMPARISON: Chest For Pe Angio dated 08/30/2021 TECHNIQUE: A limited noncontrast study was performed. All CT scans are performed using dose optimization technique as appropriate and may include automated exposure control or mA/KV adjustment according to patient size. FINDINGS: The lung mar appear emphysematous with areas of linear scarring in the left apex.No pleural or pericardial effusion.No intrathoracic adenopathy The liver appears normal size. 3.6 cm cyst is suspected anterior right lobe. No intra or extrahepatic biliary tree dilatation is seen. The spleen, pancreas and adrenal glands are normal. Left nephrectomy noted. Punctate calculi calices of the right kidney without hydronephrosis. No bowel obstruction, free air, free fluid or abscess. Nonvisualized appendix. Moderate stool retained throughout the colon to No pathologic lymphadenopathy in the abdomen or pelvis. There is evidence of an oblique fracture involving the proximal left femur. IMPRESSION: There is evidence of an oblique fracture of the proximal left femur. Moderate stool is retained throughout the colon. Tiny punctate right renal calculi without hydronephrosis. EXAM DESCRIPTION: RAD - Chest Single View - 09/03/2021 4:13 pm CLINICAL HISTORY: CHEST PAIN Chest pain. COMPARISON: Chest Single View dated 08/30/2021; Chest Single View dated 06/03/2019; Chest Single View dated 08/07/2016; Chest Single View dated 01/14/2016 FINDINGS: Portable technique limits examination quality. Moderate bilateral pulmonary opacities are present, essentially unchanged since comparative study. This likely represents pulmonary edema or infection/ pneumonia. The heart is mildly enlarged in size. No displaced fractures. Conclusions/Impression: ILANA likely due to hypovolemia/ sepsis CKD III with proteinuria Left nephrectomy -No NSAIDs Hypokalemia -Replete potassium prn Acidosis, resolved HypoPO4 -Replete PO4 prn -Encourage nutrition Hyperuricemia Hip Edema -Continue HCTZ 12.5mg daily IFG -No sugar diet Acute hepatitis likely due to shock -Monitor LFT Moderate malnutrition -Encourage nutrition Anemia in chronic illness -Monitor H&H -Plan for PRBCs today Acute infective cystitis Sepsis/ Septic shock -Contnue Abx
[2021-09-12] MEDS: NITROFURAN MACRO 100 MG CAP PO SCH ×2 (11:31→20:48)
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
[2021-09-12] MEDS: MELATONIN 5 MG TABLET PO PRN (20:49)
[2021-09-13] MEDS: HYDROCODONE/APAP 10/325 TAB PO PRN ×4 (00:51→16:52)
[2021-09-13] MEDS ORDERED: NA CHLORIDE 0.9% 1,000 ML IV SCH (04:00)
[2021-09-13 04:53] VITALS: O2SAT 96
[2021-09-13] MEDS: hydroCHLOROthiazide 12.5 MG CAP PO SCH (09:26)
[2021-09-13] MEDS: NITROFURAN MACRO 100 MG CAP PO SCH (09:27)
[2021-09-13] MEDS: GABAPENTIN 300 MG CAP PO SCH ×2 (09:27→13:51)
[2021-09-13] MEDS: HEPARIN 5000 UNIT/ML 1 ML VIAL SQ SCH (09:27)
[2021-09-13] MEDS: VITAMIN D 5,000 UNIT CAP PO SCH (09:27)
--- NOTE | 2021-09-13 10:45 | P.PN ---
Subjective Date of Service: 09/13/21 Primary Care Provider: [place] Chief Complaint: Sepsis Patient seen and examined at bedside, no acute events. Review of Systems 10-point ROS is otherwise unremarkable Physical Examination - Vital Signs Temperature: 96.2 F Blood Pressure: 122/70 Pulse: 77 Respirations: 17 Pulse Ox (%): 96 - Studies Laboratory Last Values WBC 25.6 K/uL (4.3-10.9) H* D 09/03/21 15:15 RBC 3.31 M/uL (4.33-5.43) L 09/03/21 15:15 Hgb 10.5 g/dL (13.6-17.9) L 09/03/21 15:15 Hct 31.8 % (39.6-49.0) L 09/03/21 15:15 MCV 96.3 fL (80-100) 09/03/21 15:15 MCH 31.8 pg (27.0-35.0) 09/03/21 15:15 MCHC 33.0 g/dL (32.0-36.0) 09/03/21 15:15 RDW 15.1 % (12.1-15.2) 09/03/21 15:15 Plt Count 312 K/uL (152-406) 09/03/21 15:15 MPV 8.3 fL (7.6-11.3) 09/03/21 15:15 Neutrophils % 88.5 % (41.7-73.7) H 09/03/21 15:15 Lymphocytes % 6.2 % (15.3-44.8) L 09/03/21 15:15 Monocytes % 4.4 % (3.3-12.3) 09/03/21 15:15 Eosinophils % 0.4 % (0-4.4) 09/03/21 15:15 Basophils % 0.5 % (0-1.3) 09/03/21 15:15 Absolute Neutrophils 22.7 K/uL (1.8-8.0) H 09/03/21 15:15 Segmented Neutrophils 84 % (40-80) H 09/03/21 15:15 Band Neutrophils 2 % (0-1) H 09/03/21 15:15 Absolute Lymphocytes 1.6 K/uL (0.7-4.9) 09/03/21 15:15 Lymphocytes 5 % (15-42) L 09/03/21 15:15 Monocytes 4 % (0-10) 09/03/21 15:15 Absolute Monocytes 1.1 K/uL (0.1-1.3) 09/03/21 15:15 Absolute Eosinophils 0.1 K/uL (0-0.5) 09/03/21 15:15 Absolute Basophils 0.1 K/uL (0-0.5) 09/03/21 15:15 Toxic Granulation 2+ 09/03/21 15:15 Platelet Estimate Adeq 09/03/21 15:15 Morphology Comment Not seen (NOT SEEN) 09/03/21 15:15 Sodium Cancelled 09/03/21 15:31 Potassium Cancelled 09/03/21 15:31 Chloride Cancelled 09/03/21 15:31 Carbon Dioxide Cancelled 09/03/21 15:31 BUN Cancelled 09/03/21 15:31 Creatinine Cancelled 09/03/21 15:31 Estimated GFR Cancelled 09/03/21 15:31 Glucose Cancelled 09/03/21 15:31 Lactic Acid 3.9 mmol/L (0.4-2.0) H 09/03/21 15:50 Uric Acid Cancelled 09/03/21 05:00 Calcium Cancelled 09/03/21 15:31 Total Bilirubin Cancelled 09/03/21 15:31 AST Cancelled 09/03/21 15:31 ALT Cancelled 09/03/21 15:31 Alkaline Phosphatase Cancelled 09/03/21 15:31 Troponin I High Sens 4.4 pg/mL (<58.9) 09/03/21 15:15 Serum Total Protein Cancelled 09/03/21 15:31 Albumin Cancelled 09/03/21 15:31 Globulin Cancelled 09/03/21 15:31 Albumin/Globulin Ratio Cancelled 09/03/21 15:31 Urine pH 6.0 (5.0-7.0) 09/03/21 16:12 Ur Specific [place] 1.020 (1.005-1.030) 09/03/21 16:12 Glucose (UA)(Auto) Negative (Negative) 09/03/21 16:12 Urine Ketones Trace (Negative) H 09/03/21 16:12 Urine Blood 2+ (Negative) H 09/03/21 16:12 Urine Nitrite Negative (Negative) 09/03/21 16:12 Ur Leukocyte Esterase 1+ (Negative) H 09/03/21 16:12 Urine RBC 5-10 /HPF (NONE SEEN) H 09/03/21 16:00 Urine WBC 20-50 /HPF (<5) H 09/03/21 16:00 Ur Squamous Epith Cells <5 /HPF (NONE SEEN) 09/03/21 16:00 Urine Bacteria Loaded /HPF (NONE SEEN) H 09/03/21 16:00 Urine Culture Reflexed Reflexed 09/03/21 16:00 Urine Total Protein 2+ (Negative) H 09/03/21 16:12 Influenza Type A RNA Negative (NEGATIVE) 09/03/21 13:28 Influenza Type B RNA Negative (NEGATIVE) 09/03/21 13:28 SARS-CoV-2 RNA (RT-PCR) Negative (NEGATIVE) 09/03/21 13:28 Assessment And Plan - Plan Physical Exam: General: Alert, In no apparent distress, Obese HEENT: Atraumatic, Normocephalic Neck: Supple, JVD not distended Respiratory: Clear to auscultation bilaterally, Normal air movement Cardiovascular: No edema, Regular rate/rhythm Capillary refill: <2 Seconds Gastrointestinal: Soft and benign Integumentary: No rashes, No breakdown Conclusions/Impression: Antibiotics: macrobid: 09/12-current vancomcyin: 09/09-09/12 Levaquin: 09/05-09/12 Vancomycin: Assessment/plan Urosepsis -Blood cultures growing Klebsiella sensitive to Levaquin. Patient has completed 7-day course of Levaquin. Urine culture growing Klebsiella and Enterococcus faecalis. Enterococcus faecalis is resistant to Levaquin, as such vancomycin has been added to antibiotic regimen. IV vancomycin deescalated to oral Macrobid. CT abdomen pelvis showed nonobstructing right kidney stone. Patient may benefit from outpatient urology consultation. Oblique fracture of proximal left femur Ortho consulted. Opted for nonsurgical approach. Pneumonia? -Chest x-ray showed bilateral pulmonary opacities representing edema versus inflammation/infection. Lungs clear to auscultation, patient aerating well on room air. Low clinical suspicion for pneumonia. Plan of care discussed with Dr. Pandya Thank you for consultation
[2021-09-13 12:49] LABS: Magnesium 2.3 mg/dL (1.8-2.4); Potassium 4.2 mmol/L (3.5-5.1)
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
[2021-09-13 16:54] VITALS: BP 133/71; TEMP 96
--- NOTE | 2021-09-13 22:34 | P.PN ---
Date of Service: 09/13/21 Vital Signs Temp Pulse Resp BP Pulse Ox 96.0 F L 79 15 133/71 99 09/13/21 16:00 09/13/21 16:00 09/13/21 16:52 09/13/21 16:00 09/13/21 16:00 Microbiology Results 09/03/21 15:15 Blood - Blood Aerobic Blood Culture - Final Gram Neg Matt Klebsiella Pneumoniae 09/03/21 15:15 Blood - Blood Blood Culture Gram Stain - Final 09/03/21 15:15 Blood - Blood Anaerobic Blood Culture - Final No growth in 5 days. 09/03/21 15:50 Blood - Blood Aerobic Blood Culture - Final Gram Neg Matt Klebsiella Pneumoniae 09/03/21 15:50 Blood - Blood Blood Culture Gram Stain - Final 09/03/21 15:50 Blood - Blood Anaerobic Blood Culture - Final No growth in 5 days. 09/03/21 16:00 Clean Catch Urine [place] Count - Final >100,000 CFU/ML. 09/03/21 16:00 Clean Catch Urine - Final Klebsiella Pneumoniae Enterococcus Faecalis Assessment/ Plan: Nephrology No dyspnea No chest pain No acute events overnight Vitals, medications, blood work and imaging reviewed in the chart. General: Oriented x3, Cooperative HEENT: Atraumatic Neck: Supple Respiratory: Normal air movement Cardiovascular: Regular rate/rhythm, Edema Gastrointestinal: Soft and benign, Non-distended Musculoskeletal: No clubbing Integumentary: No rashes, No cyanosis Neurological: Normal speech, Abnormal strength, Abnormal tone, Abnormal reflexes Laboratory Data (last 24 hrs) 09/03/21 15:31: Sodium Cancelled, Potassium Cancelled, BUN Cancelled, Creatinine Cancelled, Glucose Cancelled, Total Bilirubin Cancelled, AST Cancelled, ALT Cancelled, Alkaline Phosphatase Cancelled 09/03/21 15:15: WBC 25.6 H* D, Hgb 10.5 L, Hct 31.8 L, Plt Count 312 09/03/21 15:15: Sodium 137, Potassium 3.7, BUN 63 H D, Creatinine 2.70 H D, Glucose 76, Total Bilirubin 2.0 H, AST 5303 H* D, ALT 2592 H* D, Alkaline Phosphatase 149 H 09/03/21 05:00: Uric Acid Cancelled Imagings Data: EXAM DESCRIPTION: US - Abdomen Exam Limited - 09/04/2021 5:45 am CLINICAL HISTORY: Eval solitary kidney (right) ARF, Liver (shock) COMPARISON: Abdomen Pelvis Wo Contrast dated 01/14/2016; Chest Abd Pelvis Wo Con dated 09/03/2021 FINDINGS: The liver demonstrates diffuse fatty infiltration.Simple appearing cyst in the right hepatic lobe measuring up to 2.6 cm with increased through transmission. The right kidney is poorly visualized. No hydronephrosis is seen.No evidence of portal vein thrombosis. Cholecystectomy. IMPRESSION: 1. Hepatic steatosis. 2. Right hepatic lobe cyst. 3. Limited visualization of the right kidney. Severe hydronephrosis not visualized. Correlating with the CT from 09/03/2021, no hydronephrosis was present on 09/03/2021. EXAM DESCRIPTION: CT - Chest Abd Pelvis Wo Con - 09/03/2021 6:41 pm CLINICAL HISTORY: Chest and abdomen pain. septic shock, ARF, Acute hepatitis, abdominal pain/chest pa COMPARISON: Chest For Pe Angio dated 08/30/2021 TECHNIQUE: A limited noncontrast study was performed. All CT scans are performed using dose optimization technique as appropriate and may include automated exposure control or mA/KV adjustment according to patient size. FINDINGS: The lung mar appear emphysematous with areas of linear scarring in the left apex.No pleural or pericardial effusion.No intrathoracic adenopathy The liver appears normal size. 3.6 cm cyst is suspected anterior right lobe. No intra or extrahepatic biliary tree dilatation is seen. The spleen, pancreas and adrenal glands are normal. Left nephrectomy noted. Punctate calculi calices of the right kidney without hydronephrosis. No bowel obstruction, free air, free fluid or abscess. Nonvisualized appendix. Moderate stool retained throughout the colon to No pathologic lymphadenopathy in the abdomen or pelvis. There is evidence of an oblique fracture involving the proximal left femur. IMPRESSION: There is evidence of an oblique fracture of the proximal left femur. Moderate stool is retained throughout the colon. Tiny punctate right renal calculi without hydronephrosis. EXAM DESCRIPTION: RAD - Chest Single View - 09/03/2021 4:13 pm CLINICAL HISTORY: CHEST PAIN Chest pain. COMPARISON: Chest Single View dated 08/30/2021; Chest Single View dated 06/03/2019; Chest Single View dated 08/07/2016; Chest Single View dated 01/14/2016 FINDINGS: Portable technique limits examination quality. Moderate bilateral pulmonary opacities are present, essentially unchanged since comparative study. This likely represents pulmonary edema or infection/ pneu monia. The heart is mildly enlarged in size. No displaced fractures. Conclusions/Impression: ILANA likely due to hypovolemia/ sepsis CKD III with proteinuria Left nephrectomy -No NSAIDs Hypokalemia -Replete potassium prn Acidosis, resolved HypoPO4 -Replete PO4 prn -Encourage nutrition Hyperuricemia Hip Edema -Continue HCTZ 12.5mg daily IFG -No sugar diet Acute hepatitis likely due to shock -Monitor LFT Moderate malnutrition -Encourage nutrition Anemia in chronic illness -Monitor H&H -Plan for PRBCs today Acute infective cystitis Sepsis/ Septic shock -Contnue Abx
[2021-09-14] MEDS ORDERED: predniSONE 20 MG TAB PO SCH (09:00)
== END 2021-09-13 19:58 | DRG 698 ==
LOC: ER 14:49 → ERHOLD 18:36 → 3RD-ICU 20:30 → 2ND 09-06 20:50
PROVIDERS: ADMIT Hospitalist; ATTEND Hospitalist
PROC: 30233N1 Transfusion of Nonautologous Red Blood Cells into Peripheral Vein, Percutaneous Approach (ICD-10-PCS; principal; 2021-09-08)
DX: T83.518A Infection and inflammatory reaction due to other urinary catheter, initial encounter (principal); S72.92XA Unspecified fracture of left femur, initial encounter for closed fracture; A41.59 Other Gram-negative sepsis; R65.21 Severe sepsis with septic shock; K72.00 Acute and subacute hepatic failure without coma; G82.20 Paraplegia, unspecified; N39.0 Urinary tract infection, site not specified; N17.9 Acute kidney failure, unspecified; E87.2 Acidosis; E44.0 Moderate protein-calorie malnutrition; I10 Essential (primary) hypertension; E78.5 Hyperlipidemia, unspecified; I95.9 Hypotension, unspecified; K21.9 Gastro-esophageal reflux disease without esophagitis; B96.1 Klebsiella pneumoniae [K. pneumoniae] as the cause of diseases classified elsewhere; B95.2 Enterococcus as the cause of diseases classified elsewhere; D64.9 Anemia, unspecified; E87.6 Hypokalemia; Z68.33 Body mass index [BMI] 33.0-33.9, adult; N20.0 Calculus of kidney; R73.01 Impaired fasting glucose; L97.529 Non-pressure chronic ulcer of other part of left foot with unspecified severity; L97.519 Non-pressure chronic ulcer of other part of right foot with unspecified severity; Z90.5 Acquired absence of kidney; Z74.01 Bed confinement status; W05.0XXA Fall from non-moving wheelchair, initial encounter; Y92.009 Unspecified place in unspecified non-institutional (private) residence as the place of occurrence of the external cause; Z88.0 Allergy status to penicillin; Z20.822 Contact with and (suspected) exposure to COVID-19
CPT/HCPCS: 0240U; 36415; 51702; 71045; 71250; 74176; 76705; 80048; 80053; 80061; 80202; 81003; 81015; 82533; 82570; 82607; 82746; 83036; 83540; 83605; 83735; 84100; 84132; 84156; 84300; 84439; 84443; 84466; 84484; 84550; 85014; 85018; 85025; 85610; 85730; 86850; 86900; 86901; 87040; 87077; 87086; 87088; 87186; 87205; 93005; 96361; 96365; 96366; 96375; 97110; 97161; 99283; 99285; J1170; J1644; J2405; J3370; J3475; J7030; J7040; J7050; P9016; U0003

== ENCOUNTER 2021-10-03 16:17 | Emergency (ER) | payer OTHER ==
[2021-10-03] MEDS ORDERED: HYDROCODONE/APAP 5/325 MG TAB ONE (17:04)
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
--- NOTE | 2021-10-03 18:46 | RAD REPORT ---
EXAM DESCRIPTION: RAD - Hip Right 2 View - 10/03/2021 6:03 pm CLINICAL HISTORY: PAIN COMPARISON: Pelvis dated 10/03/2021 FINDINGS: Only single frontal projection could be obtained due to patient's clinical status. Grossly , no fracture or dislocation is evident.
--- NOTE | 2021-10-03 18:47 | RAD REPORT ---
EXAM DESCRIPTION: RAD - Knee Right 3 View - 10/03/2021 6:03 pm CLINICAL HISTORY: PAIN COMPARISON: No comparisons FINDINGS: Oblique, mildly displaced fracture of the distal right femur is seen. Vascular calcificati ons are noted.
--- NOTE | 2021-10-03 18:47 | RAD REPORT ---
EXAM DESCRIPTION: RAD - Tib Fib Right - 10/03/2021 6:03 pm CLINICAL HISTORY: PAIN COMPARISON: No comparisons FINDINGS: Diffuse osteopenia is present. No acute fracture or dislocation seen.
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
--- NOTE | 2021-10-03 18:52 | ER ---
Nurse's Notes [facility] Name: Giuliano Leyva Age: 65 yrs Sex: Male : 1955 Arrival Date: 10/03/2021 Time: 16:18 Bed 17 Private MD: Diagnosis: Fracture of shaft of femur-right Presentation: 10/03 16:18 Chief complaint: EMS states[facility] staff was attempting to [facility] 6 pt from bed to wheelchair. pt was dropped and heard a pop coming from rt leg. pt also having pain to rib area where transfer belt was placed. Coronavirus screen: Vaccine status: Patient reports receiving the 2nd dose of the covid vaccine. Client denies travel out of the [place] in the last 14 days. Ebola Screen: Patient negative for fever greater than or equal to 101.5 degrees Fahrenheit, and additional compatible Ebola Virus Disease symptoms Patient denies exposure to infectious person. Patient denies travel to an Ebola-affected area in the 21 days before illness onset. Initial Sepsis Screen: Does the patient meet any 2 criteria? No. Patient's initial sepsis screen is negative. Risk Assessment: Do you want to hurt yourself or someone else? Patient reports no desire to harm self or others. Onset of symptoms was October 03, 2021. 16:18 Method Of Arrival: EMS: [place] [id number] 16:18 Acuity: MISAEL 3 [facility] 16:20 Initial Sepsis Screen: Does the patient have a suspected source of infection? No. [facility] Patient's initial sepsis screen is negative. Triage Assessment: 16:21 General: Appears in no apparent distress. Behavior is calm, cooperative. Pain: [facility] Complains of pain in right lateral anterior chest and left lateral posterior chest Pain currently is 5 out of 10 on a pain scale. Quality of pain is described as aching, Pain began suddenly, Is continuous, Aggravated by increased activity. Musculoskeletal: Reports pain in left lateral anterior chest, right lateral posterior chest and left lateral posterior chest. Historical: - Allergies: 16:21 PENICILLINS; 6 - PMHx: 16:21 GERD; High Cholesterol; Hypertension; Paraplegia; [facility] - Immunization history:: Adult Immunizations. - Social history:: Smoking status: unknown. - Family history:: not pertinent. Screenin:22 Abuse screen: Denies threats or abuse. Nutritional screening: No deficits noted. 6 Tuberculosis screening: No symptoms or risk factors identified. Fall Risk Secondary diagnosis (15 points) impaired mobility, Ambulatory Aid- None/Bed Rest/Nurse Assist (0 pts). Assessment: 17:15 Reassessment: No changes from previously documented assessment. Patient is alert, 6 oriented x 3, equal unlabored respirations, skin warm/dry/pink. 17:15 General: Appears in no apparent distress. Behavior is calm, cooperative, see triage [facility] notes.. 20:00 Reassessment: Report called to [place] at [facility], as the pt is to be transferred cedric back, as soon as, EMS arrives. Vital Signs: 16:18 BP 107 / 71; Pulse 70; Resp 17; Pulse Ox 100% ; Weight 104.33 kg; Height 6 ft. 0 in. [facility] (182.88 cm); Pain 5/10; 19:23 BP 90 / 69; Pulse 72; Resp 16; Temp 98.5; Pulse Ox 99% on R/A; Pain 0/10; cedric 16:18 Body Mass Index 31.19 (104.33 kg, 182.88 cm) [facility] ED Course: 16:18 Patient arrived in ED. 6 16:18 Ginny Thorne, HAYDEN is Primary Nurse. 6 16:21 Miracle Araya MD is Attending Physician. hi2 16:21 Triage completed. jh6 16:22 Arm band placed on left wrist. jh6 16:23 No provider procedures requiring assistance completed. jh6 16:25 Placed in gown. Bed in low position. Call light in reach. Side rails up X2. jh6 17:35 Patient moved to radiology. jh6 17:50 Patient moved back from radiology. jh6 18:05 XRAY Knee RIGHT 3 view In Process Unspecified. EDMS 18:05 Tib Fib Right XRAY In Process Unspecified. EDMS 18:05 Hip Right 2 View XRAY In Process Unspecified. EDMS 18:05 XRAY Pelvis In Process Unspecified. EDMS 18:51 Ramy Desai MD is Referral Physician. ma2 19:20 Primary Nurse role handed off by Ginny Thorne, HAYDEN [facility] 19:23 Sandra Vera, RN is Primary Nurse. cedric 20:38 Patient did not have IV access during this emergency room visit. cedric Administered Medications: 17:00 Drug: HYDROcodone-acetaminophen 5 mg-325 mg 1 tabs Route: PO; jh6 19:38 Follow up: Response: No adverse reaction cedric Outcome: 18:52 Discharge ordered by . hermelinda 20:38 Condition: stable cedric 20:38 [facility] prison. Report called to Selvin cerdic 20:38 Discharge instructions given to patient, Instructed on discharge instructions, follow up and referral plans. 20:39 Patient left the ED. cedric Signatures: Dispatcher [employer] EDMS Miracle Araya MD MD ma2 Jackson, Kandis kj1 Ginny Thorne RN RN jh6 Sandra Vera RN RN cedric
[2021-10-03 22:57] VITALS: BP 90/69; TEMP 98.5; O2SAT 99
== END 2021-10-03 20:39 | disposition home or self-care (01) ==
LOC: ER 16:17
DX: S72.301A Unspecified fracture of shaft of right femur, initial encounter for closed fracture (principal); X50.1XXA Overexertion from prolonged static or awkward postures, initial encounter; Y92.129 Unspecified place in nursing home as the place of occurrence of the external cause; G82.20 Paraplegia, unspecified; I10 Essential (primary) hypertension; Z88.0 Allergy status to penicillin
CPT/HCPCS: 72170; 99283

== ENCOUNTER 2021-10-26 15:09 | Emergency (ER) | payer OTHER ==
--- NOTE | 2021-10-26 17:35 | RAD REPORT ---
EXAM DESCRIPTION: RAD - Knee Right 3 View - 10/26/2021 5:19 pm CLINICAL HISTORY: PAIN COMPARISON: Knee Right 3 View dated 10/03/2021 FINDINGS: Right knee three-view examination obtained compared with two view study of October 03. Dista l femur fracture is again noted. On the lateral view, alignment and positioning are not substantially different. AP projections are not comparable E positioned. There may be slightly greater lateral dis placement of the distal fracture fragments measuring 2- 3 mm. No new fracture line is seen. No perios teal reaction. Knee joint degenerative changes are present including height loss in the medial tibial plateau matching the prior imaging. Delete select IMPRESSION: Distal femur fracture is again noted and may show very minimal 2-3 mm greater lateral di splacement of the distal fracture fragment.
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
[2021-10-26 21:07] VITALS: TEMP 97.7
[2021-10-26 21:10] VITALS: BP 157/92; O2SAT 97
== END 2021-10-26 20:43 | disposition home or self-care (01) ==
LOC: ER 15:09
DX: S72.301A Unspecified fracture of shaft of right femur, initial encounter for closed fracture (principal)
CPT/HCPCS: 99285

== ENCOUNTER 2021-12-24 19:14 | Inpatient (IN) | payer OTHER ==
[2021-12-24 19:58] LABS: Absolute Lymphocytes (CBC) 1.6 K/uL (0.7-4.9); Hematocrit 35.7 % (39.6-49.0); Lymphocytes % 14.7 % (15.3-44.8); MCV 96.9 fL (80-100); RBC Red Blood Cell Count 3.69 M/uL (4.33-5.43)
[2021-12-24] MEDS ORDERED: FAMOTIDINE 20 MG/2 ML VIAL IV ONE (20:02)
[2021-12-24] MEDS ORDERED: ONDANSETRON 4 MG/2 ML VIAL ONE (20:02)
[2021-12-24 20:04] LABS: Protime INR 1.11
[2021-12-24 20:19] LABS: ALT/SGPT 13 U/L (12-78); AST/SGOT 14 U/L (15-37); Albumin 3.3 g/dL (3.4-5.0); Alkaline Phosphatase 172 U/L (45-117); BUN Blood Urea Nitrogen 28 mg/dL (7-18); Bicarbonate 26 mmol/L (21-32); Bilirubin Total 0.2 mg/dL (0.2-1.0); Glomerular Filtration Rate 57 ml/min (=/>90); Glucose Level 90 mg/dL (74-106); Lipase 74 U/L (73-393); Magnesium 2.3 mg/dL (1.8-2.4); NT PRO-BNP 578 pg/mL (<125); Potassium 3.9 mmol/L (3.5-5.1); Sodium Level 140 mmol/L (136-145); Troponin High Sensitivity 10.8 pg/mL (<58.9)
[2021-12-24 20:21] LABS: Bilirubin Direct < 0.1 mg/dL (0-0.2)
--- NOTE | 2021-12-24 20:30 | RAD REPORT ---
EXAM DESCRIPTION: RAD - Chest Single View - 12/24/2021 8:18 pm CLINICAL HISTORY: SOB COMPARISON: Chest Single View dated 09/06/2021; Chest Single View dated 09/03/2021; Chest Single View d ated 08/30/2021; Chest Single View dated 06/03/2019; Chest Abd Pelvis Wo Con dated 09/03/2021 FINDINGS: Lines: None. Lungs: Bilateral coarsening of the pulmonary interstitium as well as scattered opacities throughout t he left lung. Taking into account some differences in technique, this has modestly worsened since 06/2021. Pleural: No significant pleural effusions or pneumothorax. Cardiac: Cardiomegaly. Bones: No acute fractures. IMPRESSION: Worsened aeration of the left lung could represent an acute process such as pneumonia rosenbaum perimposed upon chronic lung findings.
[2021-12-24 21:18] LABS: Arterial Blood Carboxyhemoglob 1.4 % (0-1.5); Blood Gas Oxyhemoglobin 95.8 % (94-97); Blood O2 Saturation 98.2 % (92-98.5)
--- NOTE | 2021-12-24 21:20 | RAD REPORT ---
EXAM DESCRIPTION: CT - Ct Stroke Brain Wo Cont - 12/24/2021 9:10 pm CLINICAL HISTORY: altered mental status COMPARISON: No comparisons TECHNIQUE: All CT scans are performed using dose optimization technique as appropriate and may inclu de automated exposure control or mA/KV adjustment according to patient size. FINDINGS: No intracranial hemorrhage, hydrocephalus or extra-axial fluid collection.No areas of brai n edema or evidence of midline shift. Cerebral atrophy and mild chronic small vessel ischemic changes . The paranasal sinuses and mastoids are clear. The calvarium is intact. IMPRESSION: No acute intracranial abnormality. Findings called to Eulalio Abraham in the ED at 2104 on 12/24/21.
[2021-12-24 21:26] LABS: Urine Blood 1+ (Negative); Urine Glucose Negative (Negative); Urine Protein 2+ (Negative); Urine Specific Gravity 1.025 (1.005-1.030); Urine pH 5.5 (5.0-7.0)
--- NOTE | 2021-12-24 21:28 | RAD REPORT ---
EXAM DESCRIPTION: CT - Chest For Pe Angio - 12/24/2021 9:09 pm CLINICAL HISTORY: shortness of breath COMPARISON: Chest Abd Pelvis Wo Con dated 09/03/2021; Chest For Pe Angio dated 08/30/2021; Abdomen P tomas W Contrast dated 12/24/2021; Chest Single View dated 12/24/2021 TECHNIQUE: Dynamically enhanced axial 3 mm thick images of the chest were obtained during administra tion of <100> mL Isovue 370 IV contrast. Coronal and oblique reconstruction images were generated and reviewed. Exam utilizes a protocol for optimal evaluation of pulmonary arterial tree. Maximum intensity projections 3D imaging was utilized All CT scans are performed using dose optimization technique as appropriate and may include automated exposure control or mA/KV adjustment according to patient size. FINDINGS: Chest Wall: No suspicious thyroid nodules or pathologic lymphadenopathy. Lungs: Widespread bilateral ground-glass opacities with low lung volumes. New 7 mm perifissural pulmo nary nodule in the right lung on image 194, series 401. Background of mild chronic interstitial lung changes. No honeycombing. Pleura: No significant effusions or pneumothorax. Mediastinum/janet: No pathologic lymphadenopathy. Small hiatal hernia. Pulmonary arteries/Aorta: Suboptimal opacification of the pulmonary arteries. No central pulmonary em bolus. Limited evaluation of the segmental and subsegmental branches. No filling defect identified. N o aortic aneurysm. Heart: No significant pericardial effusion. Cardiomegaly. Upper abdomen: No acute abnormality.Hepatic steatosis low-density lesion right hepatic lobe is likely benign. Bones: No acute abnormality. IMPRESSION: 1. No central pulmonary embolus. Limited evaluation of the segmental and subsegmental p ulmonary arteries due to suboptimal contrast opacification. 2. Worsened aeration of the lungs with fairly diffuse ground-glass attenuation favored to represent a telectasis as result of hypoventilation. Pneumonia and/or edema difficult to entirely exclude, howeve r. Background of mild nonspecific chronic interstitial lung changes. 3. New 7 mm right-sided lung nodule. Benign etiology strongly favored but suggest 3 six-month follow- up chest CT to ensure resolution.
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
[2021-12-24 22:19] LABS: Urine Bacteria >50 /HPF (<20)
[2021-12-24] MEDS ORDERED: CEFTRIAXONE 1000 MG/VIAL ONE (22:29)
[2021-12-24] MEDS ORDERED: ALBUTEROL 2.5 MG/3 ML NEB SOL ONE (22:29)
[2021-12-24] MEDS ORDERED: NA CHLORIDE 0.9% 500 ML ONE (22:30)
[2021-12-24] MEDS ORDERED: NA CHLORIDE 0.9% 2,000 ML ONE (22:30)
[2021-12-24] MEDS ORDERED: NA CHLORIDE 0.9% 250 ML ONE (22:30)
[2021-12-24] MEDS ORDERED: AZITHROMYCIN 500 MG INJ IVPB ONE (22:30)
[2021-12-24] MEDS ORDERED: IPRATROPIUM BROM 0.5MG/2.5ML ONE (22:30)
[2021-12-24] MEDS ORDERED: RSI MEDICATION KIT IV ONE (23:00)
--- NOTE | 2021-12-24 23:19 | ER ---
Nurse's Notes [facility] Name: Giuliano Leyva Age: 66 yrs Sex: Male : 1955 Arrival Date: 12/24/2021 Time: 19:18 Bed 8 Private MD: Diagnosis: Acute respiratory failure with hypercapnia;Other pneumonia, unspecified organism;UTI/ Urinary tract infection, site not specified;Severe sepsis with septic shock Presentation: 12/24 19:18 Chief complaint: EMS states: toned out for possible dehydration. pt has been at home lg3 with no power or AC since yesterday evening. pt is a paraplegic and straight caths self. pt states that he has not had much urine output but what he has gotten is dark in color. complaints of right hip and lower back pain. 6/10 on pain scale. Coronavirus screen: Client denies travel out of the [place] in the last 14 days. At this time, the client does not indicate any symptoms associated with coronavirus-19. Ebola Screen: No symptoms or risks identified at this time. Initial Sepsis Screen: Does the patient meet any 2 criteria? No. Patient's initial sepsis screen is negative. Does the patient have a suspected source of infection? No. Patient's initial sepsis screen is negative. Risk Assessment: Do you want to hurt yourself or someone else? Patient reports no desire to harm self or others. Onset of symptoms was December 24, 2021. 19:18 Method Of Arrival: EMS: [facility] 3 19:18 Acuity: MISAEL 3 lg3 Triage Assessment: 19:22 General: Appears in no apparent distress. comfortable, Behavior is calm, cooperative. lg3 Pain: Complains of pain in right hip and lower back Pain currently is 6 out of 10 on a pain scale. EENT: No deficits noted. No signs and/or symptoms were reported regarding the EENT system. Neuro: No deficits noted. Level of Consciousness is awake, alert, obeys commands, Oriented to person, place, time, situation. Cardiovascular: No deficits noted. Denies chest pain, shortness of breath, Capillary refill < 3 seconds Clubbing of nail beds is absent JVD is absent Patient's skin is warm and dry. Respiratory: No deficits noted. Airway is patent Trachea midline Respiratory effort is even, unlabored, Respiratory pattern is regular, symmetrical. GI: No deficits noted. Abdomen is round non-distended. : Reports incontinence. Derm: No deficits noted. No signs and/or symptoms reported regarding the dermatologic system. Skin is intact, is healthy with good turgor, Skin is dry, Skin temperature is warm. Musculoskeletal: paraplegia noted to bilateral extremities. Historical: - Allergies: 19:22 PENICILLINS; lg3 - Home Meds: 19:22 losartan Oral [Active]; Lovastatin Oral [Active]; Pepcid Oral [Active]; vicodin 10 mg lg3 Q6H PRN [Active]; - PMHx: 19:22 AKF; depressive disorder; GERD; High Cholesterol; Hypertension; paraplegic; severe lg3 sepsis with shock; Paraplegia; - PSHx: 19:22 right knee; lg3 19:58 left nephrectomy; lg3 - Immunization history:: Adult Immunizations up to date, Client reports receiving the Raudel \\T\\ Raudel single-dose vaccine. Note booster X1. - Social history:: Smoking status: Patient denies any tobacco usage or history of. Patient/guardian denies using alcohol, street drugs. Screenin:26 Abuse screen: Denies threats or abuse. Denies injuries from another. Nutritional lg3 screening: No deficits noted. Tuberculosis screening: No symptoms or risk factors identified. Fall Risk None identified. Assessment: 19:25 General: see triage assessment . lg3 20:37 Reassessment: Patient appears in no apparent distress at this time. No changes from lg3 previously documented assessment. Patient and/or family updated on plan of care and expected duration. Pain level reassessed. Patient is alert, oriented x 3, equal unlabored respirations, skin warm/dry/pink. 22:57 General: pt SpO2 30% BiPAP, pt lethargic, GCS 6, provider notified . as6 23:30 Neuro: [place] Agitation-Sedation Scale (RASS): +2 Agitated. as6 23:42 Respiratory: Ventilator assessment: ET Tube: 7.5 24 at teeth Ventilator Mode: Assist as6 Control (AC) Tidal Volume: 500 Respiratory Rate: 20 FiO2: 40 PEEP: 5 HOB > 30 degrees. 23:48 Neuro: [place] Agitation-Sedation Scale (RASS): -2 Light sedation. as6 Vital Signs: 19:18 BP 116 / 60; Pulse 73; Resp 18 S; Temp 97.7(TE); Pulse Ox 100% on 2 lpm NC; Weight lg3 108.86 kg (R); Height 6 ft. 1 in. (185.42 cm) (R); Pain 6/10; 21:25 BP 127 / 58; Pulse 85; Resp 12; Pulse Ox 93% on BiPAP; as6 22:30 BP 99 / 55; Pulse 61; Resp 10 S; Pulse Ox 100% on BiPAP; as6 23:11 BP 130 / 70; Pulse 77; Resp 23; Pulse Ox 100% on BVM; ld1 23:41 BP 89 / 56; Pulse 71; Resp 20 A; Pulse Ox 100% on 40% FiO2 ETT vent; as6 23:46 BP 85 / 46; Pulse 68; Resp 20 A; Pulse Ox 100% on 40% FiO2 ETT vent; as6 12/25 00:20 BP 77 / 49; Pulse 61; Resp 23 A; Pulse Ox 100% on 40% FiO2 ETT vent; as6 01:00 BP 82 / 53; Pulse 57; Resp 20 A; Pulse Ox 100% on 40% FiO2 ETT vent; as6 01:30 BP 98 / 55; Pulse 56; Resp 20 A; Pulse Ox 100% on 40% FiO2 ETT vent; as6 02:26 BP 130 / 56; Pulse 66; Resp 18 A; Pulse Ox 100% on 40% FiO2 ETT vent; as6 12/24 19:18 Body Mass Index 31.66 (108.86 kg, 185.42 cm) lg3 ED Course: 12/24 19:18 Patient arrived in ED. lg3 19:18 Karissa Titus, HAYDEN is Primary Nurse. lg3 19:19 Eulalio Abraham PA is PHCP. cp 19:19 Bk Dennis MD is Attending Physician. cp 19:22 Triage completed. lg3 19:22 Arm band placed on right wrist. lg3 19:26 Patient has correct armband on for positive identification. Placed in gown. Bed in low lg3 position. Call light in reach. Side rails up X2. Client placed on continuous cardiac and pulse oximetry monitoring. NIBP monitoring applied. Door closed. Noise minimized. Warm blanket given. 19:47 Basic Metabolic Panel Sent. lg3 19:47 CBC with Diff Sent. lg3 19:47 LFT's Sent. lg3 19:47 Magnesium Sent. lg3 19:47 NT PRO-BNP Sent. lg3 19:47 PT-INR Sent. lg3 19:47 Troponin HS Sent. lg3 19:47 COVID-19 SARS RT PCR (Document "Date of Onset" if Symptomatic) Sent. lg3 19:47 Influenza Screen (a \\T\\ B) Sent. lg3 19:47 Lipase Sent. lg3 20:04 Influenza Screen (a \\T\\ B) Sent. oe 20:04 COVID-19 SARS RT PCR (Document "Date of Onset" if Symptomatic) Sent. oe 20:04 Inserted saline lock: 20 gauge in right antecubital area, using aseptic technique. oe Blood collected. 20:20 XRAY Chest (1 view) In Process Unspecified. EDMS 21:11 CT Chest For PE Angio In Process Unspecified. EDMS 21:11 Abdomen In Process Unspecified. EDMS 21:12 CT Stroke Brain w/o Contrast In Process Unspecified. EDMS 21:24 Velasquez cath inserted, using sterile technique, 16 Fr., by shuttlecock assembler, balloon inflated, to as6 gravity drainage, urine specimen collected. 21:47 Procalcitonin Sent. kd3 21:47 Lactate Sent. kd3 21:47 Blood Culture Adult (2) Sent. kd3 21:48 Inserted saline lock: 20 gauge in left wrist, using aseptic technique. Blood collected. kd3 23:10 Assisted provider with intubation using 7.5 mm ETT via oral route. Intubated by kB Dennis MD. 23:13 Assisted provider with intubation ET tube secured at 24cm at the teeth. Set up ld1 intubation tray. Placement verified by CO2 detector w/ + color change, Patient tolerated well. 23:15 NGT: inserted 16 Fr. other OG tube verified placement of air over stomach, Patient ld1 tolerated well. 23:17 Boris Dennis MD is Hospitalizing Provider. 12/25 01:23 Assisted provider with central line placement. Set up central line tray. Triple lumen aa9 line placed in right femoral. Line placed by Eulalio MALIK Placement verified by blood return, Dressed with Tegaderm, Patient tolerated well. 02:36 Patient admitted, IV remains in place. as6 Administered Medications: 12/24 20:00 Drug: Zofran (Ondansetron) 4 mg Route: IVP; Site: right antecubital; lg3 20:01 Follow up: Response: No adverse reaction lg3 20:00 Drug: Pepcid (famotidine) 20 mg Route: IVP; Site: right antecubital; lg3 20:00 Follow up: Response: No adverse reaction lg3 21:34 CANCELLED (Physician Discretion): NS 0.9% 1000 ml IV at 1 bolus Per protocol; 1000 mL cp bolus 23:06 Drug: Albuterol - atroVENT (ipratropium) (3:1) (2.5 mg - 0.5 mg) 3 ml Route: Nebulizer; 12/25 02:33 Follow up: Response: No adverse reaction as12/24 23:06 Drug: Rocephin (cefTRIAXone) 1 grams Route: IV; Rate: calculated rate; Site: right aa9 antecubital; 12/25 02:33 Follow up: Response: No adverse reaction; IV Status: Completed infusion; IV Intake: [id number] 07/19 23:06 Drug: NS 0.9% (30 ml/kg) 2500 ml Route: IV; Rate: bolus; Site: right antecubital; 12/25 02:34 Follow up: Response: No adverse reaction; IV Status: Completed infusion; IV Intake: as6 2500ml 12/24 23:09 Drug: Etomidate 20 mg Route: IVP; Site: right antecubital; ld1 23:12 Follow up: Response: No adverse reaction ld1 23:09 Drug: Succinylcholine 120 mg Route: IVP; Site: right antecubital; ld1 23:12 Follow up: Response: No adverse reaction ld1 23:22 Drug: Midazolam 2 mg Route: IVP; Site: left wrist; 12/25 02:35 Follow up: Response: No adverse reaction 12/24 23:25 Drug: Propofol 5 mcg/kg/min {Note: starting rate 15, RASS +2.} Route: IV; Rate: as6 calculated rate; Site: right antecubital; 12/25 02:35 Follow up: IV Status: Infusion continued upon admission 12/24 23:36 Drug: Midazolam 2 mg Route: IVP; Site: right antecubital; 12/25 02:35 Follow up: Response: No adverse reaction as6 00:14 Drug: Midazolam 4 mg Route: IVP; Site: right antecubital; as6 02:35 Follow up: Response: No adverse reaction as6 01:47 Drug: vancoMYCIN 1 grams Route: IVPB; Infused Over: 2 hrs; Site: left hand; kd3 02:35 Follow up: Response: No adverse reaction; IV Status: Completed infusion; IV Intake: as6 250ml 01:50 Drug: Zithromax (azithromycin) 500 mg Route: IVPB; Infused Over: 1 hrs; Site: left as6 wrist; 02:34 Follow up: IV Status: Infusion continued upon admission as6 02:28 Drug: Midazolam 2 mg Route: IVP; Site: right femoral; as6 02:35 Follow up: Response: No adverse reaction as6 Medication: 12/24 21:48 VIS not applicable for this client. kd3 Intake: 12/25 02:33 IV: 50ml; Total: 50ml. as6 02:34 IV: 2500ml; Total: 2550ml. as6 02:35 IV: 250ml; Total: 2800ml. as6 Outcome: 12/24 23:18 Decision to Hospitalize by Provider. 12/25 02:36 Admitted to ICU accompanied by nurse, via stretcher, room 6, with oxygen, on monitor, as6 with chart. critical 02:36 Patient left the ED. as6 Signatures: Dispatcher [employer] Eulalio Arias PA PA cp Espinosa, Orlando oe Gibson, Lacie, RN RN lg3 Mariluz Dudley RN RN [email or web address] Twin Shukla RN RN as6 Jade Ellis RN RN kd3 Ruby Stewart RN RN aa9 Corrections: (The following items were deleted from the chart) 12/24 23:16 23:10 Assisted provider with intubation using 7.5 mm ETT via oral route. Intubated by ender handley 23:42 23:41 BP 89 / 56; Pulse 71bpm; Resp 20bpm; Spontaneous; Pulse Ox 100% FiO2 40% vent; as6as6
--- NOTE | 2021-12-24 23:19 | EDPHYS ---
Physician Documentation [facility] Name: Giuliano Leyva Age: 66 yrs Sex: Male : 1955 Arrival Date: 12/24/2021 Time: 19:18 Bed 8 Private MD: ED Physician Bk Dennis HPI: 12/24 19:25 This 66 yrs old Male presents to ER via EMS with complaints of Nausea. cp 19:25 The patient presents to the emergency department with nausea, with "dry heaves", cp abdominal pain, of the right lower quadrant and left lower quadrant. 19:25 Onset: The symptoms/episode began/occurred today. EMS reports patient with oxygen sats cp in the 70's upon their arrival. Patient reportedly at home in heat with no AC. Historical: - Allergies: 19:22 PENICILLINS; lg3 - Home Meds: 19:22 losartan Oral [Active]; Lovastatin Oral [Active]; Pepcid Oral [Active]; vicodin 10 mg lg3 Q6H PRN [Active]; - PMHx: 19:22 AKF; depressive disorder; GERD; High Cholesterol; Hypertension; paraplegic; severe lg3 sepsis with shock; Paraplegia; - PSHx: 19:22 right knee; lg3 19:58 left nephrectomy; lg3 - Immunization history:: Adult Immunizations up to date, Client reports receiving the Raudel \\T\\ Raudel single-dose vaccine. Note booster X1. - Social history:: Smoking status: Patient denies any tobacco usage or history of. Patient/guardian denies using alcohol, street drugs. ROS: 19:28 Constitutional: Negative for body aches, chills, fever, poor PO intake. cp 19:28 Eyes: Negative for injury, pain, redness, and discharge. cp 19:28 ENT: Negative for drainage from ear(s), ear pain, sore throat, difficulty swallowing, difficulty handling secretions. 19:28 Cardiovascular: Negative for chest pain, edema, palpitations. 19:28 Respiratory: Positive for shortness of breath, Negative for cough, wheezing. 19:28 Abdomen/GI: Positive for abdominal pain, nausea, Negative for vomiting, diarrhea, constipation. 19:28 Back: Positive for pain at rest, pain with movement, of the low back. 19:28 Neuro: Negative for altered mental status, dizziness, headache, loss of consciousness, syncope, weakness. 19:28 All other systems are negative. Exam: 19:30 Constitutional: The patient appears in no acute distress, alert, awake, cp non-diaphoretic, non-toxic, well developed, well nourished, obese. 19:30 Head/Face: Normocephalic, atraumatic. cp 19:30 Eyes: Periorbital structures: appear normal, Pupils: equal, round, and reactive to light and accomodation, Extraocular movements: intact throughout, Conjunctiva: normal, no exudate, no injection, Sclera: no appreciated abnormality, Lids and lashes: appear normal, bilaterally. 19:30 ENT: External ear(s): are unremarkable, Nose: is normal, Mouth: Lips: moist, Oral mucosa: pink and intact, moist, Posterior pharynx: Airway: no evidence of obstruction, patent. 19:30 Neck: ROM/movement: is normal, is supple, without pain, no range of motions limitations, no meningismus. 19:30 Chest/axilla: Inspection: normal, Palpation: is normal, no crepitus, no tenderness. 19:30 Cardiovascular: Rate: normal, Rhythm: regular, Edema: is not appreciated, JVD: is not appreciated. 19:30 Respiratory: the patient does not display signs of respiratory distress, Respirations: labored breathing, is not present, shallow respirations, that is mild, Breath sounds: are clear throughout, no decreased breath sounds, no stridor, no wheezing. 19:30 Abdomen/GI: Inspection: obese Bowel sounds: active, all quadrants, Palpation: soft, in all quadrants, mild abdominal tenderness, in the right lower quadrant and left lower quadrant, rebound tenderness, is not appreciated, involuntary guarding, is not appreciated. 19:30 Back: CVA tenderness, is absent. 19:30 Neuro: Orientation: to person, place \\T\\ time. Mentation: able to follow commands, slow to respond, Motor: paraplegic by history. 19:38 ECG was reviewed by the Attending Physician. cp 21:28 ECG was reviewed by the Attending Physician. cp Vital Signs: 19:18 BP 116 / 60; Pulse 73; Resp 18 S; Temp 97.7(TE); Pulse Ox 100% on 2 lpm NC; Weight lg3 108.86 kg (R); Height 6 ft. 1 in. (185.42 cm) (R); Pain 6/10; 21:25 BP 127 / 58; Pulse 85; Resp 12; Pulse Ox 93% on BiPAP; as6 22:30 BP 99 / 55; Pulse 61; Resp 10 S; Pulse Ox 100% on BiPAP; as6 23:11 BP 130 / 70; Pulse 77; Resp 23; Pulse Ox 100% on BVM; ld1 23:41 BP 89 / 56; Pulse 71; Resp 20 A; Pulse Ox 100% on 40% FiO2 ETT vent; as6 23:46 BP 85 / 46; Pulse 68; Resp 20 A; Pulse Ox 100% on 40% FiO2 ETT vent; as6 12/25 00:20 BP 77 / 49; Pulse 61; Resp 23 A; Pulse Ox 100% on 40% FiO2 ETT vent; as6 01:00 BP 82 / 53; Pulse 57; Resp 20 A; Pulse Ox 100% on 40% FiO2 ETT vent; as6 01:30 BP 98 / 55; Pulse 56; Resp 20 A; Pulse Ox 100% on 40% FiO2 ETT vent; as6 02:26 BP 130 / 56; Pulse 66; Resp 18 A; Pulse Ox 100% on 40% FiO2 ETT vent; as6 12/24 19:18 Body Mass Index 31.66 (108.86 kg, 185.42 cm) lg3 Procedures: 12/24 23:15 Intubation: Ventilated with 100% NRB prior to procedure. O2 saturation prior to rn first assistant was 57 %. Intubated orally using # 4 Any blade with 7.5 mm ETT. was successful on first attempt. Ventilated with Ambu bag. Cricoid pressure applied during procedure. Tube secured at right side of mouth measured 23 cm at teeth. Placement verified by CXR, CO2 detector with (+) color change, auscultating bilateral breath sounds, O2 saturation after procedure was 100 %. Patient tolerated well. 12/25 01:30 Central Line: the site was prepped with Betadine, in sterile fashion, a triple lumen cp catheter was inserted, in the right femoral vein, in 2 attempts. placement was verified, by blood return, the site was dressed with using sterile technique, the patient tolerated the procedure, well. MDM: 12/24 19:21 Patient medically screened. cp 20:00 Differential diagnosis: gastritis, sepsis, respiratory distress, respiratory failure. cp 21:27 ED course: received phone report from radiology that CT head negative for acute cp findings. Low suspicion for stroke. Exam negative for lateralizing signs of weakness, patient with sudden onset confusion in setting of hypoxia with pulse ox readings in the 70's on RA and improvement of mental status when placed on BIPAP. UA positive, will order blood cultures and initiate fluids. 23:50 ED course: Pt meets criteria for severe sepsis. A: source is pneumonia and UTI; B: SIRS rn criteria is RR> 20 and acute change in mental status; C: organ dysfunction is need for BiPAP and intubation. Recent BP shows 2 SBP < 90, meeting criteria for severe sepsis with septic shock. 30cc/kg bolus ordered based on ideal body weight of 80kg, sepsis reevaluation complete. . 12/25 00:00 Data reviewed: vital signs, nurses notes, lab test result(s), EKG, radiologic studies, cp CT scan, plain films. 00:00 Test interpretation: by ED physician or midlevel provider: ECG, plain radiologic cp studies. Counseling: I had a detailed discussion with the patient and/or guardian regarding: the historical points, exam findings, and any diagnostic results supporting the discharge/admit diagnosis, lab results, radiology results, the need for further work-up and treatment in the hospital. 12/24 19:21 Order name: Basic Metabolic Panel; Complete Time: 20:33 cp 12/24 20:33 Interpretation: Normal except: BUN 28; CRE 1.39; GFR 57. cp 12/24 19:21 Order name: CBC with Diff; Complete Time: 20:10 cp 12/24 20:10 Interpretation: Normal except: RBC 3.69; HGB 11.6; HCT 35.7; PLT 407; RDW 15.7; MPV cp 7.0; LYM% 14.7. 12/24 19:21 Order name: LFT's; Complete Time: 20:33 cp 12/24 20:34 Interpretation: Normal except: AST 14; ALK 172; TP 9.0; ALB 3.3; GLOB 5.7; A/G 0.6. cp 12/24 19:21 Order name: Magnesium; Complete Time: 20:33 cp 12/24 19: Order name: NT PRO-BNP; Complete Time: 20:33 cp 12/24 19:21 Order name: PT-INR; Complete Time: 20:10 12/24 19:21 Order name: Troponin HS; Complete Time: 20:33 12/24 19:21 Order name: COVID-19 SARS RT PCR (Document "Date of Onset" if Symptomatic); Complete cp Time: 21:06 12/24 19:21 Order name: Influenza Screen (a \\T\\ B); Complete Time: 20:42 12/24 19:21 Order name: Lipase; Complete Time: 20:33 12/24 20:13 Order name: Urine Microscopic Only; Complete Time: 22:24 12/24 22:58 Interpretation: Reviewed. 12/24 21:05 Order name: Glucose, Ancillary Testing; Complete Time: 21:06 EDOR 12/24 21:19 Order name: ABG Arterial Blood Gas; Complete Time: 21:23 EDOR 12/24 21:26 Order name: Urine Dipstick-Ancillary; Complete Time: 21:30 EDOR 12/24 22:58 Interpretation: Normal except: UBLD 1+; UPROT 2+; UNIT Positive; UESTR Trace. 12/24 19:21 Order name: XRAY Chest (1 view); Complete Time: 20:33 12/24 20:36 Order name: CT Chest For PE Angio; Complete Time: 21:30 12/24 20:36 Order name: CT Abd/Pelvis - IV Contrast Only 12/24 20:42 Order name: Abdomen ; Complete Time: 22:05 [facility] 12/24 21:00 Order name: CT Stroke Brain w/o Contrast; Complete Time: 21:23 12/24 21:09 Order name: BIPAP 12/24 21:27 Order name: Blood Culture Adult (2) 12/24 21:27 Order name: Lactate; Complete Time: 22:24 12/24 22:59 Interpretation: LAC 1.0; Reviewed. 12/24 21:27 Order name: Procalcitonin; Complete Time: 22:57 12/24 22:57 Interpretation: Reviewed. 12/24 22:22 Order name: Urine Culture EDOR 12/24 23:08 Order name: Glucose, Ancillary Testing; Complete Time: 23:10 EDOR 12/24 23:18 Order name: UDS la1 12/24 23:31 Order name: XRAY Chest (1 view) 12/24 23:35 Order name: ABG Arterial Blood Gas; Complete Time: 23:55 EDMS 12/24 19:21 Order name: EKG; Complete Time: 19:22 cp 12/24 19:21 Order name: Cardiac monitoring; Complete Time: 19:46 cp 12/24 19:21 Order name: EKG - Nurse/Tech; Complete Time: 19:46 cp 12/24 19:21 Order name: IV Saline Lock; Complete Time: 19:46 cp 12/24 19:21 Order name: Labs collected and sent; Complete Time: 19:46 cp 12/24 19:21 Order name: O2 Per Protocol; Complete Time: 19:46 cp 12/24 19:21 Order name: O2 Sat Monitoring; Complete Time: 19:46 cp 12/24 20:13 Order name: Cath; Complete Time: 21:24 cp 12/24 20:13 Order name: Urine Dipstick-Ancillary (obtain specimen); Complete Time: 21:24 cp EC/19 19:38 Rate is 73 beats/min. Rhythm is regular. LA interval is normal. QRS interval is cp prolonged at 132 msec. QT interval is normal. T waves are Inverted in leads aVR, V2, V3. Interpreted by me. Reviewed by me. 21:28 Rate is 71 beats/min. Rhythm is regular. LA interval is normal. QRS interval is cp prolonged at 138 msec. QT interval is normal. T waves are Inverted in lead aVR. Interpreted by me. Reviewed by me. Administered Medications: 20:00 Drug: Zofran (Ondansetron) 4 mg Route: IVP; Site: right antecubital; lg3 20:01 Follow up: Response: No adverse reaction lg3 20:00 Drug: Pepcid (famotidine) 20 mg Route: IVP; Site: right antecubital; lg3 20:00 Follow up: Response: No adverse reaction lg3 21:34 CANCELLED (Physician Discretion): NS 0.9% 1000 ml IV at 1 bolus Per protocol; 1000 mL cp bolus 23:06 Drug: Albuterol - atroVENT (ipratropium) (3:1) (2.5 mg - 0.5 mg) 3 ml Route: Nebulizer; aa9 12/25 02:33 Follow up: Response: No adverse reaction as6 07/19 23:06 Drug: Rocephin (cefTRIAXone) 1 grams Route: IV; Rate: calculated rate; Site: right aa9 antecubital; 12/25 02:33 Follow up: Response: No adverse reaction; IV Status: Completed infusion; IV Intake: 84gkgd3 12/24 23:06 Drug: NS 0.9% (30 ml/kg) 2500 ml Route: IV; Rate: bolus; Site: right antecubital; 12/25 02:34 Follow up: Response: No adverse reaction; IV Status: Completed infusion; IV Intake: as6 2500ml 12/24 23:09 Drug: Etomidate 20 mg Route: IVP; Site: right antecubital; ld1 23:12 Follow up: Response: No adverse reaction ld1 23:09 Drug: Succinylcholine 120 mg Route: IVP; Site: right antecubital; ld1 23:12 Follow up: Response: No adverse reaction ld1 23:22 Drug: Midazolam 2 mg Route: IVP; Site: left wrist; as6 12/25 02:35 Follow up: Response: No adverse reaction 12/24 23:25 Drug: Propofol 5 mcg/kg/min {Note: starting rate 15, RASS +2.} Route: IV; Rate: as6 calculated rate; Site: right antecubital; 12/25 02:35 Follow up: IV Status: Infusion continued upon admission 12/24 23:36 Drug: Midazolam 2 mg Route: IVP; Site: right antecubital; as6 12/25 02:35 Follow up: Response: No adverse reaction as6 00:14 Drug: Midazolam 4 mg Route: IVP; Site: right antecubital; as6 02:35 Follow up: Response: No adverse reaction as6 01:47 Drug: vancoMYCIN 1 grams Route: IVPB; Infused Over: 2 hrs; Site: left hand; kd3 02:35 Follow up: Response: No adverse reaction; IV Status: Completed infusion; IV Intake: as6 250ml 01:50 Drug: Zithromax (azithromycin) 500 mg Route: IVPB; Infused Over: 1 hrs; Site: left as6 wrist; 02:34 Follow up: IV Status: Infusion continued upon admission as6 02:28 Drug: Midazolam 2 mg Route: IVP; Site: right femoral; as6 02:35 Follow up: Response: No adverse reaction as6 Disposition: 22:07 Co-signature as Attending Physician, Bk Dennis MD I agree with the assessment and rn plan of care. Attestation: The patient's history, exam findings, diagnostics, and a summary of any interventions or procedures was reviewed in detail with Eulalio MALIK. Disposition Summary: 12/24/21 23:18 Hospitalization Ordered Hospitalization Status: Inpatient Admission cp Provider: Boris Dennis cp Location: Intensive Care Unit cp Condition: Critical cp Problem: new cp Symptoms: have worsened cp Bed/Room Type: Standard cp Room Assignment: 6-(12/24/21 23:25) tw5 Diagnosis - Acute respiratory failure with hypercapnia cp - Other pneumonia, unspecified organism cp - UTI/ Urinary tract infection, site not specified cp - Severe sepsis with septic shock rn Forms: - Medication Reconciliation Form cp - SBAR form cp Critical care time excluding procedures: 02:40 Critical care time: Bedside Care: 15 minutes, Consultation: 30 minutes. Total time: 45 cp minutes Signatures: Dispatcher [employer] EDMS Bk Dennis MD MD rn Attema, Lee, EDGER FEEDER-C EDGER FEEDER-Cla1 Eulalio Abraham PA PA cp Karissa Titus, RN RN lg3 Mariluz Dudley, RN RN ld1 Flor Machuca tw5 Twin Shukla RN RN as6 Jade Ellis RN RN kd3 Ruby Stewart, RN RN aa9 Corrections: (The following items were deleted from the chart) 12/24 21:34 21:27 NS 0.9% 1000 ml IV at 1 bolus Per protocol; 1000 mL bolus ordered. cp cp 23:25 23:18 cp tw5
[2021-12-24] MEDS ORDERED: propofoL 1,000 MG/100 ML VIAL IV ONE (23:27)
[2021-12-24] MEDS ORDERED: MIDAZOLAM HCL 2 MG/2 ML INJ ONE ×2 (23:28→23:43)
[2021-12-24 23:34] LABS: Arterial Blood Carboxyhemoglob 1.1 % (0-1.5); Blood Gas Oxyhemoglobin 95.2 % (94-97); Blood O2 Saturation 97.4 % (92-98.5)
[2021-12-24] MEDS ORDERED: NA CHLORIDE 0.9% 1,000 ML IV SCH ×2 (23:49)
[2021-12-24] MEDS ORDERED: VANCOMYCIN 1 GM in NA CHLORIDE 0.9% 250 ML IVPB SCH (23:49)
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
[2021-12-25] MEDS ORDERED: Levofloxacin 750mg IV 750 MG/150 ML BAG IV ONE
[2021-12-25] MEDS ORDERED: FAMOTIDINE 20 MG/2 ML VIAL IV ONE (00:03)
[2021-12-25] MEDS ORDERED: MIDAZOLAM HCL 2 MG/2 ML INJ ONE ×2 (00:18→02:35)
[2021-12-25 00:57] LABS: Barbiturates NEGATIVE (NEGATIVE); Benzodiazepines POSITIVE (NEGATIVE); Cocaine NEGATIVE (NEGATIVE); METHAMPHETAM NEGATIVE (NEGATIVE); Methadone NEGATIVE (NEGATIVE); Opiates POSITIVE (NEGATIVE); Phencyclidine NEGATIVE (NEGATIVE); THC Cannibis NEGATIVE (NEGATIVE)
[2021-12-25] MEDS ORDERED: VANCOMYCIN 1 GM/VIAL ONE ×3 (00:58→01:40)
[2021-12-25] MEDS ORDERED: VANCOMYCIN 3 GM in NA CHLORIDE 0.9% 500 ML IVPB SCH (01:00)
[2021-12-25] MEDS ORDERED: VANCOMYCIN 2 GM in NA CHLORIDE 0.9% 500 ML IVPB SCH ×2 (01:00→13:00)
[2021-12-25] MEDS ORDERED: NA CHLORIDE 0.9% 500 ML ONE (01:03)
[2021-12-25] MEDS ORDERED: NA CHLORIDE 0.9% 250 ML ONE (01:41)
[2021-12-25] MEDS: propofoL 1,000 MG/100 ML VIAL IV PRN ×3 (02:45→20:41)
[2021-12-25] MEDS: FENTANYL CITR 100 MCG/2 ML IV PRN ×3 (03:30→17:28)
[2021-12-25] MEDS: LORazepam 2 MG/ML VIAL IV PRN ×5 (05:00→20:30)
[2021-12-25 05:51] LABS: Arterial Blood Carboxyhemoglob 1.4 % (0-1.5); Blood O2 Saturation 97.3 % (92-98.5)
[2021-12-25 05:53] LABS: Arterial Blood Carboxyhemoglob 1.6 % (0-1.5); Blood Gas Oxyhemoglobin 95.7 % (94-97); Blood O2 Saturation 98.4 % (92-98.5)
[2021-12-25 05:58] LABS: Absolute Lymphocytes (CBC) 2.1 K/uL (0.7-4.9); Hematocrit 27.7 % (39.6-49.0); Lymphocytes % 21.9 % (15.3-44.8); MCV 97.4 fL (80-100); MPV 7.4 fL (7.6-11.3); RBC Red Blood Cell Count 2.84 M/uL (4.33-5.43)
[2021-12-25 06:13] LABS: AST/SGOT 13 U/L (15-37); Albumin 2.6 g/dL (3.4-5.0); Alkaline Phosphatase 131 U/L (45-117); BUN Blood Urea Nitrogen 24 mg/dL (7-18); Bicarbonate 21 mmol/L (21-32); Bilirubin Total 0.2 mg/dL (0.2-1.0); Glomerular Filtration Rate 74 ml/min (=/>90); Glucose Level 77 mg/dL (74-106); Magnesium 2.1 mg/dL (1.8-2.4); Potassium 3.8 mmol/L (3.5-5.1); Protein, Total 6.9 g/dL (6.4-8.2); Sodium Level 142 mmol/L (136-145)
[2021-12-25 06:14] LABS: ALT/SGPT < 10 U/L (12-78)
[2021-12-25] MEDS ORDERED: KCL 20 MEQ/100 mL IVPB 20 MEQ/100 ML BAG IV SCH (07:00)
--- NOTE | 2021-12-25 07:21 | EKG ---
Test Date: 2021-12-24 Test Time: 21:26:39 [place] Man: BERNIE MEASUREMENT RESULTS: Intervals: Rate: 64 NC: 180 QRSD: 136 QT: 432 QTc: 445 [place]: P: 68 NC: 180 QRS: 53 T: 36 INTERPRETIVE STATEMENTS: Normal sinus rhythm Right bundle branch block Abnormal ECG Compared to ECG 12/24/2021 19:34:12 No significant changes Electronically Signed On 12-25-21 07:20:24 CDT by Julien Antony
--- NOTE | 2021-12-25 07:22 | EKG ---
Test Date: 2021-12-24 Test Time: 19:34:12 Personal Care Aide: CARLY MEASUREMENT RESULTS: Intervals: Rate: 73 VT: 174 QRSD: 132 QT: 418 QTc: 460 [place]: P: 58 VT: 174 QRS: 45 T: 35 INTERPRETIVE STATEMENTS: Normal sinus rhythm Right bundle branch block Abnormal ECG Compared to ECG 09/03/2021 14:56:05 No significant changes Electronically Signed On 12-25-21 07:20:29 CDT by Julien Antony
[2021-12-25] MEDS: FAMOTIDINE 20 MG/2 ML VIAL IV SCH ×2 (07:38→20:39)
[2021-12-25] MEDS: NA CHLORIDE 0.9% 1,000 ML IV SCH ×2 (08:35→20:39)
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
--- NOTE | 2021-12-25 08:57 | RAD REPORT ---
EXAM DESCRIPTION: RAD - Chest Single View - 12/25/2021 6:55 am CLINICAL HISTORY: vented Chest pain. COMPARISON: Chest Single View dated 12/24/2021; Chest Single View dated 12/24/2021; Chest Single View dated 09/06/2021; Chest Single View dated 09/03/2021 FINDINGS: Portable technique limits examination quality. Moderate bilateral pulmonary opacities are unchanged. The heart is mildly prominent. Enteric tube tyron cends into the upper abdomen.Enteric tube tip is at the level of the clavicular heads.
--- NOTE | 2021-12-25 08:58 | RAD REPORT ---
EXAM DESCRIPTION: RAD - Abdomen 1 View (KUB) - 12/25/2021 6:55 am CLINICAL HISTORY: TUBE Pain COMPARISON: No comparisons FINDINGS: Enteric tube tip is in the distal stomach/proximal duodenum.
[2021-12-25] MEDS ORDERED: ENOXAPARIN 40 MG/0.4 ML SQ SCH (09:00)
[2021-12-25] MEDS ORDERED: ETOMIDATE 20 MG/10 ML VIAL IV ONE (10:49)
[2021-12-25] MEDS ORDERED: SUCCINYLCHOLINE 20 MG/ML (10 ML) IV ONE (10:49)
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
--- NOTE | 2021-12-25 13:12 | RAD REPORT ---
EXAM DESCRIPTION: Chest Single View CLINICAL HISTORY: 66 years Male post intubation TECHNIQUE: One view of the chest is compared to the examination performed earlier the same day. FINDINGS: Endotracheal tube has been placed, with its tip terminating 4.6 cm above the joann. Nasog astric tube is in place, terminating beyond the mid stomach. Multifocal airspace infiltrates throughout both lungs have progressed since the prior exam. Again see n is elevation of the right hemidiaphragm. No pleural effusion or pneumothorax. Stable cardiomediasti nal silhouette. IMPRESSION: Endotracheal and nasogastric tubes have been placed. Worsening multifocal airspace infil trates. Electronically signed by: Oliva Gonsalez MD 12/25/2021 12:55 AM CDT Due to temporary technical issues with the PACS/Fluency reporting system, reports are being signed by the in house radiologists without review as a courtesy to insure prompt reporting. The interpreting radiologist is fully responsible for the content of the report.
[2021-12-25 13:39] LABS: Urine Bilirubin Negative (Negative); Urine Blood 1+ (Negative); Urine Clarity Clear (Clear); Urine Color Yellow (Yellow); Urine Glucose Negative (Negative); Urine pH 5.5 (5.0-7.0)
[2021-12-25 13:40] LABS: Urine Protein TRACE (Negative); Urine Urobilinogen 0.2 mg/dL (0.2-1.0)
[2021-12-25 13:42] LABS: Urine Bacteria <20 /HPF (<20); Urine RBC None Seen /HPF (None Seen)
[2021-12-25] MEDS: IPRATROPIUM BROM 0.5MG/2.5ML NEB SCH ×2 (14:00→20:15)
[2021-12-25] MEDS ORDERED: EPINEPHrine 1 MG/10 ML SYR IV ONE (14:30)
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
[2021-12-25] MEDS: VANCOMYCIN 2 GM in NA CHLORIDE 0.9% 500 ML IVPB SCH (18:14)
[2021-12-25] MEDS: Levofloxacin 750mg IV 750 MG/150 ML BAG IV SCH (20:38)
[2021-12-26] MEDS: IPRATROPIUM BROM 0.5MG/2.5ML NEB SCH ×4 (01:20→20:30)
[2021-12-26] MEDS: FENTANYL CITR 100 MCG/2 ML IV PRN ×3 (01:38→08:53)
[2021-12-26] MEDS: propofoL 1,000 MG/100 ML VIAL IV PRN (01:41)
[2021-12-26] MEDS: LORazepam 2 MG/ML VIAL IV PRN ×6 (01:54→22:58)
[2021-12-26] MEDS: NA CHLORIDE 0.9% 1,000 ML IV SCH (04:35)
[2021-12-26 04:55] LABS: Absolute Lymphocytes (CBC) 1.4 K/uL (0.7-4.9); Hematocrit 27.7 % (39.6-49.0); MCV 96.4 fL (80-100); MPV 7.3 fL (7.6-11.3); RBC Red Blood Cell Count 2.87 M/uL (4.33-5.43)
[2021-12-26 05:09] LABS: AST/SGOT 16 U/L (15-37); Albumin 2.5 g/dL (3.4-5.0); Alkaline Phosphatase 128 U/L (45-117); BUN Blood Urea Nitrogen 16 mg/dL (7-18); Bicarbonate 21 mmol/L (21-32); Bilirubin Total 0.2 mg/dL (0.2-1.0); Glomerular Filtration Rate 97 ml/min (=/>90); Glucose Level 82 mg/dL (74-106); Magnesium 1.9 mg/dL (1.8-2.4); Potassium 4.1 mmol/L (3.5-5.1); Sodium Level 143 mmol/L (136-145)
[2021-12-26 05:12] LABS: ALT/SGPT < 10 U/L (12-78)
[2021-12-26 05:23] LABS: Arterial Blood Carboxyhemoglob 1.3 % (0-1.5); Blood Gas Oxyhemoglobin 96.2 % (94-97); Blood O2 Saturation 98.5 % (92-98.5)
[2021-12-26] MEDS ORDERED: propofoL 1,000 MG/100 ML VIAL IV SCH (06:00)
--- NOTE | 2021-12-26 08:25 | P.PN ---
Subjective Date of Service: 12/26/21 Chief Complaint: Respiratory failure Stable on PC vent. Still agitated, copius secretions Review of Systems is unable to be obtained Physical Examination - Vital Signs Temperature: 97.1 F Blood Pressure: 109/59 Pulse: 47 Respirations: 25 Pulse Ox (%): 99 - Physical Exam General: Delirious, Unresponsive Respiratory: Crackles/rales Cardiovascular: No edema, Regular rate/rhythm Assessment And Plan - Current Problems (Diagnosis) (1) Respiratory failure Current Visit: Yes Status: Acute Plan: Resp failure ext pneumonia L>R, sputum cultures pending. DC Propofol and change to Precedex , ABG hypoxemia and hyercarbiaWBC normal chem reviewed BC cultures neg. Sputum pending/ O PC miimal O2, Poss start feeding am Qualifiers: Respiratory failure complication: unspecified whether with hypoxia or hypercapnia
[2021-12-26] MEDS: FAMOTIDINE 20 MG/2 ML VIAL IV SCH ×2 (08:37→21:01)
--- NOTE | 2021-12-26 08:40 | RAD REPORT ---
EXAM DESCRIPTION: RAD - Chest Single View - 12/26/2021 5:48 am CLINICAL HISTORY: vented Chest pain. COMPARISON: Abdomen 1 View (KUB) dated 12/25/2021; Chest Single View dated 12/25/2021; Chest Single Vi ew dated 12/24/2021; Chest Single View dated 12/24/2021 FINDINGS: Portable technique limits examination quality. Extensive bilateral pulmonary opacities are present, unchanged. Endotracheal tube tip is above the ca dimas. Enteric tube descends into the stomach. The heart is mildly enlarged in size. No displaced frac tures. IMPRESSION: Stable chest since 12/25/2021.
[2021-12-26] MEDS ORDERED: DEXMEDETOMIDINE HCL 200 MCG in NA CHLORIDE 0.9% 98 ML IV SCH (09:00)
[2021-12-26] MEDS: HYDROMORPHONE HCL 2 MG/ML inj IV PRN ×4 (09:15→21:00)
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
[2021-12-26] MEDS: VANCOMYCIN 2 GM in NA CHLORIDE 0.9% 500 ML IVPB SCH (12:25)
[2021-12-26] MEDS: DEXMEDETOMIDINE HCL 400 MCG in NA CHLORIDE 0.9% 196 ML IV SCH ×3 (12:25→23:44)
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
[2021-12-26] MEDS: Levofloxacin 750mg IV 750 MG/150 ML BAG IV SCH (21:00)
[2021-12-26] MEDS: ONDANSETRON 4 MG/2 ML VIAL IV PRN (22:58)
[2021-12-27] MEDS: IPRATROPIUM BROM 0.5MG/2.5ML NEB SCH ×5 (01:35→19:38)
[2021-12-27] MEDS: HYDROMORPHONE HCL 2 MG/ML inj IV PRN ×5 (01:46→20:12)
[2021-12-27] MEDS: LORazepam 2 MG/ML VIAL IV PRN ×6 (01:46→23:43)
[2021-12-27] MEDS: DEXMEDETOMIDINE HCL 400 MCG in NA CHLORIDE 0.9% 196 ML IV SCH ×3 (04:25→22:55)
[2021-12-27 05:02] LABS: Absolute Lymphocytes (CBC) 1.2 K/uL (0.7-4.9); Hematocrit 29.1 % (39.6-49.0); MCV 96.1 fL (80-100); MPV 7.4 fL (7.6-11.3); RBC Red Blood Cell Count 3.03 M/uL (4.33-5.43)
[2021-12-27 05:24] LABS: AST/SGOT 13 U/L (15-37); Albumin 2.5 g/dL (3.4-5.0); Alkaline Phosphatase 130 U/L (45-117); BUN Blood Urea Nitrogen 9 mg/dL (7-18); Bicarbonate 19 mmol/L (21-32); Bilirubin Total 0.4 mg/dL (0.2-1.0); Glomerular Filtration Rate 105 ml/min (=/>90); Glucose Level 97 mg/dL (74-106); Magnesium 1.7 mg/dL (1.8-2.4); Potassium 3.5 mmol/L (3.5-5.1); Sodium Level 142 mmol/L (136-145)
[2021-12-27 05:25] LABS: ALT/SGPT < 10 U/L (12-78)
[2021-12-27] MEDS: VANCOMYCIN 2 GM in NA CHLORIDE 0.9% 500 ML IVPB SCH (06:00)
[2021-12-27] MEDS ORDERED: Magnesium Sulfate 2gm IVPB 2 G/50 ML BAG IV ONE (06:06)
[2021-12-27] MEDS: KCL 20 MEQ/100 mL IVPB 20 MEQ/100 ML BAG IV SCH ×2 (06:43→11:15)
--- NOTE | 2021-12-27 08:16 | RAD REPORT ---
EXAM DESCRIPTION: [place] Single View12/27/2021 7:35 am CLINICAL HISTORY: Shortness of breath COMPARISON: December 26 FINDINGS: Minimal improvement in the diffuse bilateral pulmonary opacities. Heart remains enlarged. Endotracheal tube with its tip 1 millimeter above the top of the aortic arch NG tube in place
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
--- NOTE | 2021-12-27 11:08 | P.PN ---
Subjective Date of Service: 12/27/21 Chief Complaint: Respiratory failure Patient is improving alert and responsive cooperative cultures are negative still agitated Review of Systems is unable to be obtained Physical Examination - Vital Signs Temperature: 96 F Blood Pressure: 141/82 Pulse: 52 Respirations: 14 Pulse Ox (%): 99 - Physical Exam General: Alert, Cooperative Respiratory: Crackles/rales, Expiratory wheezes Cardiovascular: No edema, Regular rate/rhythm - Studies Microbiology Data (last 24 hrs): 12/24/21 21:54 Clean Catch Urine [place] Count - Final >100,000 CFU/ML. 12/24/21 21:54 Clean Catch Urine - Final Escherichia Coli Assessment And Plan - Current Problems (Diagnosis) (1) Respiratory failure Current Visit: Yes Status: Acute Plan: Patient's condition is stable minimal FiO2 requirement is not on any vasopressors chemistries reviewed chemistries reviewed stable to be extubated use high flow or BiPAP if needed DC vancomycin Qualifiers: Respiratory failure complication: unspecified whether with hypoxia or hypercapnia
[2021-12-27] MEDS: CEFTRIAXONE 1,000 MG in NA CHLORIDE 0.9% 50 ML IVPB SCH (12:05)
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
[2021-12-27] MEDS ORDERED: LORazepam 2 MG/ML VIAL IV ONE (12:55)
[2021-12-28] MEDS: HYDROMORPHONE HCL 2 MG/ML inj IV PRN ×6 (00:02→23:16)
[2021-12-28] MEDS: IPRATROPIUM BROM 0.5MG/2.5ML NEB SCH ×4 (01:58→19:55)
[2021-12-28] MEDS: DEXMEDETOMIDINE HCL 400 MCG in NA CHLORIDE 0.9% 196 ML IV SCH ×3 (04:35→19:56)
[2021-12-28 04:55] LABS: Hematocrit 28.3 % (39.6-49.0); MCV 96.6 fL (80-100); MPV 7.3 fL (7.6-11.3); RBC Red Blood Cell Count 2.93 M/uL (4.33-5.43)
[2021-12-28 05:14] LABS: AST/SGOT 16 U/L (15-37); Albumin 2.5 g/dL (3.4-5.0); Alkaline Phosphatase 129 U/L (45-117); BUN Blood Urea Nitrogen 8 mg/dL (7-18); Bicarbonate 22 mmol/L (21-32); Bilirubin Total 0.2 mg/dL (0.2-1.0); Glomerular Filtration Rate 99 ml/min (=/>90); Glucose Level 88 mg/dL (74-106); Magnesium 1.9 mg/dL (1.8-2.4); Potassium 4.1 mmol/L (3.5-5.1); Protein, Total 7.1 g/dL (6.4-8.2); Sodium Level 144 mmol/L (136-145)
[2021-12-28 05:36] LABS: ALT/SGPT < 10 U/L (12-78)
[2021-12-28] MEDS: LORazepam 2 MG/ML VIAL IV PRN ×3 (06:05→19:23)
[2021-12-28] MEDS: CEFTRIAXONE 1,000 MG in NA CHLORIDE 0.9% 50 ML IVPB SCH (08:46)
--- NOTE | 2021-12-28 10:55 | P.PN ---
Subjective Date of Service: 12/28/21 Chief Complaint: Delirium Patient is delirious patient is delirious disoriented Review of Systems is unable to be obtained Physical Examination - Vital Signs Temperature: 97.6 F Blood Pressure: 109/68 Pulse: 50 Respirations: 27 Pulse Ox (%): 95 - Physical Exam General: Unresponsive Respiratory: Clear to auscultation bilaterally Cardiovascular: Normal S1 S2, Edema - Studies Microbiology Data (last 24 hrs): 12/24/21 21:54 Clean Catch Urine [place] Count - Final >100,000 CFU/ML. 12/24/21 21:54 Clean Catch Urine - Final Escherichia Coli Assessment And Plan - Current Problems (Diagnosis) (1) Delirium Current Visit: Yes Status: Acute Plan: Patient is 66 patient is 66 years of age extubated yesterday is delirious apparently there is a history of excessive pain medication use appears to me that he is withdrawing from medication seems to be shivering following for his mom not cooperative advance diet as tolerated we will need to review home medications (2) MRSA (methicillin resistant staphylococcus aureus) pneumonia Current Visit: Yes Status: Acute Plan: MRSA isolated MRSA isolated from the stool sputum restart vancomycin patient is also on ceftriaxone chest x-ray from 722 still shows significant interstitial changes left side worse than the right MRSA sensitive MRSA sensitive to Bactrim Qualifiers: Laterality: left
[2021-12-28] MEDS: VANCOMYCIN 2 GM in NA CHLORIDE 0.9% 500 ML IVPB SCH (13:09)
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
[2021-12-29] MEDS: LORazepam 2 MG/ML VIAL IV PRN ×8 (00:07→23:40)
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
[2021-12-29] MEDS: IPRATROPIUM BROM 0.5MG/2.5ML NEB SCH ×5 (01:35→19:05)
[2021-12-29] MEDS: DEXMEDETOMIDINE HCL 400 MCG in NA CHLORIDE 0.9% 196 ML IV SCH ×4 (01:52→20:31)
[2021-12-29] MEDS: HYDROMORPHONE HCL 2 MG/ML inj IV PRN ×5 (03:06→23:40)
[2021-12-29 05:04] LABS: Hematocrit 28.1 % (39.6-49.0); MCV 97.1 fL (80-100); RBC Red Blood Cell Count 2.89 M/uL (4.33-5.43)
[2021-12-29 05:26] LABS: AST/SGOT 16 U/L (15-37); Albumin 2.5 g/dL (3.4-5.0); Alkaline Phosphatase 130 U/L (45-117); BUN Blood Urea Nitrogen 10 mg/dL (7-18); Bicarbonate 21 mmol/L (21-32); Bilirubin Total 0.3 mg/dL (0.2-1.0); Glomerular Filtration Rate 93 ml/min (=/>90); Glucose Level 82 mg/dL (74-106); Potassium 3.9 mmol/L (3.5-5.1); Protein, Total 7.1 g/dL (6.4-8.2); Sodium Level 144 mmol/L (136-145)
[2021-12-29 05:39] LABS: ALT/SGPT < 10 U/L (12-78)
[2021-12-29] MEDS: CEFTRIAXONE 1,000 MG in NA CHLORIDE 0.9% 50 ML IVPB SCH (07:44)
--- NOTE | 2021-12-29 12:07 | RAD REPORT ---
EXAM DESCRIPTION: CT - Head Brain Wo Cont - 12/29/2021 11:56 am CLINICAL HISTORY: AMS COMPARISON: <Comparisons> TECHNIQUE: All CT scans are performed using dose optimization technique as appropriate and may inclu de automated exposure control or mA/KV adjustment according to patient size. FINDINGS: No intracranial hemorrhage, hydrocephalus or extra-axial fluid collection.No areas of brai n edema or evidence of midline shift. The paranasal sinuses and mastoids are clear. The calvarium is intact. IMPRESSION: No acute intracranial abnormality.
[2021-12-29] MEDS: VANCOMYCIN 2 GM in NA CHLORIDE 0.9% 500 ML IVPB SCH (13:14)
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
[2021-12-29] MEDS: ONDANSETRON 4 MG/2 ML VIAL IV PRN (20:32)
[2021-12-30] MEDS: IPRATROPIUM BROM 0.5MG/2.5ML NEB SCH ×4 (01:26→20:00)
[2021-12-30] MEDS: LORazepam 2 MG/ML VIAL IV PRN ×5 (01:39→20:46)
[2021-12-30] MEDS: DEXMEDETOMIDINE HCL 400 MCG in NA CHLORIDE 0.9% 196 ML IV SCH ×2 (01:55→09:33)
[2021-12-30] MEDS: HYDROMORPHONE HCL 2 MG/ML inj IV PRN ×5 (04:55→20:46)
[2021-12-30 05:02] LABS: Hematocrit 27.7 % (39.6-49.0); MCV 95.2 fL (80-100); MPV 7.2 fL (7.6-11.3)
[2021-12-30 05:23] LABS: AST/SGOT 14 U/L (15-37); Albumin 2.6 g/dL (3.4-5.0); Alkaline Phosphatase 129 U/L (45-117); BUN Blood Urea Nitrogen 13 mg/dL (7-18); Bicarbonate 21 mmol/L (21-32); Bilirubin Total 0.3 mg/dL (0.2-1.0); Glomerular Filtration Rate 82 ml/min (=/>90); Glucose Level 75 mg/dL (74-106); Magnesium 1.9 mg/dL (1.8-2.4); Protein, Total 7.1 g/dL (6.4-8.2); Sodium Level 148 mmol/L (136-145)
[2021-12-30 05:32] LABS: ALT/SGPT < 10 U/L (12-78)
[2021-12-30] MEDS ORDERED: IPRATROPIUM BROM 0.5MG/2.5ML ONE (07:58)
[2021-12-30] MEDS ORDERED: HALOPERIDOL LACT 5 MG/ML INJ IV ONE (08:10)
[2021-12-30] MEDS: CEFTRIAXONE 1,000 MG in NA CHLORIDE 0.9% 50 ML IVPB SCH (08:21)
[2021-12-30] MEDS: THIAMINE 200 MG/2 ML INJ IVP SCH (08:22)
--- NOTE | 2021-12-30 09:33 | EKG ---
Test Date: 2021-12-27 Test Time: 06:16:33 Fibre Technologist: RT MEASUREMENT RESULTS: Intervals: Rate: 42 ME: 190 QRSD: 150 QT: 526 QTc: 439 [place]: P: 40 ME: 190 QRS: 19 T: 26 INTERPRETIVE STATEMENTS: Marked sinus bradycardia Nonspecific intraventricular block Inferior infarct, age undetermined Abnormal ECG Compared to ECG 12/24/2021 21:26:39 Myocardial infarct finding now present Sinus rhythm no longer present Right bundle-branch block no longer present Electronically Signed On 12-30-21 09:25:26 CDT by Julien Antony
[2021-12-30] MEDS ORDERED: HALOPERIDOL LACT 5 MG/ML INJ IV PRN (10:00)
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
[2021-12-30] MEDS ORDERED: WATER FOR INJ,STERILE 10 ML IM PRN (12:19)
--- NOTE | 2021-12-30 12:20 | P.PN ---
Subjective Date of Service: 12/30/21 Chief Complaint: Delirium No change in patient's condition he continues to remain agitated delirious and responsive persistently shouting Review of Systems is unable to be obtained Physical Examination - Vital Signs Temperature: 98.6 F Blood Pressure: 109/62 Pulse: 91 Respirations: 29 Pulse Ox (%): 96 - Physical Exam General: Delirious, Unresponsive Respiratory: Clear to auscultation bilaterally Cardiovascular: No edema, Normal S1 S2 Gastrointestinal: Normal bowel sounds, Soft and benign - Studies Microbiology Data (last 24 hrs): 12/24/21 22:07 Blood - Blood Aerobic Blood Culture - Final No growth in 5 days. 12/24/21 22:07 Blood - Blood Anaerobic Blood Culture - Final No growth in 5 days. 12/24/21 21:43 Blood - Blood Aerobic Blood Culture - Final No growth in 5 days. 12/24/21 21:43 Blood - Blood Anaerobic Blood Culture - Final No growth in 5 days. Assessment And Plan - Current Problems (Diagnosis) (1) Delirium Current Visit: Yes Status: Acute Plan: Patient continues to remain delirious add some Haldol and Geodon dexmedetomidine did not help patient is becoming more hypernatremia head CT is negative add thiamine also consider tube feeds start on D5 water (2) MRSA (methicillin resistant staphylococcus aureus) pneumonia Current Visit: Yes Status: Acute Plan: MRSA isolated currently on vancomycin Qualifiers: Laterality: left
[2021-12-30] MEDS: D5W 1,000 ML IV SCH (12:46)
[2021-12-30] MEDS: ZIPRASIDONE MESYLA 20 MG/VIAL IM PRN ×2 (12:48→23:22)
[2021-12-30] MEDS: VANCOMYCIN 2 GM in NA CHLORIDE 0.9% 500 ML IVPB SCH (13:00)
--- NOTE | 2021-12-30 13:56 | ECHO ---
HEIGHT: 6 ft 1 in WEIGHT: 236 lb 0 oz DATE OF STUDY: 12/30/[address]: Vance Brar MD 2-DIMENSIONAL: YES M.MODE: YES DOPPLER: YES COLOR FLOW: YES TDS: NO PORTABLE: YES DEFINITY: NO BUBBLE STUDY: NO DIAGNOSIS: MRSA, ENDOCARDITIS CARDIAC HISTORY: CATHERIZATION: SURGERY: PROSTHETIC VALVE: PACEMAKER: MEASUREMENTS (cm) DIASTOLIC (NORMALS) SYSTOLIC (NORMALS) IVSd 1.0 (0.6-1.2) LA Diam 3.8 (1.9-4.0) LVEF 69% LVIDd 4.6 (3.5-5.7) LVIDs 2.8 (2.0-3.5) %FS 39% LVPWd 0.9 (0.6-1.2) Ao Diam 3.2 (2.0-3.7) 2 DIMENSIONAL ASSESSMENT: RIGHT ATRIUM: NORMAL LEFT ATRIUM: NORMAL RIGHT VENTRICLE: NORMAL LEFT VENTRICLE: NORMAL TRICUSPID VALVE: NORMAL MITRAL VALVE: NORMAL PULMONIC VALVE: NORMAL AORTIC VALVE: NORMAL PERICARDIAL EFFUSION: NONE AORTIC ROOT: NORMAL LEFT VENTRICULAR WALL MOTION: HYPERDYNAMIC LEFT VENTRICLE. DOPPLER/COLOR FLOW: NORMAL COMMENTS: NORMAL LEFT VENTRICULAR EJECTION FRACTION WITH EJECTION FRACTION > 60%. NORMAL WALL MOTION. NO CLEAR EVIDENCE OF VEGETATIONS ON THE STUDY. RECOMMEND RASHAWN IF CLINICALLY INDICATED. TECHNOLOGIST: Wally HOLLOWAY
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
[2021-12-30] MEDS ORDERED: VITAL HP 1,000 ML BOT RTH SCH (16:00)
[2021-12-30] MEDS ORDERED: ACETAMINOPHEN 650MG/RECT SUPP PR PRN (17:15)
[2021-12-30 21:43] VITALS: O2SAT 98
[2021-12-31] MEDS: LORazepam 2 MG/ML VIAL IV PRN ×5 (00:15→12:39)
[2021-12-31] MEDS: HYDROMORPHONE HCL 2 MG/ML inj IV PRN ×5 (00:19→18:22)
[2021-12-31] MEDS: IPRATROPIUM BROM 0.5MG/2.5ML NEB SCH ×3 (02:40→14:00)
[2021-12-31] MEDS: D5W 1,000 ML IV SCH (04:49)
[2021-12-31 05:04] VITALS: BMI 31.2
[2021-12-31 05:14] LABS: Hematocrit 28.6 % (39.6-49.0); MCV 95.8 fL (80-100); MPV 7.2 fL (7.6-11.3); RBC Red Blood Cell Count 2.99 M/uL (4.33-5.43)
[2021-12-31 05:47] LABS: ALT/SGPT < 10 U/L (12-78); AST/SGOT 17 U/L (15-37); Albumin 2.7 g/dL (3.4-5.0); Alkaline Phosphatase 133 U/L (45-117); BUN Blood Urea Nitrogen 16 mg/dL (7-18); Bicarbonate 22 mmol/L (21-32); Bilirubin Total 0.3 mg/dL (0.2-1.0); Glomerular Filtration Rate 55 ml/min (=/>90); Glucose Level 95 mg/dL (74-106); Potassium 3.4 mmol/L (3.5-5.1); Protein, Total 7.5 g/dL (6.4-8.2); Sodium Level 148 mmol/L (136-145)
[2021-12-31] MEDS ORDERED: POTASSIUM 25 MEQ EFFERV TAB PO ONE (06:00)
--- NOTE | 2021-12-31 08:35 | P.PN ---
Subjective Date of Service: 12/31/21 Chief Complaint: Delirium No change patient continues to be delirious agitated and responsive Review of Systems is unable to be obtained Physical Examination - Vital Signs Temperature: 97.7 F Blood Pressure: 106/69 Pulse: 96 Respirations: 14 Pulse Ox (%): 100 - Physical Exam General: Unresponsive Respiratory: Clear to auscultation bilaterally Cardiovascular: Edema Assessment And Plan - Current Problems (Diagnosis) (1) Delirium Current Visit: Yes Status: Acute Plan: Patient continues to be delirious agitated unresponsive is also hypernatremic start patient on IV fluids continue with nasogastric tube water flushes until his sodium has been stabilized back to normal oxygenation satisfactory evaluate for an LTAC renal function is slightly worse (2) MRSA (methicillin resistant staphylococcus aureus) pneumonia Current Visit: Yes Status: Acute Plan: MRSA isolated currently on vancomycin Qualifiers: Laterality: left
[2021-12-31] MEDS: CEFTRIAXONE 1,000 MG in NA CHLORIDE 0.9% 50 ML IVPB SCH (08:54)
[2021-12-31] MEDS: THIAMINE 200 MG/2 ML INJ IVP SCH (08:54)
[2021-12-31] MEDS ORDERED: D5W 1,000 ML IV SCH (09:00)
--- NOTE | 2021-12-31 10:37 | P.PN ---
Subjective Date of Service: 12/31/21 Chief Complaint: Delirium Physical Examination - Vital Signs Temperature: 99.7 F Blood Pressure: 106/69 Pulse: 96 Respirations: 16 Pulse Ox (%): 100
--- NOTE | 2021-12-31 12:39 | EKG ---
Test Date: 2021-12-30 Test Time: 13:37:45 Multimedia Designer: OMAIRA MEASUREMENT RESULTS: Intervals: Rate: 117 MD: 164 QRSD: 128 QT: 332 QTc: 463 [place]: P: 70 MD: 164 QRS: 83 T: 40 INTERPRETIVE STATEMENTS: Sinus tachycardia Right bundle branch block Possible Inferior infarct, age undetermined Abnormal ECG Compared to ECG 12/27/2021 06:16:33 Right bundle-branch block now present Sinus bradycardia no longer present Myocardial infarct finding still present Electronically Signed On 12-31-21 12:37:24 CDT by En Walter
[2021-12-31] MEDS ORDERED: VANCOMYCIN 2 GM in NA CHLORIDE 0.9% 500 ML IVPB SCH (13:00)
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
[2021-12-31 16:53] VITALS: TEMP 98
[2021-12-31] MEDS ORDERED: VANCOMYCIN 1.5 GM in NA CHLORIDE 0.9% 500 ML IVPB SCH (17:00)
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
[2021-12-31 18:14] VITALS: BP 171/99
== END 2021-12-31 19:20 | DRG 208 ==
LOC: ER 19:14 → ERHOLD 23:36 → 3RD-ICU 12-25 00:42
PROVIDERS: ADMIT Internal Medicine; ATTEND Internal Medicine Nephrology
PROC: 5A1945Z Respiratory Ventilation, 24-96 Consecutive Hours (ICD-10-PCS; principal; 2021-12-24)
PROC: 0BH17EZ Insertion of Endotracheal Airway into Trachea, Via Natural or Artificial Opening (ICD-10-PCS; 2021-12-25)
DX: J15.212 Pneumonia due to Methicillin resistant Staphylococcus aureus (principal); J96.01 Acute respiratory failure with hypoxia; G92.8 Other toxic encephalopathy; J96.02 Acute respiratory failure with hypercapnia; N39.0 Urinary tract infection, site not specified; T83.518A Infection and inflammatory reaction due to other urinary catheter, initial encounter; G82.20 Paraplegia, unspecified; J98.11 Atelectasis; E87.2 Acidosis; M84.452K Pathological fracture, left femur, subsequent encounter for fracture with nonunion; R78.81 Bacteremia; K59.00 Constipation, unspecified; E86.0 Dehydration; E78.00 Pure hypercholesterolemia, unspecified; L89.152 Pressure ulcer of sacral region, stage 2; R91.1 Solitary pulmonary nodule; N31.8 Other neuromuscular dysfunction of bladder; L89.312 Pressure ulcer of right buttock, stage 2; R00.1 Bradycardia, unspecified; R41.0 Disorientation, unspecified; B95.61 Methicillin susceptible Staphylococcus aureus infection as the cause of diseases classified elsewhere; B96.20 Unspecified Escherichia coli [E. coli] as the cause of diseases classified elsewhere; R45.1 Restlessness and agitation; K21.9 Gastro-esophageal reflux disease without esophagitis; E78.5 Hyperlipidemia, unspecified; I10 Essential (primary) hypertension; F32.A Depression, unspecified; Z20.822 Contact with and (suspected) exposure to COVID-19; Z74.01 Bed confinement status; Z78.1 Physical restraint status
CPT/HCPCS: 31500; 36415; 51702; 70450; 71045; 71275; 74018; 74177; 80048; 80053; 80076; 80202; 80307; 81001; 81003; 81015; 82805; 82947; 83605; 83690; 83735; 83880; 84145; 84484; 85025; 85027; 85610; 87040; 87070; 87077; 87086; 87088; 87186; 87205; 87804; 93005; 93306; 94002; 94003; 94640; 94760; 99251; 99285; J0171; J0330; J0456; J1170; J1630; J1650; J2250; J2405; J2704; J3010; J3370; J3411; J3475; J3480; J3486; J7030; J7040; J7050; Q9967; U0003

== ENCOUNTER 2022-04-27 15:27 | Emergency (ER) | payer OTHER ==
--- NOTE | 2022-04-27 17:40 | RAD REPORT ---
EXAM DESCRIPTION: RAD - Knee Right 3 View - 04/27/2022 5:32 pm CLINICAL HISTORY: Pain COMPARISON: Knee Right 3 View dated 10/26/2021; Knee Right 3 View dated 10/03/2021 FINDINGS: Hardware is present in the distal femur. Diffuse osteopenia is present. Moderate soft tiss ue swelling is seen anterior aspect of the knee. No acute fracture demonstrated.
--- NOTE | 2022-04-27 18:25 | RAD REPORT ---
EXAM DESCRIPTION: US - Extremity Venous Uni Ltd - 04/27/2022 6:17 pm CLINICAL HISTORY: SWELLING Leg swelling and edema. COMPARISON: Extremity Venous Uni Ltd dated 01/26/2021 FINDINGS: Right lower extremity venous system was interrogated with Doppler technique. Normal flow, compressibility and augmentation was noted. There is no DVT present. IMPRESSION: No evidence of right lower extremity deep venous thrombosis.
[2022-04-27] MEDS ORDERED: MORPHINE 4 MG/ML SYR ONE ×2 (18:42→21:39)
[2022-04-27] MEDS ORDERED: ONDANSETRON 4 MG/2 ML VIAL ONE ×2 (18:42→21:40)
[2022-04-27 18:58] LABS: Absolute Lymphocytes (CBC) 3.2 K/uL (0.7-4.9); Hematocrit 31.9 % (39.6-49.0); Lymphocytes % 17.8 % (15.3-44.8); MCV 91.1 fL (80-100)
[2022-04-27] MEDS ORDERED: HYDROCODONE/APAP 7.5/325 MG TAB ONE (19:13)
[2022-04-27 19:22] LABS: Albumin 3.2 g/dL (3.4-5.0); Bilirubin Total 0.9 mg/dL (0.2-1.0); C-Reactive Protein 59.4 mg/L (<3.00)
[2022-04-27 19:35] LABS: MPV 7.4 fL (7.6-11.3)
--- NOTE | 2022-04-27 20:07 | RAD REPORT ---
EXAM DESCRIPTION: CT - Abdomen Pelvis Wo Contrast - 04/27/2022 7:56 pm CLINICAL HISTORY: Abdominal pain. right hip wound COMPARISON: Abdomen Pelvis W Contrast dated 12/24/2021 TECHNIQUE: CT imaging of the abdomen and pelvis was performed without contrast. Solid organ, bowel a nd vascular assessment is limited due to lack of IV and oral contrast. All CT scans are performed using dose optimization technique as appropriate and may include automated exposure control or mA/KV adjustment according to patient size. FINDINGS: Fibrotic changes are present in both lung bases. 4 cm benign cyst is present right lobe of the liver. No aggressive liver lesion or biliary dilatation .The spleen, pancreas, adrenal glands normal. Left kidney surgically absent. Right kidney shows no st one or hydronephrosis. No bowel obstruction, free air, free fluid or abscess. Sigmoid diverticulosis coli without diverticul itis. Nonvisualized appendix. Soft tissue wound is present posterior right back adjacent to right the skin. Wound is also present a nterior right lower quadrant containing small air bubbles adjacent to the right lateral iliac wing.No CT evidence of osteomyelitis. Chronic proximal left femur fracture. IMPRESSION: Posterior and anterior decubitus type right-sided wounds are noted. No definitive osteom yelitis seen, however MR imaging would be recommended if more sensitive assessment for possible osteo myelitis is clinically needed. A limited non-contrast examination was performed as detailed.
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
[2022-04-27 21:04] LABS: Platelet Estimate INCR; White Blood Cell Scan OK (OK)
[2022-04-27 21:05] LABS: Anisocytosis 1+; Blood Morphology Comment NOTED (NOT SEEN); Ovalocytes SLIGHT; Poikilocytosis SLIGHT; Polychromasia 1+
[2022-04-27 21:06] LABS: SARS-CoV-2 Antigen Rapid Res Negative (Negative)
[2022-04-27] MEDS ORDERED: NA CHLORIDE 0.9% 1,000 ML ONE (21:40)
[2022-04-27] MEDS ORDERED: NA CHLORIDE 0.9% 100 ML IV ONE (21:40)
[2022-04-27] MEDS ORDERED: VANCOMYCIN 1 GM/VIAL ONE (21:40)
[2022-04-27] MEDS ORDERED: CEFEPIME 1 GM/VIAL ONE (21:41)
[2022-04-27] MEDS ORDERED: NA CHLORIDE 0.9% 250 ML ONE (22:10)
[2022-04-27 22:51] LABS: Urine Blood 3+ (Negative); Urine Glucose Negative (Negative); Urine Protein 2+ (Negative); Urine pH 5.5 (5.0-7.0)
[2022-04-27 23:38] LABS: Urine Bacteria >50 /HPF (<20); Urine Mucus Slight /HPF (None Seen); Urine RBC 21-50 /HPF (None Seen); Urine WBC Clump Occasional /HPF (None Seen)
[2022-04-28] MEDS ORDERED: MORPHINE 4 MG/ML SYR ONE (00:29)
[2022-04-28 01:26] VITALS: TEMP 97.8
[2022-04-28 01:33] VITALS: BP 110/71; O2SAT 95
== END 2022-04-28 01:14 ==
LOC: ER 15:27
DX: L03.115 Cellulitis of right lower limb (principal); G82.20 Paraplegia, unspecified; I10 Essential (primary) hypertension; Z88.0 Allergy status to penicillin; Z20.822 Contact with and (suspected) exposure to COVID-19
CPT/HCPCS: 87040 ×2; 87088; 87070; 85025; 87086; 36415; 87205; 83605 ×2; 85652; 80053; 84145; 86140; 74176; 73562; 93971; 87811; J3370; J7050; J7030; J2405; J0692; 51702; 81003; 81015; 87077; 87186; 96361; 96365; 96375; 99284